=== PATIENT | male | born 1975 | race American Indian/Alaskan Native ===

== ENCOUNTER → 2020-08-29 14:52 | Outpatient (BNVA) | payer OTHER, SELFPAY | PROVIDERS: PCP Internal Medicine; Referring Provider Internal Medicine; Visit Provider Physician Assistant | DX: Z13.89 Encounter for screening for other disorder (principal) | CPT/HCPCS: Q3014 ==

== ENCOUNTER 2020-11-03 08:04 | Outpatient (REF) | payer OTHER, SELFPAY ==
--- NOTE | ~2020-11-03 | XR_ITS ---
EXAMINATION: XR knee LT 2V, XR knee standing BI CLINICAL INFORMATION: Reason for Exam M25.569 - Pain in unspecified knee COMPARISON: None available at the time of this dictation. TECHNIQUE: Bilateral frontal standing, left lateral and patella sunrise view. FINDINGS: BONES: No fracture or dislocation is present. JOINTS: Narrowing of joint spaces and developed osteophytes from the edges of articular surfaces suggest degenerative osteoarthritis. There is knee joint effusion. 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 Left Knee joint effusion.
--- NOTE | ~2020-11-03 | XR_ITS ---
EXAMINATION: XR knee LT 2V, XR knee standing BI CLINICAL INFORMATION: Reason for Exam M25.569 - Pain in unspecified knee COMPARISON: None available at the time of this dictation. TECHNIQUE: Bilateral frontal standing, left lateral and patella sunrise view. FINDINGS: BONES: No fracture or dislocation is present. JOINTS: Narrowing of joint spaces and developed osteophytes from the edges of articular surfaces suggest degenerative osteoarthritis. There is knee joint effusion. SOFT TISSUE: Normal XR/XR knee standing BI IMPRESSION: Mild degenerative osteoarthritis medial more than lateral compartments. Left Knee joint effusion.
== END 2020-11-03 08:05 | disposition home or self-care (01) ==
LOC: HO.HOSX 08:04
PROVIDERS: Visit Provider Orthopaedic Surgery
DX: M25.562 Pain in left knee (principal); M25.462 Effusion, left knee; M11.20 Other chondrocalcinosis, unspecified site
CPT/HCPCS: 20610; 73560; 73565; 99212

== ENCOUNTER → 2020-11-17 12:43 | Outpatient (BNVA) | payer OTHER, SELFPAY | PROVIDERS: Visit Provider Orthopaedic Surgery | DX: M11.20 Other chondrocalcinosis, unspecified site (principal) | CPT/HCPCS: 99212 ==

== ENCOUNTER → 2020-11-29 11:28 | Outpatient (BNVA) | payer OTHER, SELFPAY | PROVIDERS: PCP Internal Medicine; Visit Provider Physician Assistant ==

== ENCOUNTER 2023-09-11 14:11 | Emergency (ER) | payer OTHER, SELFPAY ==
--- NOTE | ~2023-09-11 | XR_ITS ---
EXAMINATION: XR HAND/WRIST, RIGHT CLINICAL INFORMATION: Pain after injury COMPARISON: None TECHNIQUE: PA, lateral, and oblique views of the right hand and wrist. FINDINGS: Arrow points to the ulnar aspect of the wrist. Soft tissues are mildly prominent with punctate hyperdensities radial aspect of the wrist. Chronic radial and ulnar styloid widening, question previous trauma. Radiocarpal and ulnar carpal joint space narrowings. Small bony densities adjacent to the ulna styloid. No acute fracture is recognized. XR/XR hand wrist RT IMPRESSION: Chronic appearing changes distal radius and ulna. No acute fracture recognized. Radial wrist soft tissue hyperdensities may be debris on/within the skin and/or in soft tissues.
[2023-09-11 14:12] VITALS: BP 133/95; PULSE 102; RESP 18; TEMP 36; O2SAT 97; BMI 35.7
--- NOTE | 2023-09-11 14:17 | ED_ITS ---
HPI - Extremity Problem General Chief complaint: Wound/Laceration Stated complaint: R Wrist Lac Time Seen by Provider: 09/11/23 14:34 Source: patient Mode of arrival: ambulatory Limitations: no limitations History of Present Illness HPI Narrative: Patient is a 48 year old assigned male at with a history of anemia presenting to the emergency department today with right wrist pain. Patient states that he was grinding something and the grinder set up operator thread kicked back and caught his right wrist. Patient states that he is up to date on his tetanus. Patient denies any dizziness, lightheadedness, abdominal pain, nausea, vomiting, fever, chills, blurry vision, double vision, loss of vision, chest pain, difficulty breathing, shortness of breath, back pain, night sweats, pain with urination, increased urinary frequency, increased urinary urgency, blood in his urine or stool, syncope or a near syncopal episode, bowel incontinence, bladder incontinence, bowel retention, bladder retention, or any other complaints at this time. MD Complaint: extremity pain Onset (ago): minute(s) Pain Consistency: constant Location: right and upper extremity Severity scale (1-10): 4 Quality: aching Radiation: none Relieving factors: nothing Exacerbating factors: nothing Associated symptoms: denies other symptoms Related Data Home Medications Medication Instructions Recorded Confirmed losartan 100 mg tablet 100 mg PO DAILY 08/29/20 08/29/20 naproxen 500 mg tablet 500 mg PO BID 11/03/20 Previous Rx's Medication Instructions Recorded cefuroxime axetil 250 mg tablet 250 mg PO BID 7 days #14 tabs 09/11/23 Allergies Allergy/AdvReac Type Severity Reaction Status Date / Time aspirin [ASPIRIN] AdvReac Unknown RASH Verified 09/11/23 14:12 Review of Systems 2 Constitutional: Constitutional: Reports no additional constitutional complaints, Denies chills, Denies fever(s) and Denies night sweats Eyes: Eyes: Reports no additional eye complaints, Denies blurry vision, Denies change in vision, Denies diplopia, Denies eye discharge, Denies loss of vision and Denies eye pain ENT: Denies dizziness Cardiovascular: Cardiovascular: Reports no additional cardiovascular complaints, Denies chest pain, Denies lightheadedness, Denies Loss of Consciousness and Denies dyspnea Respiratory: Respiratory: Reports no additional respiratory complaints and Denies dyspnea Gastrointestinal: Gastrointestinal: Reports no additional gastrointestinal complaints, Denies abdominal pain, Denies melena, Denies hematochezia, Denies change in bowel habits and Denies change in stool character Genitourinary: Genitourinary: Reports no additional male genitourinary complaints, Denies hematuria, Denies oliguria, Denies difficulty urinating, Denies dysuria, Denies urinary frequency, Denies urinary hesitancy, Denies urinary incontinence and Denies urinary urgency Musculoskeletal: Musculoskeletal: Reports no additional musculoskeletal complaints, Denies numbness and Denies tingling Comments: right wrist pain / laceration Neurologic: Denies dizziness, Denies loss of vision, Denies numbness and Denies tingling Psychiatric: Psychiatric: Reports no additional psychiatric complaints Endocrine: Endocrine: Reports no additional endocrine complaints Hematologic/Lymphatic: Hematologic/Lymphatic: Reports no additional hematologic/lymphatic complaints Allergic/Immunologic: Allergic/Immunologic: Reports no additional allergic/immunologic complaints PMFSH Past Medical History Attestation statement: The following information was validated with the patient. Source: old records reviewed and nursing notes reviewed Medical History Hypertension Knee arthropathy Anemia Social History Social History Household Members: Spouse and Children Alcohol intake: never Advance Directives: No Advance Directives Information Provided: No Current occupational status: unemployed Physical Exam 2 Vital Signs: Vital Signs: Last Vital Signs Temp 96.8 F 09/11/23 14:12 Pulse 102 H 09/11/23 14:12 Resp 18 09/11/23 14:12 BP 133/95 H 09/11/23 14:12 Pulse Ox 97 09/11/23 14:12 O2 Del Method Room Air 09/11/23 14:12 BMI result Body Mass Index 35.7 Const: General: cooperative, no acute distress, alert and awake Nutritional Appearance: well nourished Orientation/consciousness: patient oriented x3 Limitations: no limitations HEENT: Head: Yes normal to inspection and Yes atraumatic Ears: hearing grossly normal bilaterally and external ears normal General nose exam: Normal external nose present, no nasal discharge noted and no epistaxis Face and sinus: Yes normal facial exam, No abrasion and No laceration Mouth: Normal oral and palatal mucosa present, no drooling and no muffled voice Eyes: General: appearance normal, both eyes and all related structures P eriorbital: periorbital findings normal Eyelids: Yes eyelids normal C onjunctivae: conjunctivae normal Pupils: Equal, round and reactive pupils present EOM: EOMs intact bilaterally Neck: Neck: Yes normal visual inspection, Yes full ROM and Yes no lymphadenopathy Chest: Chest palpation & inspection: normal inspection of the chest Resp: Effort & Inspection: normal respiratory effort and able to speak in complete sentences GI: Inspection: Yes normal to inspection Neuro: General: patient oriented x3 and moves all extremities Cranial nerves: Yes Equal, round and reactive pupils present Cognition (Neuro): n ormal cognition Motor exam (neuro): 5/5 motor strength present throughout Sensory Exam: Normal double simultaneous stimulation for sensation C oordination: [id number] test normal Extrem: General: Yes full ROM and Yes capillary refill normal Elbow/forearm/wrist images: 1. 5cm laceration, no active bleeding Psych: Appearance: grossly normal Mental Status: mental status grossly normal Affect: normal affect Attitude: cooperative Thought process: N ormal thought process present Thought content: Normal thought content present Insight: Good insight present (Psych) Course Course Course Narrative: Laceration and injury of right wrist when it was closed in a door X-rays ordered This is rapid medical exam done in triage pending full evaluation and dispo by ER provider Medications Administered Discontinued Medications Generic Name Dose Route Start Last Admin Trade Name Freq PRN Reason Stop Dose Admin Lidocaine/Epinephrine 10 ml 09/11/23 14:57 09/11/23 16:39 Lidocaine Hcl 1%/Epi 1:100,000 10 Ml Vial SUBCUT 09/11/23 14:58 10 ml ONCE ONE Administration Medical Decision Making Medical Decision Making [facility] Narrative: Patient is a 48 year old assigned male at with a history of anemia presenting to the emergency department today with a right wrist laceration. Patient's physical exam was as noted in the physical exam portion of this note. Patient's right wrist x-ray showed no acute process. I explained my physical exam findings as well as all test results to the patient. I answered all questions asked by the patient. Patient's laceration was repaired without incident. Patient's PMS was intact prior to and after laceration repair. I stressed the importance of the patient taking his medication as prescribed. I stressed the importance of the patient having his sutures removed in 7-10 days. I stressed the importance of the patient performing wound checks and dressing changes. I stressed the importance of the patient following up with his primary care provider. I stressed the importance of the patient returning to the emergency department immediately if his symptoms were to worsen or if he were to develop any dizziness, shortness of breath, difficulty breathing, chest pain, blurry vision, loss of vision, nausea, vomiting, abdominal pain, fever, chills, back pain, or any other complaints. Patient verbalized agreement and understanding with this treatment plan and discharge. Differential Diagnosis Differential Diagnoses: The differential diagnosis associated with the presentation includes Forearm laceration Wrist laceration Wrist injury Admission/Observation Consideration of admission/observation: Escalation of care including admission/observation considered Patient would have been admitted to the hospital had his work up had any findings where hospital admission was appropriate and his clinical presentation warranted hospital admission. Independent Interpretation I performed an independent interpretation of an: Plain X-Ray Interpretation: My interpretation is in agreement with the radiologist's impression of this imaging study. - EXAMINATION: XR HAND/WRIST, RIGHT CLINICAL INFORMATION: Pain after injury COMPARISON: None TECHNIQUE: PA, lateral, and oblique views of the right hand and wrist. FINDINGS: Arrow points to the ulnar aspect of the wrist. Soft tissues are mildly prominent with punctate hyperdensities radial aspect of the wrist. Chronic radial and ulnar styloid widening, question previous trauma. Radiocarpal and ulnar carpal joint space narrowings. Small bony densities adjacent to the ulna styloid. No acute fracture is recognized. XR/XR hand wrist RT IMPRESSION: Chronic appearing changes distal radius and ulna. No acute fracture recognized. Radial wrist soft tissue hyperdensities may be debris on/within the skin and/or in soft tissues Dictated By: Susan Montoya MD Signed By: Electronically signed by Susan Montoya MD 09/11/23 1523 Radiology Impression Discussion of test interpretation with radiology: I have reviewed the radiologist's reading. Prescription Management I considered prescription management with: Antibiotic (given the mechanism of the patient's injury, antibiotic prescribed) Procedures Laceration Laceration 1: Site: upper extremity Side (If applicable): right Size (cm): 5 Description: irregular Depth: simple, single layer Local Anesthetic: lidocaine 1% and with epi Amount of anesthesia used (mL): 10 Pre-repair: wound explored, irrigated extensively and deep structures intact Skin layer closed with: other (prolene) Size (cm): 5-0 Number of sutures: 10 Technique: simple, interrupted Subcutaneous layer closed with: vicryl Size: 5-0 Number of sutures: 1 Technique: simple, interrupted Critical Care Time Critical Care Time Critical Care Time: Yes Total Critical Care Time: 40 Attestation: I spent 40 minutes of Critical Care Time with this patient. This does not include time spent on separately reported billable procedures. Discharge Plan Discharge Clinical Impression: Laceration Patient Disposition: Home, Self-Care Instructions: Care For Your Stitches (DC), Care For Your Absorbable Stitches (ED) Additional Instructions: Have your sutures removed in 7-10 days. Do NOT soak the affected area. Perform daily wound checks and dressing changes. Take your antibiotics. Follow up with your primary care provider. Return to the emergency department immediately if your symptoms worsen or if you develop any dizziness, shortness of breath, difficulty breathing, chest pain, blurry vision, loss of vision, nausea, vomiting, abdominal pain, fever, chills, back pain, or any other complaints. Rogelio que le retiren las suturas en 7 a 10 d?as. NO remoje el ?dominique afectada. Realice controles diarios de heridas y cambios de ap?sitos. [place] corby antibi?ticos. Rogelio un seguimiento con larry proveedor de atenci?n primaria. Regrese al departamento de emergencias inmediatamente si corby s?ntomas empeoran o si presenta mareos, dificultad para respirar, dificultad para respirar, dolor en el pecho, visi?n borrosa, p?rdida de la visi?n, n?useas, v?mitos, dolor abdominal, fiebre, escalofr?os, dolor de espalda o cualquier otras quejas. Prescriptions: New cefuroxime axetil 250 mg tablet 250 mg PO BID 7 Days Qty: 14 0RF No Action naproxen 500 mg tablet 500 mg PO BID losartan 100 mg tablet 100 mg PO DAILY Referrals: Juana Johnson MD [Primary Care Provider] - Interventions: ED Discharge Assessment Last Done: 09/11/23 17:17 Discharge Date/Time: 09/11/23 17:17 Print Language: Polish
[2023-09-11] MEDS: Lidocaine HCl 1%/Epi 1:100,000 10 ML VIAL SUBCUT (16:39)
== END 2023-09-11 17:17 | disposition home or self-care (01) ==
PROVIDERS: Emergency Provider Emergency Medicine Emergency Medical Services; PCP Internal Medicine
DX: S61.511A Laceration without foreign body of right wrist, initial encounter (principal); W29.8XXA Contact with other powered hand tools and household machinery, initial encounter; I10 Essential (primary) hypertension; D64.9 Anemia, unspecified; Y93.89 Activity, other specified; Y92.9 Unspecified place or not applicable; Y99.9 Unspecified external cause status
CPT/HCPCS: 12002; 73110; 73130; 99283; 99284

== ENCOUNTER 2023-09-20 12:06 | Emergency (ER) | payer OTHER, SELFPAY ==
[2023-09-20 12:29] VITALS: BP 132/78; PULSE 83; RESP 18; TEMP 36.8; O2SAT 97; BMI 34.4
--- NOTE | 2023-09-20 12:31 | ED.SKABFB ---
HPI - Skin/Abscess/Foreign Bdy General Chief complaint: Wound/Laceration Stated complaint: Suture Removal Time Seen by Provider: 09/20/23 12:43 Source: patient and court interpreter Mode of arrival: ambulatory Limitations: no limitations History of Present Illness HPI narrative: 48 year old Macedonian speaking male with pmhx significant for anemia presents to the ED today for suture removal. Endorses laceration to the dorsal aspect of right hand/wrist while using a bench grinder at home on 09/11/23. He was evaluated in our ED same day with 10 sutures placed. He was advised to return in 7-10 days for removal He presents today (9 days later) for removal. He endorses some numbness over the suture site which has been present since laceration occurred. Has full ROM to right fingers/wrist. Denies fever, chills, N/V, warmth over the wound or drainage. Related Data Home Medications Medication Instructions Recorded Confirmed losartan 100 mg tablet 100 mg PO DAILY 08/29/20 08/29/20 naproxen 500 mg tablet 500 mg PO BID 11/03/20 Previous Rx's Medication Instructions Recorded cefuroxime axetil 250 mg tablet 250 mg PO BID 7 days #14 tabs 09/11/23 neomycin-bacitracn Zn-polymyx 3.5 1 appl topical BID #28.3 grams 09/20/23 mg-400 unit-5,000 unit/gram top oint (Neosporin ([id number])) Allergies Allergy/AdvReac Type Severity Reaction Status Date / Time aspirin [ASPIRIN] AdvReac Unknown RASH Verified 09/20/23 12:29 Review of Systems Review of Systems: Constitutional: No fever, chills, fatigue, night sweats, weight changes ENT/Mouth: No ear pain, hearing loss, nasal congestion, sinus pain, rhinorrhea, sore throat Eyes: No eye pain, swelling, redness, vision changes, discharge Cardio: No chest pain, palpitations, BLACK, orthopnea, peripheral edema Pulm: No SOB, cough, sputum, wheezing, dyspnea, hemoptysis GI: No nausea, vomiting, hematemesis, abdominal pain, diarrhea, constipation, hematochezia, melena : No irregular bleeding, dysuria, frequency, urgency, hesitancy, hematuria, flank pain, urinary flow changes, urinary incontinence or retention MSK: No back pain, neck pain, joint pain, myalgias Skin: No lesions, rashes, +lac w/ sutures to right hand/wrist Neuro: No weakness, numbness, paresthesias, LOC, dizziness, headache Psych: No anxiety/panic, depression, SI/HI, AH/VH All other systems reviewed and are negative. [facility] Past Medical History Attestation statement: The following information was validated with the patient. Source: old records reviewed and nursing notes reviewed Medical History Hypertension Knee arthropathy Anemia Social History Social History Household Members: Spouse and Children Alcohol intake: never Advance Directives: No Advance Directives Information Provided: No Current occupational status: unemployed Physical Exam Vital Signs: Vital Signs: Last Vital Signs Temp 98.3 F 09/20/23 12:29 Pulse 83 09/20/23 12:29 Resp 18 09/20/23 12:29 BP 132/78 09/20/23 12:29 Pulse Ox 97 09/20/23 12:29 O2 Del Method Room Air 09/20/23 12:29 BMI result Body Mass Index 34.4 Vital signs stable. Const: General: cooperative, healthy appearing, comfortable and no acute distress Orientation/consciousness: patient oriented x3 Limitations: no limitations HEENT: Head: Yes normal to inspection, Yes No palpable skull fracture present, Yes normocephalic and Yes atraumatic Eyes: General: appearance normal, both eyes and all related structures Conjunctivae: conjunctivae normal Sclerae: sclerae normal Pupils: Equal, round and reactive pupils present Neck: Neck: Yes normal visual inspection and Yes no lymphadenopathy Resp: Effort & Inspection: normal respiratory effort Cardio: Other: 2+ radial and ulnar pulses Neuro: General: patient oriented x3 Cranial nerves: Yes Equal, round and reactive pupils present Extrem: Other: + 5 cm laceration noted to dorsal radial aspect of right wrist/ hand. [address] Clean, dry, and intact. No palpable warmth. No drainage. Healing well. Sensation over dorsal thumb mildly decreased. Full ROM intact to MCP/DIP of right thumb. Full ROM intact to right wrist. Screen Printing Press Operator strength intact. Finger to thumb opposition intact. Elbow/forearm/wrist images: 1. lac with sutures in place Course Course Course Narrative: 1245-- 10 sutures removed. patient tolerated well. no discharge or bleeding. healing well. bandage applied. Neosporin sent to pharmacy. Patient has remained stable throughout ED visit today. Discussed worrisome signs and symptoms and when to return to the ED. All questions answered at this time. Patient is agreeable with disposition and stable for discharge. Medical Decision Making Medical Decision Making [facility] Narrative: 48 year old Macedonian speaking male with pmhx significant for anemia presents to the ED today for suture removal. Vital signs stable. He is nontoxic appearing and in NAD. There is a 5 cm laceration noted to dorsal radial aspect of right wrist/ hand. [address] Clean, dry, and intact. No palpable warmth. No drainage. Healing well. Sensation over dorsal thumb mildly decreased. Full ROM intact to MCP/DIP of right thumb. Full ROM intact to right wrist. Screen Printing Press Operator strength intact. Finger to thumb opposition intact. ddx includes healing lac. no suspicion for infection, sepsis or bacteremia.Plan for suture removal and discharge. Differential Diagnosis Differential Diagnoses: The differential diagnosis associated with the presentation includes as above. Admission/Observation not indicated. Independent Historian Clinical information obtained from an independent historian. History obtained from or confirmed by: Spouse External Record Review External record reviewed: Inpatient record Prescription Management I considered prescription management with: Pain Medication and Antibiotic Social Determinants Patient?s care significantly limited by Social Determinants of Health including: Other Social Determinant of Health Discharge Plan Discharge Clinical Impression: Encounter for removal of sutures Patient Disposition: Home, Self-Care Instructions: Stitches Removal (ED) Additional Instructions: 10 sutures were removed from your right wrist/hand today. You may apply bacitracin or nesporin at home as needed. This has been sent to your pharmacy. Please return to the ED if the area opens, begins draining, you spike a fever, or have difficulty moving your hand as these may be signs of infection. Follow up with PCP as needed. In the case of emergency call 911. [place] le quitaron 10 suturas de larry mano derecha. Puede aplicar bacitracina o nesporina en casa seg?n sea necesario. [place] sido enviado a larry farmacia. Regrese al servicio de urgencias si el ?dominique se abre, comienza a drenar, tiene fiebre o tiene dificultad para furniture mover driver la mano, ya que estos pueden ser signos de infecci?n. Rogelio un seguimiento con el PCP seg?n sea necesario. En marco de emergencia llame al 911. Prescriptions: New Neosporin ([id number]) 3.5mg-400 unit- 5,000 unit/gram ointment 1 appl topical BID Qty: 28.3 0RF No Action cefuroxime axetil 250 mg tablet 250 mg PO BID 7 Days Qty: 14 0RF naproxen 500 mg tablet 500 mg PO BID losartan 100 mg tablet 100 mg PO DAILY Interventions: ED Discharge Assessment Last Done: 09/20/23 12:45 Discharge Date/Time: 09/20/23 12:45 Print Language: Macedonian
== END 2023-09-20 12:45 | disposition home or self-care (01) ==
PROVIDERS: Emergency Provider Emergency Medicine; PCP Internal Medicine
DX: Z48.02 Encounter for removal of sutures (principal)
CPT/HCPCS: 99282

== ENCOUNTER 2023-10-08 11:18 | Emergency (ER) | payer OTHER, SELFPAY ==
[2023-10-08 11:32] VITALS: BP 149/72; PULSE 76; RESP 16; TEMP 36.6; O2SAT 98; BMI 34.7
--- NOTE | 2023-10-08 11:39 | ED_ITS ---
HPI - General Adult General Chief complaint: Eye Problems Stated complaint: Eye irritation Time Seen by Provider: 10/08/23 13:23 Source: patient Mode of arrival: ambulatory Limitations: no limitations History of Present Illness HPI narrative: This is a 48-year-old male presenting to the emergency department complaints of sore throat, fatigue, malaise, cough, right eye redness ( and pain behind R eye), with associated discharge ongoing for the past week not improving. He denies any recent eye trauma. Denies sick contacts. Patient denies fevers, chills, chest pain, shortness breath, nausea, vomiting, abdominal pain, headache, visual disturbances, foreign body sensation in eye, weakness, pain with eye movements or eye pain. Related Data Home Medications Medication Instructions Recorded Confirmed losartan 100 mg tablet 100 mg PO DAILY 08/29/20 08/29/20 naproxen 500 mg tablet 500 mg PO BID 11/03/20 Previous Rx's Medication Instructions Recorded cefuroxime axetil 250 mg tablet 250 mg PO BID 7 days #14 tabs 09/11/23 neomycin-bacitracn Zn-polymyx 3.5 1 appl topical BID #28.3 grams 09/20/23 mg-400 unit-5,000 unit/gram top oint (Neosporin ([id number])) amoxicillin 875 mg-potassium 1 tab PO BID 10 days #20 tabs 10/08/23 clavulanate 125 mg tablet erythromycin 5 mg/gram (0.5 %) eye 1 appl ophthalmic (eye) TID 5 days 10/08/23 ointment #3.5 grams Allergies Allergy/AdvReac Type Severity Reaction Status Date / Time aspirin [ASPIRIN] AdvReac Unknown RASH Verified 10/08/23 11:36 Review of Systems Review of Systems: Yes all other systems are reviewed and are negative PMFSH Past Medical History Attestation statement: The following information was validated with the patient. Source: old records reviewed and nursing notes reviewed Medical History Hypertension Knee arthropathy Anemia Social History Social History Household Members: Spouse and Children Alcohol intake: never Advance Directives: Yes Advance Directives Information Provided: Yes Advance Directives on File: No Current occupational status: unemployed Physical Exam ED Vital Signs: Vital Signs - 24 hr 10/08/23 11:32 Temperature 97.8 F Pulse Rate 76 Respiratory Rate 16 Blood Pressure 149/72 H Pulse Oximetry 98 Oxygen Delivery Method Room Air BMI result Body Mass Index 34.7 vss Appearance: Alert.? Oriented X3.? No acute distress.? Head: Normocephalic, atraumatic, no step-offs or deformities Eyes: Pupils equal, round and reactive to light.? Extraocular movements intact and pain-free. Neck: Normal inspection.? Neck supple.? CVS: Normal heart rate and rhythm.? Pulses normal.? Respiratory: No respiratory distress.? Breath sounds normal.? Abdomen: Soft and nontender.? Skin: Skin warm and dry.? Normal skin color.? Normal skin turgor.? Extremities: No lower extremity edema.? No calf ttp. 5/5 strength to bilateral upper and lower extremities Back: No midline tenderness, no C-spine tenderness, full range of motion, no CVA tenderness bilaterally Neuro: Oriented X 3.? No motor deficit.? No sensory deficit. CN 2-12 intact Course Course Course Narrative: RME: 48-year-old male presents to ED for sore throat, or cough, itchy throat, and red eye redness with clear discharge. Patient denies any recent eye trauma. SARs strep to be ordered. [place] [facility] [place]evaluation(s) Reevaluation #1: Eye pressure l; 18, r:22 based off patient history and physical exam will treat with Augmentin for possible sinusitis versus early periorbital cellulitis. No signs of orbital cellulitis no indication for imaging I did discuss this case with my attending who agrees with diagnosis and treatment plan Educated patient on diagnosis and treatment plan, answered all question, patient verbalizes understanding. At this time patient will be discharged home, advised to return with new or worsening symptoms. Educated on worrisome signs and symptoms and when to return. At this time I feel comfortable discharge home. Time: 13:46 Medical Decision Making Medical Decision Making [facility] Narrative: 1325 48-year-old male presents with URI symptoms and right eye redness for the past week. Physical exam significant Concerned for sinusitis vs URI vs bronchitis vs viral pharyngitis with concomitant conjunctivitis. Unlikely PE, pneumonia, acute respiratory distress, acute closed angle glaucoma, wet macular degeneration, corneal abrasion, corneal ulcer. Plan at this time viral test, strep test. Differential Diagnosis Differential Diagnoses: The differential diagnosis associated with the presentation includes Concerned for sinusitis vs URI vs bronchitis vs viral pharyngitis with concomitant conjunctivitis. Unlikely PE, pneumonia, acute respiratory distress, acute closed angle glaucoma, wet macular degeneration, corneal abrasion, corneal ulcer. Admission/Observation Consideration of admission/observation: Escalation of care including admission/observation considered unlikely Consult Healthcare Provider Management of the patient was discussed with: Business Systems Advisor (My attending) Lab Data MDM Lab Attestation statement: I reviewed the patient's lab results. Labs: Lab Results 10/08/23 Range/Units 12:30 Influenza Type A (PCR) NEGATIVE (Negative) Influenza Type B (PCR) NEGATIVE (Negative) RSV RNA Qual (PCR) NEGATIVE (Negative) SARS-CoV-2 RNA (RT-PCR) NEGATIVE (Negative) S. pyogenes GrpA TOM Negative (Negative) Tests considered The following testing was considered but not selected: Breath sounds clear -no indication for cxr Extraocular movements intact and pain-free. No indication for orbital CT. Prescription Management I considered prescription management with: Antibiotic (z pack and conjunctivitis ) and Other Critical Care Time Critical Care Time Critical Care Time: No Discharge Plan Discharge Clinical Impression: Conjunctivitis, URI (upper respiratory infection), Sinusitis Patient Disposition: Home, Self-Care Instructions: Sinusitis (ED), Upper Respiratory Infection (ED), Conjunctivitis (ED) Additional Instructions: Take your medications as prescribed. If you were prescribed antibiotics today, it is important that you take your medication to their entirety, do not skip any doses, do not finish them early. Follow-up with your primary care provider this week. Return to the emergency department with new or worsening symptoms. Such as fevers, chills, chest pain, shortness of breath, nausea, vomiting, dizziness, headache, vision changes, lethargy In case of emergency call 911 Prescriptions: New erythromycin 5 mg/gram (0.5 %) ointment 1 appl ophthalmic (eye) TID 5 Days Qty: 3.5 0RF amoxicillin-pot clavulanate 875-125 mg tablet 1 tab PO BID 10 Days Qty: 20 0RF No Action cefuroxime axetil 250 mg tablet 250 mg PO BID 7 Days Qty: 14 0RF Neosporin (ygn-ubk-kxtvi) 3.5mg-400 unit- 5,000 unit/gram ointment 1 appl topical BID Qty: 28.3 0RF naproxen 500 mg tablet 500 mg PO BID losartan 100 mg tablet 100 mg PO DAILY Referrals: Juana Johnson MD [Primary Care Provider] - 2 days Stand Alone Forms: Work/School Release Interventions: ED Discharge Assessment Last Done: 10/08/23 14:09 Discharge Date/Time: 10/08/23 14:10
[2023-10-08 12:51] LABS: IDNOW Serial# 08D9AD1C; Strep A Nucleic Acid Negative (Negative)
[2023-10-08 13:26] LABS: Influenza A PCR NEGATIVE (Negative); Influenza B PCR NEGATIVE (Negative); Resp Syncy Virus RNA Qual PCR NEGATIVE (Negative); SARS COV2 PCR INHOUSE NEGATIVE (Negative)
== END 2023-10-08 14:10 | disposition home or self-care (01) ==
PROVIDERS: Emergency Provider Emergency Medicine Emergency Medical Services; PCP Internal Medicine
DX: H10.33 Unspecified acute conjunctivitis, bilateral (principal); J06.9 Acute upper respiratory infection, unspecified; J32.9 Chronic sinusitis, unspecified; Z20.822 Contact with and (suspected) exposure to COVID-19; Z11.52 Encounter for screening for COVID-19
CPT/HCPCS: 0241U; 87651; 99283; 99284

== ENCOUNTER 2024-08-20 09:49 | Outpatient (REF) | payer OTHER, SELFPAY ==
[2024-08-20 11:44] LABS: Alanine Aminotransferase 33 U/L (0-40); Albumin Level 3.8 g/dL (3.5-5.0); Alkaline Phosphatase 74 U/L (39-117); Anion Gap 10 (12-20); Aspartate Amino Transferase 34 U/L (5-37); Bilirubin Total 0.4 mg/dL (0.0-1.0); Blood Urea Nitrogen 21 mg/dL (9-16); Calcium 9.6 mg/dL (8.4-10.2); Carbon Dioxide 29 mmol/L (22-29); Chloride 108 mmol/L (96-108); Cholesterol 152 mg/dL (<200); Estimated Glomerular Filt Rate > 60; Glucose Random 122 mg/dL (60-115); HDL Cholesterol 41 mg/dL (>40); LDL Cholesterol Calculated 61 mg/dL (<100); Potassium 3.8 mmol/L (3.3-5.1); Sodium 143 mmol/L (135-145); Total Protein 7.2 g/dL (6.5-8.0); Triglycerides 251 mg/dL (<150)
[2024-08-20 12:16] LABS: Creatinine Urine 364.36 mg/dL
[2024-08-20 12:27] LABS: Microalbum/Creatinine Ratio Ur 346.3 ug/mg cr (<30)
== END 2024-08-20 09:50 | disposition home or self-care (01) ==
LOC: HO.HHCL 09:49
PROVIDERS: Visit Provider Internal Medicine
DX: E11.9 Type 2 diabetes mellitus without complications (principal)
CPT/HCPCS: 36415; 80053; 80061; 82043; 82570

== ENCOUNTER 2024-10-23 13:05 | Outpatient (REF) | payer OTHER, SELFPAY ==
[2024-10-23 16:21] LABS: MANUAL DIFF FLAG NO
[2024-10-23 16:31] LABS: Basophils Absolute Auto 0.1 X10*3/uL (0.0-0.2); Basophils Percent Auto 0.5 % (0-2); Eosinophils Absolute Auto 0.4 X10*3/uL (0.0-0.4); Eosinophils Percent Auto 4.7 % (0-4); Hematocrit 43.8 % (42.0-52.0); Hemoglobin 14.1 g/dl (14.0-18.0); Imm Gran Abs Auto 0.04 X10*3/uL (0.00-0.03); Imm Gran Pct Auto 0.4 % (0.0-0.4); Lymphocytes Absolute Auto 1.6 X10*3/uL (1.2-4.9); Lymphocytes Percent Auto 16.9 % (20-40); Mean Corpuscular HGB Conc 32.2 g/dl (31.0-36.0); Mean Corpuscular Hemoglobin 27.1 pg (27.0-33.0); Mean Corpuscular Volume 84.1 fL (80.0-98.0); Mean Platelet Volume 11.4 fL (9.4-12.4); Monocytes Absolute Auto 0.8 X10*3/uL (0.1-1.2); Monocytes Percent Auto 8.9 % (2-11); Neutrophils Absolute Auto 6.5 x10*3/uL (2.0-8.3); Neutrophils Percent Auto 68.6 % (45-73); Platelet Count 197 X10*3/uL (160-400); Red Blood Count 5.21 X10*6/uL (4.60-5.80); Red Cell Distribution Width 15.8 % (11.0-16.0); White Blood Count 9.5 X10*3/uL (4.8-10.8)
[2024-10-23 17:23] LABS: Anion Gap 13 (12-20); Blood Urea Nitrogen 17 mg/dL (9-16); Calcium 9.5 mg/dL (8.4-10.2); Carbon Dioxide 26 mmol/L (22-29); Chloride 106 mmol/L (96-108); Estimated Glomerular Filt Rate > 60; Glucose Random 108 mg/dL (60-115); Potassium 3.8 mmol/L (3.3-5.1); Sodium 141 mmol/L (135-145)
[2024-10-23 17:42] LABS: TSH reflex Free T4 1.11 uIU/mL (0.32-4.0)
[2024-10-29 13:38] LABS: Testosterone, Total 237 ng/dL (250-1100)
== END 2024-10-23 13:06 | disposition home or self-care (01) ==
LOC: HO.HHCL 13:05
PROVIDERS: Visit Provider Internal Medicine
DX: R53.83 Other fatigue (principal); I10 Essential (primary) hypertension
CPT/HCPCS: 36415; 80048; 84403; 84443; 85025

== ENCOUNTER 2025-01-07 14:45 | Outpatient (REF) | payer OTHER, SELFPAY ==
[2025-01-07 16:53] LABS: Urine Cytology See Pathology rpt
== END 2025-01-07 14:46 | disposition home or self-care (01) ==
LOC: HO.LNP 14:45
PROVIDERS: PCP Internal Medicine; Visit Provider Nurse Practitioner Family
DX: R31.29 Other microscopic hematuria (principal); E29.1 Testicular hypofunction; E11.69 Type 2 diabetes mellitus with other specified complication; R80.9 Proteinuria, unspecified; N52.1 Erectile dysfunction due to diseases classified elsewhere; R68.82 Decreased libido
CPT/HCPCS: 81003; 88112; 99202

== ENCOUNTER 2025-01-07 14:45 | Outpatient (AMB) | payer OTHER, SELFPAY ==
--- NOTE | 2025-01-07 14:59 | A.OFFVIS_ITS ---
Intake Visit Reasons: low testosterone Intake Note: New Patient presents for initial visit for low testosterone Urology Medications: none Blood Thinner: none Plumbing Warehouse Helper Required: Yes Plumbing Warehouse Helper Services: Plumbing Warehouse Helper Present Plumbing Warehouse Helper Name: Tylor [email or web address] Accompanied by: Self / Same As Patient Allergies aspirin [ASPIRIN] Adverse Reaction (Unknown, Verified 01/08/25 08:50) RASH Medication List - Last Reconciled 01/08/25 by AUBREY Blair-ERIN amlodipine 5 mg PO DAILY atorvastatin 20 mg PO DAILY colchicine mg PO hydrochlorothiazide 50 mg PO DAILY losartan 100 mg PO DAILY metformin ER 500 mg PO DAILY HPI Comments Details: Elton is pleasant 49-year-old Arabic-speaking male patient of Dr. Adkins. He has a past medical history of anemia and hypertension. He presents to the office today as a new patient for hypogonadism. In discussion with the patient today he reports having followed up with his PCP and discussing issues with low libido and maintaining his erections at which time his testosterone was drawn for further assessment evaluation and recommendations were made for urology referral. These results were reviewed and communicated with the patient today. Testosterone: 10/20 237 He reports symptoms of low libido and ED have been present for the last couple of years however feels they are worsening. We did discussed potential causes of hypogonadism as well as further workup to include labs. We did discussed lifestyle modifications to assist with hypogonadism. We also discussed further treatment options and risks and benefits of these treatment options. He denies any bothersome urinary issues. He denies urinary urgency, urinary frequency, incontinence, nocturia, hematuria, dysuria, foul smelling urine, changes to urinary stream, flank pain, fever, and or chills. He is happy with his current voiding parameters. In office urinalysis results reviewed with the patient today 3+ microscopic hematuria and 3+ proteinuria. He denies any known workplace chemical exposure or history of smoking. We did discussed potential causes of microscopic hematuria as well as further workup in risks and benefits of these interventions. I discussed reasons for blood in the urine may include but are not limited to kidney stones, cancer in the urinary tract, BPH, kidney stone disease or inflammatory conditions of the urinary tract. I have discussed workup to include cystoscopy evaluation. All questions were answered. He otherwise offers no other issues or concerns at this time. [facility] Medical History Hypertension Knee arthropathy Anemia Social History Household Members: Spouse and Children Alcohol intake: never Current occupational status: unemployed Review of Systems Const All systems reviewed & are unremarkable except as noted in HPI and below Physical Exam Const General: cooperative, healthy appearing, comfortable, no acute distress, well developed, alert and awake Nutritional Appearance: overweight Orientation/consciousness: patient oriented x3 Limitations: language barrier HEENT Head: Yes normal to inspection, Yes normocephalic and Yes atraumatic Ears: hearing grossly normal bilaterally Eyes General: appearance normal, both eyes and all related structures Neck Neck: Yes normal visual inspection and Yes trachea midline Chest Chest palpation & inspection: normal inspection of the chest Resp Effort & Inspection: normal respiratory effort and able to speak in complete sentences Cardio Rate: regular rate GI Inspection: Yes normal to inspection General: Yes no CVA tenderness Back/Spine/Pelvis Back: no CVA tenderness Skin General skin exam: no rashes or lesions noted Neuro General: patient oriented x3 Extrem General: Yes normal to inspection Psych Appearance: grossly normal and well kempt Mental Status: mental status grossly normal Speech and movement: Normal speech and movement present and Clear speech present Affect: normal affect Attitude: cooperative Thought process: Normal thought process present Thought content: Normal thought content present Insight: Fair insight present (Psych) Judgement: Fair judgement present (Psych) Results AMB Urinalysis, Automated UA Leukoctes 0 Elisabet/uL Last Edit by ALBERTINA Leon on 01/07/25 15:25 UA Nitrite Last Edit by ALBERTINA Leon on 01/07/25 15:25 UA Urobilinogen 0.2 mg/dL Last Edit by ALBERTINA Leon on 01/07/25 15:2 5 UA Protein 300 mg/dL Last Edit by ALBERTINA Leon on 01/07/25 15:25 UA pH 6.0 Last Edit by Britt Bernabe, CCMA on 01/07/25 15:25 UA Blood 200 Samuel/uL Last Edit by Britt Bernabe, [facility] on 01/07/25 15:25 UA Specific Bovey 1.020 Last Edit by Britt Bernabe, [facility] on 01/07/25 15: 25 UA Ketone Last Edit by Britt Bernabe, [facility] on 01/07/25 15:25 UA Bilirubin 0 mg/dL Last Edit by Britt Bernabe, [facility] on 01/07/25 15:25 UA Glucose 0 mg/dL Last Edit by Britt Bernabe, [facility] on 01/07/25 15:25 Results Reviewed Results Reviewed: Laboratory Last Values Urine pH (Auto) 6.0 01/07/25 15:12 Specific Bovey (Auto) 1.020 01/07/25 15:12 Urine Protein (Auto) 300 mg/dL 01/07/25 15:12 Glucose (UA)(Auto) 0 mg/dL 01/07/25 15:12 Urine Blood (Auto) 200 Samuel/uL 01/07/25 15:12 Urine Bilirubin (Auto) 0 mg/dL 01/07/25 15:12 Urine Urobilinogen (Auto) 0.2 mg/dL 01/07/25 15:12 Leukocyte Esterase (Auto) 0 Elisabet/uL 01/07/25 15:12 Assessment & Plan Assessment & Plan (1) Hypogonadism in male: Code(s): E29.1 - Testicular hypofunction Category: Medical (2) Microscopic hematuria: Code(s): R31.29 - Other microscopic hematuria Category: Medical (3) Proteinuria: Code(s): R80.9 - Proteinuria, unspecified Category: Medical (4) Erectile dysfunction associated with type 2 diabetes mellitus: Code(s): E11.69 - Type 2 diabetes mellitus with other specified complication; N52.1 - Erectile dysfunction due to diseases classified elsewhere Category: Medical (5) Low libido: Code(s): R68.82 - Decreased libido Category: Medical Plan In office urinalysis results with the patient today; as noted above; will send for urine cytology. We discussed potential causes of hypogonadism as well as further treatment options and risks and benefits of these treatment options. We discussed lifestyle modifications. Will obtain testosterone free testosterone, PSA, prolactin, LH, SHBG, and estradiol for further assessment evaluation. We discussed potential causes of microscopic hematuria as well as further workup in risks and benefits of these interventions. Will refer to Nephrology for proteinuria. We discussed at length the importance of management and diabetes for improvement in overall health and well-being in addition to weight management. He currently denies any bothersome urinary issues. He reports be happy with current voiding parameters. Follow-up in 1-3 months with labs to be completed prior; or sooner with any issues, concerns, and or questions. Orders: Orders AMB Urinalysis Automated 01/07/25 Z13.9 - Encounter for screening, unspecified Urine Cytology 01/07/25 R31.29 - Other microscopic hematuria Testosterone, Free/Total 01/07/25 E29.1 - Testicular hypofunction Prostate Specific Antigen 01/07/25 E29.1 - Testicular hypofunction Prolactin 01/07/25 E29.1 - Testicular hypofunction Lutenizing Hormone 01/07/25 E29.1 - Testicular hypofunction Sex Hormone Binding Globulin 01/07/25 E29.1 - Testicular hypofunction Estradiol Ultra Sensitive 01/07/25 E29.1 - Testicular hypofunction Urine Cytology Today R31.29 - Other microscopic hematuria Referrals Nephrology Referral R80.9 - Proteinuria, unspecified Patient Instructions: The patient had an opportunity to ask questions regarding the treatment plan. All questions were answered. Physical exam, labs, and imaging were discussed and reviewed in detail. As well as risks, benefits, and discussion of treatment choices. No major barriers to understanding were identified. The patient expressed understanding and agreement with the above treatment plan. The patient was made aware they should contact our office by phone for worsening of their current condition, the appearance of new symptoms, or with any questions or concerns. Compliance is encouraged with any medications and follow up testing that is ordered. It is a privilege to be allowed the opportunity to participate in? your urological care.? Again, if you have any questions or co ncerns If you have any questions or concerns please do not hesitate to contact me. The office is [phone]. This note is constructed using voice recognition software. While every effort has been made to ensure accuracy lithographic proofer apprentice errors may have been included. Yours sincerely, ORESTES Blair Coding Level of Care Code New Pt Level 4 (81789) Diagnoses Hypogonadism in male E29.1 Microscopic hematuria R31.29 Proteinuria R80.9 Erectile dysfunction associated with type 2 diabetes mellitus E11.69; N52.1 Low libido R68.82 Time Spent (min) 35
--- OUTSIDE RECORDS SUMMARY | 2025-01-07 17:21 | XMS_ITS | Clinical Summary ---
Author Organization [employer] Address [address] [facility] [address] [place] [address] Care Team Providers Care Parent Aide Name Role Phone Juana Johnson MD Primary Care Provide r Allergies Active Allergy Reactions Criticality Noted Date Comments Aspirin Rash Low 09/11/2023 Medications acetaminophen (Tylenol 8 Hour) 650 MG ER tablet Take 2 tablets by mouth every 8 (eight) hours. 1 Active ciprofloxacin (Cipro) 250 MG tablet Take 1 tablet by mouth every 12 (twelve) hours. 9 Active cyclobenzaprine (Flexeril) 5 MG tablet Take 1 tablet by mouth every 8 (eight) hours. 0 Active dextran 70-hypromellose (dextran-70 & hydroxypropyl methylcellulose) 0.1-0.3 % ophthalmic solution 2 drops every 8hrs 1 Active ergocalciferol (Vitamin D-2) 1.25 MG (49332 UT) capsule take 1 capsule by oral route every week 2 Active ferrous sulfate 325 (65 Fe) MG tablet take 1 by Oral route every day in the AM 2 Active glucose blood (FREESTYLE LITE) test strip use twice to three times a day as directed 2 Active lidocaine (Lidoderm) 5 % patch Place 1 patch on the skin at bed time. 0 Active lidocaine (Xylocaine) 5 % ointment Apply topically at bed time. 0 Active olopatadine (Patanol) 0.1 % ophthalmic solution Administer 1 drop into affected eye(s) every 12 (twelve) hours. 1 Active predniSONE (Deltasone) 20 MG tablet Take 2 tablets by mouth at bed time. 0 Active cetirizine (ZyrTEC) 10 MG tablet Take 1 tablet (10 mg) by mouth in the morning. 30 tablet 11 4 Active hydroCHLOROthiazi de (HYDRODiuril) 50 MG tabletIndications :Essential hypertension TAKE 1 TABLET BY MOUTH EVERY DAY 90 tablet 3 4 Active atorvastatin (Lipitor) 20 MG tabletIndications :Essential hypertension Take 1 tablet (20 mg) by mouth Once per day. 90 tablet 3 4 Active amLODIPine (Norvasc) 5 MG tabletIndications :Essential hypertension Take 1 tablet (5 mg) by mouth Once per day. 90 tablet 3 4 Active Alcohol Swabs (Alcohol Prep) 70 % padsIndications:T ype 2 diabetes mellitus without complication, without long-term current use of insulin (CMS/HCC) 1 each 2 times daily. 100 each 3 4 Active colchicine 0.6 MG tabletIndications :Articular gout Take 1 tablet (0.6 mg) by mouth Once per day. 60 tablet 6 4 Active metFORMIN, OSM, (Fortamet) 500 MG 24 hr tabletIndications :Type 2 diabetes mellitus without complication, without long-term current use of insulin (CMS/HCC) Take 1 tablet (500 mg) by mouth with evening meal. Do not crush, chew, or split. 30 tablet 11 4 Active Lancets miscIndications:T ype 2 diabetes mellitus without complication, without long-term current use of insulin (CMS/HCC) Use to test blood sugar 2 times daily 100 each 4 Active naproxen (Naprosyn) 500 MG tablet TAKE 1 TABLET BY MOUTH TWICE DAILY IN THE MORNING AND IN THE EVENING WITH MEALS 60 tablet 1 4 Active Blood Pressure Monitoring (Blood Pressure Cuff) miscIndications:E ssential hypertension 1 each Once daily. 1 each 5 Active FREESTYLE LITE test stripIndications: Type 2 diabetes mellitus without complication, without long-term current use of insulin (CMS/HCC) Use to test blood sugar 1 times daily 100 each 1 5 026 Active Lancets miscIndications:T ype 2 diabetes mellitus without complication, without long-term current use of insulin ([facility]) Use to test blood sugar 1 times daily 100 each 1 5 Active Alcohol Swabs 70 % padsIndications:T ype 2 diabetes mellitus without complication, without long-term current use of insulin ([facility]) Use to test blood sugar 1 times daily 100 each 1 5 Active Blood Glucose Monitoring Suppl (FreeStyle [place] Lite) w/Device kitIndications:Ty pe 2 diabetes mellitus without complication, without long-term current use of insulin ([facility]) Use to test blood sugar 1 times daily 1 kit 5 Active losartan (Cozaar) 100 MG tablet Take 1 tablet (100 mg) by mouth in the morning. 90 tablet 3 5 026 Active melatonin 5 MG tabletIndications :Primary insomnia TAKE 1 TABLET BY MOUTH EVERY DAY AT BEDTIME 30 tablet 2 5 Active FREESTYLE LITE test stripIndications: Type 2 diabetes mellitus without complication, without long-term current use of insulin ([facility]) Use to test blood sugar 2 times daily 100 each 12 4 025 Active Problems Problem Noted Date Diagnosed Date Low testosterone in male 10/30/2024 Other fatigue 10/23/2024 Assessment & Plan (10/23/2024 2:44 PM EDT): I will order labs today, I will contact him with results Flu-like symptoms 10/23/2024 Assessment & Plan (10/23/2024 2:44 PM EDT): I advise to rest and increase fluid intake Primary insomnia 08/04/2024 Assessment & Plan (08/04/2024 4:23 PM EST): Extensive discussion regarding sleep hygiene done during this visit ( no screens before bed, no caffeine, no heavy meal before going to bed, diminish amount of fluids at night, appropriate room environment, go to bed only when ready to go to sleep) Melatonin 5mg at bed time Chronic tension-type headache, not intractable 0 08/04/2024 Assessment & Plan (08/04/2024 4:22 PM EST): Probably tension type vs uncontrolled HTN I advised maintain hydration Acetaminophen 1000mg Q 8hrs PRN Melatonin for insomnia Better BP control Viral upper respiratory tract infection 12/24/19 Assessment & Plan (12/24/2023 10:00 AM EDT): Drink plenty of fluids and rest Left foot pain 09/25/2023 Bilateral bunions 09/25/2023 Anemia 12/10/2022 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 Initial goal of 30 min walk 3-5x/week. Increase as tolerated. - low-sodium diet (goal: <2g/day) and heart healthy diet such as DASH to reduce BP and prevent ASCVD. - Home BP monitoring 1-2 x day with goal of <140/90. - Seek immediate medical attention for chest pain, palpitations, SOB, syncope, or sudden changes in mental status. - Do not change or discontinue current prescriptions without first consulting health care provider Assessment & Plan (08/04/2024 4:24 PM EST): I advised to log BP at home, take medications every day and low Na diet RTC 2 weeks with nurse if BP is persistently not at goal <140/90mmhg increase losartan dose to 50mg daily Assessment & Plan (12/24/2023 9:58 AM EDT): -I advise not to miss any dose of his medications - Aerobic exercise to reduce BP. Initial goal of 30 min walk 3-5x/week. Increase as tolerated. - low-sodium diet (goal: <2g/day) and heart healthy diet such as DASH to reduce BP and prevent ASCVD. - Home BP monitoring 1-2 x day with goal of <140/90. - Seek immediate medical attention for chest pain, palpitations, SOB, syncope, or sudden changes in mental status. - Do not change or discontinue current prescriptions without first consulting health care provider Assessment & Plan (09/25/2023 1:40 PM EST): Maintenance: BMP: up to date Lipid Panel: up to date ASCVD Risk: on atorvastatin 20mg daily EKG: Obtain baseline at f/u - Aerobic exercise to reduce BP. Initial goal of 30 min walk 3-5x/week. Increase as tolerated. - low-sodium diet (goal: <2g/day) and heart healthy diet such as DASH to reduce BP and prevent ASCVD. - Home BP monitoring 1-2 x day with goal of <140/90. - Seek immediate medical attention for chest pain, palpitations, SOB, syncope, or sudden changes in mental status. - Do not change or discontinue current prescriptions without first consulting health care provider Assessment & Plan (12/10/2022 10:40 AM EDT): Maintenance: BMP: ordered today Lipid Panel: ordered today ASCVD Risk: Calculate pending updated labs - Aerobic exercise to reduce BP. Initial goal of 30 min walk 3-5x/week. Increase as tolerated. - low-sodium diet (goal: <2g/day) and heart healthy diet such as DASH to reduce BP and prevent ASCVD. - Home BP monitoring 1-2 x day with goal of <140/90. - Seek immediate medical attention for chest pain, palpitations, SOB, syncope, or sudden changes in mental status. - Do not change or discontinue current prescriptions without first consulting health care provider Obesity 12/10/2022 Prediabetes 12/10/2022 Type 2 diabetes mellitus 12/10/2022 Assessment & Plan (10/23/2024 2:35 PM EDT): Diabetes is: controlled - Lab Results Component Value Date HGBA1C 6.7 (A) 10/23/2024 HGBA1C 6.5 (A) 08/04/2024 HGBA1C 6.8 (A) 09/25/2023 - Lab Results Component Value Date MICROALBUR 1,262.0 08/20/2024 CREATININE 1.22 08/20/2024 -Changes: none - Diabetic eye exam:up to date - Diabetic foot exam:referral done - Continue lifestyle modifications - Continue current medications - Follow up: 3 months Assessment & Plan (08/04/2024 4:25 PM EST): Diabetes is: controlled - Lab Results Component Value Date HGBA1C 6.5 (A) 08/04/2024 HGBA1C 6.8 (A) 09/25/2023 HGBA1C 6.7 (A) 12/10/2022 - Lab Results Component Value Date CREATININE 1.22 01/03/2023 -Changes: none - Diabetic eye exam:up to date - Diabetic foot exam:pending - Continue lifestyle modifications - Continue current medications - Follow up: 3 months Assessment & Plan (12/24/2023 9:59 AM EDT): Diabetes is: almost at goal - Lab Results Component Value Date HGBA1C 6.8 (A) 09/25/2023 HGBA1C 6.7 (A) 12/10/2022 HGBA1C 6.4 (H) 09/20/2020 - Lab Results Component Value Date CREATININE 1.22 01/03/2023 -Changes: none - Diabetic eye exam:up to date - Diabetic foot exam:up to date - Continue lifestyle modifications - Continue current medications - Follow up: 3 months Assessment & Plan (09/25/2023 1:43 PM EST): Diabetes is: almost at goal - Lab Results Component Value Date HGBA1C 6.8 (A) 09/25/2023 HGBA1C 6.7 (A) 12/10/2022 HGBA1C 6.4 (H) 09/20/2020 - Lab Results Component Value Date CREATININE 1.22 01/03/2023 -Changes: none today - Diabetic eye exam: up to date - Diabetic foot exam:Patient refer today - Continue lifestyle modifications - Continue current medications - Follow up: 3 months Assessment & Plan (12/10/2022 10:40 AM EDT): - Lab Results Component Value Date HGBA1C 6.4 (H) 09/20/2020 -No results found for: GLUF, MICROALBUR, LDLCALC, CREATININE - - Diabetic eye exam: up to date - Diabetic foot exam: up to date - Continue lifestyle modifications - Continue current medications Skin tag 12/10/2022 Acute idiopathic gout of right knee 12/10/2022 Colon cancer screening 12/10/2022 Other male erectile dysfunction 12/10/2022 Encounters Date Type Department Care Team Description 11/18/[address] [address] Juana Johnson MD Primary insomnia 10/30/[address] [address] Juana Johnson MD Results 10/30/2024 Orders Only [address] [address] Juana Johnson MD Low testosterone in male (Primary Dx) 10/23/2024 11:00 AM EDT Office Visit [address] [address] Juana Johnson MD Essential hypertension (Primary Dx); Type 2 diabetes mellitus without complication, without long-term current use of insulin ([facility]); Other fatigue; Flu-like symptoms 10/23/2024 Orders Only [address] [address] Juana Johnson MD 10/23/2024 Travel 10/13/2024 Patient Outreach [address] [address] Juana Johnson MD Pre-visit Planning ((Unable to reach for PVP screening or LVM)) from Last 3 Months Immunizations Immunization Administration Dates Next Due Influenza injectable quadrivalent preservative f ree 06/25/2022 Influenza, seasonal, injectable, preservative fr ee 08/04/2024 Pfizer Covid-19 Vaccine 12+ 09/25/2023 Pneumococcal Conjugate PCV 20 12/24/2023 Tdap 06/25/2022 Family History Medical History Relation Name Comments Heart attack Father No Known Problems Maternal Grandfather Alzheimer's disease Mother Hypertension Sister Relation Name Status Comments Father Maternal Grandfather Mother Sister Social History Tobacco Use Types Packs/Day Years Used Date Smoking Tobacco: Never Passive Smoke Exposure: Never Smokeless Tobacco: Never Tobacco Cessation:Counseling Given: Not Answered Alcohol Use Standard Drinks/Week Comments Never 0 (1 standard drink = 0.6 oz pur e alcohol) Alcohol Answer Date Recorded Frequency of Alcohol Consumption Not on file 12/24/2023 Average Number of Drinks Not on file 024 Frequency of Binge Drinking Not on file 11/27 Score 0 12/24/2023 Depression Answer Date Recorded Patient Health Questionnaire-9 Score 0 08/04/2024 Patient Health Questionnaire-9 Score 0 08/04/2024 Last PHQ-9: Questionnaire Data Not on file 0 08/04/2024 Housing Stability Answer Date Recorded What is your housing situation today? I have louise polo 12/24/[address] you li ve. Do you have problems with any of the following? None of the above 12/24/2023 Food Insecurity Answer Date Recorded Within the past 12 months, y ou worried that your food would run out before you got money to buy more: Never True 12/24/2023 Within the past 12 months,th e food you bought just didn't last and you didn't have enough money to get more: Never True Transportation Answer Date Recorded In the past 12 months, has l ack of transportation kept you from medical appts, meetings, work or from getting things needed for daily living? No 12/24/2023 Utilities Answer Date Recorded In the past 12 months, has t he electric, gas, oil or water company threatened to shut off services in your home? No 12/24/2023 Depression Answer Date Recorded Patient Health Questionnaire-2 Score 0 08/04/2024 Sex and Gender Information Value Date Recorded Sex Assigned at Male 05/28/2022 10:34 AM EDT Legal Sex Male 10:34 AM EDT Gender Identity Male 05/28/2022 10:34 AM EDT Sexual Orientation Straight 05/28/2022 10 :34 AM EDT Last Filed Vital Signs Vital Sign Reading Time Taken Comments Blood Pressure 142/70 10/23/2024 11:20 AM EDT Pulse 88 10/23/2024 11:20 AM EDT Temperature 36.9 ??C (98.4 ??F) 10/23/2024 11:20 AM E DT Respiratory Rate 21 10/23/2024 11:20 AM EDT Oxygen Saturation 99% 10/23/2024 11:20 AM EDT Inhaled Oxygen Concentration - - Weight 112 kg (246 lb) 10/23/2024 11:20 AM EDT Height 177.8 cm (5' 10 ) 10/23/2024 11:20 AM EDT Body Mass Index 35.3 10/23/2024 11:20 AM EDT Plan of Treatment Upcoming Encounters Date Type Department Care Team (Late st Contact Info) Description 04/26/2025 10:00 AM EDT Office Visit [facility] [address], [place] [phone] Mauricio, Prema, OD [address] [place] [address] Health Maintenance Due Date Last Done Comments CT Colonography 1973 Colonoscopy 1973 FIT 1973 FOBT 1973 Sigmoidoscopy 1973 Alcohol/Substance Use Screening 1985 Family Planning (PISQ) 1988 Hepatitis B Vaccines (1 of 3 - 19+ 3-dose series) 1992 Zoster Vaccines (1 of 2) 2023 Diabetes: Foot Exam 12/11/2023 12/10/2022, COVID-19 Vaccine ( season) 2024 09/25/2023, 07/13/2021, 11/28/2020, Additional history exists SDOH Screening 12/23/2024 12/24/2023 Diabetes: Hemoglobin A1C 04/25/20252 025, 08/04/2024, 09/25/2023, Additional history exists Depression Screening 08/04/2025 08/04/2024, 08/04/19 Diabetes: Urine Protein Screening 08/20/2025 08/20/2024, 01/03/2023 Lipid Panel 08/20/2025 08/20/2024, 06/0 02/2023, 09/20/2020 Disability Screening 10/23/2025 10/23/2024 Tobacco Screening 10/23/2025 10/23/2024 Eye Exam 11/17/2025 11/18/2023, 10/28, 11/18/2023, Additional history exists Colorectal Cancer Screening 11/05/2026 FIT DNA/Cologuard 11/05/2026 11/06/2023 DTaP/Tdap/Td Vaccines (2 - Td or Tdap) 06/25/2032 06/25/2022 RSV Patients and Patients Aged 60 years or older (1 - 1-dose 75+ series) 2048 HIV Screening Completed 07/21/2019 Hepatitis C Screening Completed 07/21/2019 Pneumococcal Vaccine: 50+ Years Completed 12/24/2023 Influenza Vaccine Completed 08/04/2024, 06/25/2022 HIB Vaccines Aged Out No longer eligi ble based on patient's age to complete this topic HPV Vaccines Aged Out No longer eligi ble based on patient's age to complete this topic Hepatitis A Vaccines Aged Out No long er eligible based on patient's age to complete this topic IPV Vaccines Aged Out No longer eligi ble based on patient's age to complete this topic Meningococcal B Vaccine Aged Out No l onger eligible based on patient's age to complete this topic Meningococcal Vaccine Aged Out No ahsan araseli eligible based on patient's age to complete this topic RSV under 20 months Aged Out No longe r eligible based on patient's age to complete this topic Rotavirus Vaccines Aged Out No longer eligible based on patient's age to complete this topic Procedures Procedure Name Priority Date/Time Associated Diagnosis Comments BASIC METABOLIC PANEL Routine 10/23/2024 1:08 PM EDT TESTOSTERONE, TOTAL, MALES (ADULT), IA Routine 10/23/2024 1:08 PM EDT Other fatigue CBC WITH AUTO DIFFERENTIAL Routine 10/23/2024 1:08 PM EDT Other fatigue TSH W/REFLEX TO FT4 Routine 10/23/2024 1 :08 PM EDT Other fatigue POCT INFLUENZA B (ID NOW RAPID MOLECULAR) Routine 10/23/2024 11:47 AM EDT Other fatigue POCT INFLUENZA A (ID NOW RAPID MOLECULAR) Routine 10/23/2024 11:47 AM EDT Other fatigue POCT RAPID COVID ANTIGEN Routine 10/23/2024 11:43 AM EDT Other fatigue POCT GLYCATED HEMOGLOBIN, TOTAL Routine 10/23/2024 11:25 AM EDT Type 2 diabetes mellitus without complication, without long-term current use of insulin (CMS/HCC) POCT GLUCOSE Routine 10/23/2024 11:24 AM EDT Type 2 diabetes mellitus without complication, without long-term current use of insulin (CMS/HCC) ALBUMIN, RANDOM URINE W/CREATININE Routine 08/20/2024 9:52 AM EST Type 2 diabetes mellitus without complication, without long-term current use of insulin (CMS/HCC) LIPID PANEL, STANDARD Routine 08/20/2024 9:52 AM EST Type 2 diabetes mellitus without complication, without long-term current use of insulin (CMS/HCC) LAB COLOGUARD?? COLON CANCER SCREEN Routine 11/06/2023 10:00 AM EDT Colon cancer screening ZZZ HISTORICAL HEPATITIS C ANTIBODY RFLX Routine 07/21/2019 9:00 AM EST ZZZ HISTORICAL HIV AB/AG Routine 07/21/2019 9:00 AM EST from Last 3 Months or Most Recently Relevant to Health Maintenance Results * TSH W/Reflex to FT4 (10/23/2024 1:08 PM EDT) TSH reflex Free T4 1.11 0.32 - 4.0 uIU/mL [facility] Blood Venous blood specimen / Unknown 10/23/2024 1:08 PM EDT 10/23/2024 4:18 PM EDT us Juana Adkins MD LAB BLOOD ORDERABLES Final Result [facility] [address], [place] [phone] * (ABNORMAL) CBC auto differential (10/23/2024 1:08 PM EDT) White Blood Count 9.5 4.8 - 10.8 X10*3/uL [facility] Red Blood Count 5.21 4.60 - 5.80 X10*6/uL [facility] Hemoglobin 14.1 14.0 - 18.0 g/dl [facility] Hematocrit 43.8 42.0 - 52.0 % [facility] Mean Corpuscular Volume 84.1 80.0 - 98.0 fL [facility] Mean Corpuscular Hemoglobin 27.1 27.0 - 33.0 pg [facility] Mean Corpuscular HGB Conc 32.2 31.0 - 36.0 g/dl [facility] Red Cell Distribution Width 15.8 11.0 - 16.0 % [facility] Platelet Count 197 160 - 400 X10*3/uL [facility] Mean Platelet Volume 11.4 9.4 - 12.4 fL [facility] Neutrophils Percent Auto 68.6 45 - 73 % [facility] Imm Gran Pct Auto 0.4 0.0 - 0.4 % [facility] Lymphocytes Percent Auto 16.9(L) 20 - 40 % [facility] Monocytes Percent Auto 8.9 2 - 11 % [facility] Eosinophils Percent Auto 4.7(H) 0 - 4 % [facility] Basophils Percent Auto 0.5 0 - 2 % [facility] NRBC Pct Auto 0.0 0.0 - 0.2 /100WBC [facility] Neutrophils Absolute Auto 6.5 2.0 - 8.3 x10*3/uL [facility] Imm Gran Abs Auto 0.04(H) 0.00 - 0.03 X10*3/uL [facility] Lymphocytes Absolute Auto 1.6 1.2 - 4.9 X10*3/uL [facility] Monocytes Absolute Auto 0.8 0.1 - 1.2 X10*3/uL [facility] Eosinophils Absolute Auto 0.4 0.0 - 0.4 X10*3/uL [facility] Basophils Absolute Auto 0.1 0.0 - 0.2 X10*3/uL [facility] NRBC Abs Auto 0.000 0.0 - 0.012 X10*3/uL [facility] Blood Venous blood specimen / Unknown 10/23/2024 1:08 PM EDT 10/23/2024 4:18 PM EDT Juana Adkins MD LAB BLOOD ORDERABLES Final Result [facility] [address] [place] [address] [phone] * (ABNORMAL) Testosterone, Total, males (Adult), IA (10/23/2024 1:08 PM EDT) Testosterone, Total 237(A) 250 - 1100 ng/dL [facility] Comment:For additional infor donna, please refer [email or web address](This link is being provided for informational/educational purposes only.)This test was developed and its analytical performancecharacteristics have been determined by [employer] [place], [place]. It hasnot been cleared or approved by the U.S. Food and DrugAdministration. This assay has been validated pursuantto the CLIA regulations and is used for clinicalpurposes.THIS TEST WAS PERFORMED AT:[id number] [place] [address]LVFERWQARISTIDES MARADIAGA MD,PHD Blood Venous blood specimen / Unknown 10/23/2024 1:08 PM EDT 10/23/2024 4:18 PM EDT us Juana Adkins MD LAB BLOOD ORDERABLES Final Result Performing Organization Address [facility] Co de Phone Number [facility] [address] [place] [address] [phone] * (ABNORMAL) Basic Metabolic Panel (10/23/2024 1:08 PM EDT) Pathologist [facility] Sodium 141 135 - 145 mmol/L [facility] Potassium 3.8 3.3 - 5.1 mmol/L [facility] Chloride 106 96 - 108 mmol/L [facility] Carbon Dioxide 26 22 - 29 mmol/L [facility] Anion Gap 13 12 - 20 [facility] Urea Nitrogen (BUN) 17(H) 9 - 16 mg/dL [facility] Creatinine, Serum 1.19 0.5 - 1.4 mg/dL [facility] Estimated Glomerular Filt Rate >60 [facility] Comment:Chronic Kidney Disea se: Estimated GFR < 60 mL/min/1.17y5Bictan Kidney Disease: Estimated GFR < 15 mL/min/1.73m2 Glucose 108 60 - 115 mg/dL [facility] Calcium 9.5 8.4 - 10.2 mg/dL [facility] 10/23/2024 1:08 PM EDT 10/23/2024 4:18 PM EDT us Juana Adkins MD LAB BLOOD ORDERABLES Final Result Performing Organization Address [facility] Co de Phone Number [facility] [address] [place] [address] [phone] * POCT Rapid Influenza B SALDANA ID NOW (10/23/2024 11:47 AM EDT) Pathologist [facility] Influenza B Negative Negative, Indeterminate [facility] QC Media Lot # [id number] [facility] Lot# Expiration Date [id number] [facility] Swab 10/23/2024 11:4 7 AM EDT Juana Adkins MD POINT OF CARE TEST EN TER/EDIT ORDERABLES Final Result Performing Organization Address City/[facility]/ZIP Co de Phone Number [facility] [address] [place] [phone] * POCT Rapid Influenza A SALDANA ID NOW (10/23/2024 11:47 AM EDT) Influenza A Negative Negative, Indeterminate [facility] QC Media Lot # [id number] [facility] Lot# Expiration Date [facility] Swab 10/23/2024 11:4 7 AM EDT Juana Adkins MD POINT OF CARE TEST EN TER/EDIT ORDERABLES Final Result Performing Organization Address City/[facility] Co de Phone Number [facility] [address] [place] [phone] * POCT Rapid Covid-19 BinaxNOW (10/23/2024 11:43 AM EDT) Pathologist [facility] Rapid COVID Ag Negative QC Media Lot # [id number] Lot# Expiration Date 026 Swab 10/23/2024 11:4 3 AM EDT Juana Adkins MD POINT OF CARE TEST EN TER/EDIT ORDERABLES Final Result * (ABNORMAL) POCT HGB A1C (10/23/2024 11:25 AM EDT) Hemoglobin A1C 6.7(A) 4.0 - 6.0 % QC Media Lot # [id number] Lot# Expiration Date ,026 Blood 10/23/2024 11:2 5 AM EDT Juana Adkins MD POINT OF CARE TEST EN TER/EDIT ORDERABLES Final Result * POCT Glucose (10/23/2024 11:24 AM EDT) Glucose Blood, POC 119 60 - 200 mg/dL QC Media Lot # [id number] Lot# Expiration Date Blood Capillary blood specimen / Unknown 10/23/2024 11:24 AM EDT Juana Adkins MD POINT OF CARE TEST EN TER/EDIT ORDERABLES Final Result * (ABNORMAL) Albumin, Random Urine W/Creatinine (08/20/2024 9:52 AM EST) Creatinine, Urine 364.36 mg/dL [facility] Microalbumin Urine 1,262.0 mg/L [facility] Microalbum Creatinine Ratio Ur 346.3(H) <30 ug/mg cr [facility] Comment:Albumin/Creatinine R at Reference Ranges: Normal: < 30 ug/mg creatinine Microalbuminuria: 30 - 300 ug/mg creatinineClinical Albuminuria: > 300 ug/mg creatinine Urine (Urine, Random) 08/20/2024 9:52 AM EST 08/20/2024 11:27 AM EST us Juana Adkins MD LAB URINE ORDERABLES Final Result [facility] [address] [place] [address] [phone] * (ABNORMAL) Lipid Panel, Standard (08/20/2024 9:52 AM EST) Triglycerides 251(H) <150 mg/dL [facility] Comment:Desirable Triglyceri de: less than 150 mg/dLBorderline High Triglyceride 150-199 mg/dLHigh Triglyceride: 200-499 mg/dLVery High Triglyceride: greater than or equal to 5OO mg/dL Cholesterol 152 <200 mg/dL [facility] Comment:Desirable Cholestero l: less than 200 mg/dLBorderline High Cholesterol: 200-239 mg/dLHigh Cholesterol: greater than 239 mg/dL LDL Cholesterol Calculated 61 <100 mg/dL [facility] Comment:Desirable LDL: less than 100 mg/dLNear Optimal/Above Optimal LDL: 110- 129 mg/dLBorderline High LDL: 130-159 mg/dLHigh LDL: 160-189 mg/dLVery High LDL: greater than or equal to 190 mg/dL HDL Cholesterol 41 >40 mg/dL [facility] Comment:Desirable HDL: great er than 40 mg/dL Note: This HDL assay may give artificially low results in patients with liver disease. Blood Venous blood specimen / Unknown 08/20/2024 9:52 AM EST 08/20/2024 11:20 AM EST Juana Adkins MD LAB BLOOD ORDERABLES Final Result [facility] [address] [place] [phone] * Cologuard?? colon cancer screening (11/06/2023 10:00 AM EDT) Cologuard Result Negative Negative 11/13/19 8:34 AM EDT [employer] [facility] (CLIA #:[id number]) Comment: NEGATIVE TEST RESULT. A negative Cologuard result indicates a low likelihood that a colorectal cancer (CRC) or advanced adenoma (adenomatous polyps with more advanced pre-malignant features) ??is present. The chance that a person with a negative Cologuard test has a colorectal cancer is less than 1 in 1500 (negative predictive value >99.9%) or has an ??advanced adenoma is less than ??5.3% (negative predictive value 94.7%). These data are based on a prospective cross-sectional study of 10,000 individuals at average risk for colorectal cancer who were screened with both Cologuard and colonoscopy. (Tania Phan al, N Engl J Med 2014;370(14):1286- 1297) The normal value (reference range) for this assay is negative. COLOGUARD RE-SCREENING RECOMMENDATION: Periodic colorectal cancer screening is an important part of preventive healthcare for asymptomatic individuals at average risk for colorectal cancer. ??Following a negative Cologuard result, the [place] [employer] and U.S. Multi-Society Task Force screening guidelines recommend a Cologuard re-screening interval of 3 years. References: [place] [employer] Guideline for Colorectal Cancer Screening: https://www.cancer.org/cancer/ggdgh-yzggsz-yifvam/pkpevpwyu-gdlbhteup-tmudewp/ac s-rec ommendations.html.; Del DK, Patience CAVAZOS, Matthew ChavesK, Colorectal Cancer Screening: Recommendations for Physicians and Patients from the U.S. Multi-Society Task Force on Colorectal Cancer Screening , Am J Gastroenterology 2017; 112:0389-4002. TEST DESCRIPTION: Composite algorithmic analysis of stool DNA-biomarkers with hemoglobin immunoassay. ?? Quantitative values of individual biomarkers are not reportable and are not associated with individual biomarker result reference ranges. Cologuard is intended for colorectal cancer screening of adults of either sex, 45 years or older, who are at average-risk for colorectal cancer (CRC). Cologuard has been approved for use by the U.S. FDA. The performance of Cologuard was established in a cross sectional study of average-risk adults aged 50-84. Cologuard performance in patients ages 45 to 49 years was estimated by sub-group analysis of near-age groups. Colonoscopies performed for a positive result may find as the most clinically significant lesion: colorectal cancer [4.0%], advanced adenoma (including sessile serrated polyps greater than or equal to 1cm diameter) [20%] or non- advanced adenoma [31%]; or no colorectal neoplasia [45%]. These estimates are derived from a prospective cross-sectional screening study of 10,000 individuals at average risk for colorectal cancer who were screened with both Cologuard and colonoscopy. (Tania Morales et al, N Engl J Med 2014;370(14):8854-2763.) Cologuard may produce a false negative or false positive result (no colorectal cancer or precancerous polyp present at colonoscopy follow up). A negative Cologuard test result does not guarantee the absence of CRC or advanced adenoma (pre-cancer). The current Cologuard screening interval is every 3 years. ([place] [employer] and U.S. Multi-Society Task Force). Cologuard performance data in a 10,000 patient pivotal study using colonoscopy as the reference method can be accessed at the following location: www.[employer].Lezu365/results. Additional description of the Cologuard test process, warnings and precautions can be found at www.cologuard.com. Stool specimen (specimen) 11/06/2023 10:00 AM EDT 11/07/2023 2:00 PM EDT us Juana Adkins MD LAB MOLECULAR DIAGNOS TICS ORDERABLES Final Result [facility] [facility] (CLIA #:[id number]) [address] [place] [address], * HEPATITIS C ANTIBODY RFLX (07/21/2019 9:00 AM EST) Pathologist [facility] HEPATITIS C ANTIBODY NONREACTIVE NONREACTIVE [facility] Comment: Antibodies to HCV not detected; does not exclude early acute HCV infection. 07/21/2019 9:00 AM EST us Juana Adkins MD HISTORICAL/NON ORDERA BLE LABS Final Result Performing Organization Address [facility] Co de Phone Number [facility] [address] * HIV AB/AG (07/21/2019 9:00 AM EST) Pathologist [facility] HIV AG/AB NONREACTIVE [facility] Comment: HIV-1 p24 Ag and/or HIV-1/HIV-2 Ab not detected. ?? A test result that is nonreactive does not exclude the possibility of exposure to or infection with HIV-1 and/or HIV-2. Nonreactive results in this assay for individuals with prior exposure to HIV-1 and/or HIV-2 may be due to antigen and antibody levels that are below the limit of detection of this assay. ?? The [facility] HIV Ag/Ab Combo assay result and supplemental assay results should be interpreted in conjunction with the patient's clinical presentation, history and other laboratory results. ??If the results are inconsistent with clinical evidence, additional testing is suggested to confirm the result. 07/21/2019 9:00 AM EST us Juana Adkins MD HISTORICAL/NON ORDERA BLE LABS Final Result [facility] [address] [place] [address], from Last 3 Months or Most Recently Relevant to Health Maintenance Insurance [facility] [address] [place] [id number] Care Teams Parent Aide Relationship Specialty Start Date End Date Juana Johnson MD [address] [place] [address] PCP - General Family Medicine 08/12/18
== END 2025-01-07 16:23 | disposition home or self-care (01) ==
LOC: HO.HUSH 14:46
PROVIDERS: PCP Internal Medicine; Visit Provider Nurse Practitioner Family
DX: Z13.9 Encounter for screening, unspecified (principal)

== ENCOUNTER 2025-03-03 14:01 | Emergency (ER) | payer OTHER, SELFPAY ==
--- NOTE | ~2025-03-03 | XR_ITS ---
EXAMINATION: XR FINGERS LEFT HISTORY: avulsion injury L middle finger COMPARISON: There are no prior studies available for comparison. FINDINGS: Three views of the left middle finger are submitted. Osseous mineralization is normal. There is a fracture of the distal tuft which demonstrates corticated margins and appears chronic. No definite acute fracture is seen. There is no dislocation. The patient is status post internal fixation of the distal radius. There is degenerative change of the proximal carpal compartment. There is flattening of the 3rd metacarpal.. The soft tissues are unremarkable. XR/XR finger LT min 2V IMPRESSION: Fracture of the distal tuft of the middle finger appears chronic. Electronically signed by: Soy Marroquin MD 03/03/2025 02:47 PM EDT
[2025-03-03 14:09] VITALS: BP 151/92; PULSE 98; RESP 18; TEMP 36.6; O2SAT 98; BMI 34.4
--- NOTE | 2025-03-03 14:11 | ED_ITS ---
HPI - General Adult General Chief complaint: General Medical Stated complaint: Grant missing L hand middle finger, bleeding Time Seen by Provider: 03/03/25 15:11 Source: patient Mode of arrival: ambulatory Limitations: no limitations History of Present Illness ED Provider: Bi Santiago PA-C HPI narrative: 49-year-old right-hand dominant male with medical history of diabetes presents to the ED today after crushing his left 3rd digit between car Oracio and concrete when trying to work on his car. Patient is UTD on tetanus. Related Data Home Medications ?Medication ?Instructions ?Recorded ?Confirmed losartan 100 mg tablet 100 mg PO DAILY 08/29/2008/18 amlodipine 5 mg tablet 5 mg PO DAILY 01/07/25 atorvastatin 20 mg tablet 20 mg PO DAILY 01/07/25 colchicine 0.6 mg tablet mg PO 01/07/25 hydrochlorothiazide 50 mg tablet 50 mg PO DAILY metformin 500 mg tablet,extended 500 mg PO DAILY 01/07 release 24 hr Previous Rx's ?Medication ?Instructions ?Recorded cephalexin 500 mg capsule 500 mg PO BID 7 days #14 cap s 03/03/25 Allergies Allergy/AdvReac Type Severity Reaction Status Date / Time No Known Allergies Allergy Verified 03/03/25 14:11 Review of Systems 2 Review of Systems: CONST: Negative for fever, body aches and chills. HENT: Negative for neck pain/stiffness, headache, congestion, sore throat, swelling. EYES: Negative for discharge/pain or vision changes. RESP: Negative for cough/hemoptysis and shortness of breath. CV: Negative chest pain, difficulty breathing, palpitations. ABD: Negative pain, nausea, vomiting. : Negative increase frequency, dysuria, blood in urine or stool. MUSC: Negative for muscle aches, edema. POS pain/bleeding of L 3rd digit SKIN: Negative rash, lesions/sores. NEURO: Negative headache, dizziness, weakness. Yes all other systems are reviewed and are negative PMFSH Past Medical History Attestation statement: The following information was validated with the patient. Source: old records reviewed and nursing notes reviewed Medical History Hypertension Knee arthropathy Anemia Social History Social History Household Members: Spouse and Children Alcohol intake: never Advance Directives: No Advance Directives Information Provided: Yes Do you have a plan to hurt others: No Plan Current occupational status: unemployed Physical Exam ED Vital Signs: Vital Signs - 24 hr 03/03/25 14:09 Temperature 98 F Pulse Rate 98 Respiratory Rate 18 Blood Pressure 151/92 H Pulse Oximetry 98 BMI result Body Mass Index 34.4 GENERAL APPEARANCE: ?AxOx4, generally well-appearing, no acute distress. HEENT: ?NC, AT. MMM. EOMI, clear conjunctiva, oropharynx clear. NECK: ?Supple without lymphadenopathy.? No stiffness or restricted ROM. HEART:? Normal rate and regular rhythm, normal S1/S1, no m/r/g LUNGS:? CTAB, moving air well. No crackles or wheezes are heard. ABDOMEN: ?Soft, nontender, nondistended with good bowel sounds heard. BACK: No CVAT, no obvious deformity. EXTREMITIES: ?Without cyanosis, clubbing or edema. SEE PHOTO OF L hand 3rd digit. Third digit with full ROM of MCP, PIP, DIP, with SILT, no TTP over tendons. NEUROLOGICAL: ?Grossly nonfocal. Alert and oriented, moving all 4 extremities. Observed to ambulate with normal gait. Skin: ?Warm and dry without any rash. Course Course Course Narrative: This is a Rapid Medical Examination (RME) performed by Jose Juan Baker PA-C in triage. Full HPI, ROS, assessment and treatment plan per primary provider in the Main ED. Hx: 49 yo australian speaking M, hx DM, right hand dominant, here for eval of L middle finger injury occurring [employer] when he was working on a car and a oracio failed, crushing the finger. tdap UTD. PE/vitals: avulsion injury to distal tip of L finger, no nail involvement. FROM intact to digit. Plan: xrs Medical Decision Making Medical Decision Making MDM Narrative: 49-year-old right-hand dominant male with medical history of diabetes presents to the ED today after crushing his left 3rd digit between car Oracio and concrete when trying to work on his car. Patient is UTD on tetanus. VSS, left hand 3rd digit with avulsion injury, tuft fracture of the distal phalanx, scant bleeding in triage. Third digit with full ROM of MCP, PIP, DIP, no TTP over or ventral or dorsal tendons, compartments soft. XR left 3rd digit reveals close tuft fracture of the distal 3rd phalanx. I reached out to orthopedic PA Nelsy Melo who recommended irrigation, Xeroform dressing, nonstick bandage and wrapping finger with follow up outpatient in office with Dr. Han. Patient will be prescribed 7 day course of Keflex for prophylactic coverage. I counseled patient on care of this wound including keeping the finger wrap for 24 hours, not submerging in water, refrain from exposure to fresh bodies of water, and daily bandage dressing changes until follow up with Dr. Han. Differential Diagnosis Differential Diagnoses: The differential diagnosis associated with the presentation includes Avulsion of fingertip Fracture of finger Compartment syndrome Foreign body Admission/Observation Consideration of admission/observation: Escalation of care including admission/observation considered Lab Data MDM Lab Attestation statement: I reviewed the patient's lab results. Independent Interpretation I performed an independent interpretation of an: Plain X-Ray Interpretation: I personally interpreted the x-ray of the left hand 3rd digit, which reveals a fracture of the distal phalanx. I agree with the radiologist's interpretation. Radiology Impression Discussion of test interpretation with radiology: I have reviewed the radiologist's reading. Radiologist Impression: FINDINGS: Three views of the left middle finger are submitted. Osseous mineralization is normal. There is a fracture of the distal tuft which demonstrates corticated margins and appears chronic. No definite acute fracture is seen. There is no dislocation. The patient is status post internal fixation of the distal radius. There is degenerative change of the proximal carpal compartment. There is flattening of the 3rd metacarpal.. The soft tissues are unremarkable. XR/XR finger LT min 2V IMPRESSION: Fracture of the distal tuft of the middle finger appears chronic. Electronically signed by: Soy Marroquin MD 03/03/2025 02:47 PM EDT RP Dictated By: Soy Marroquin MD Signed By: <Electronically signed by Soy Marroquin MD in OV> 03/03/25 [id number] External Record Review External record reviewed: Inpatient record, Office record and Outpatient record Chronic Conditions Patient?s care impacted by: Diabetes Discharge Plan Discharge Clinical Impression: Avulsion of finger tip, Closed fracture of tuft of distal phalanx of finger Patient Disposition: Home, Self-Care Instructions: Finger Fracture (ED), Wound Healing and Your Diet (ED), Skin Avulsion (ED), Acute Wounds (ED) Additional Instructions: You were evaluated in the ED today after crushing the left 3rd finger between car Oracio and concrete while working on your car. X-ray of the left 3rd finger revealed a tuft fracture of the finger tip. On physical exam there was not enough skin present to close the wound. Your wound was irrigated with sterile saline, a Vaseline dressing was placed on top and dressed with a nonstick dressing and bandage. You should keep this bandage in place for 24 hours and then change the dressing once a day. Do not submerge the finger under water, do not swim in any fresh [place] or pools while this is healing. For pain management you can take 500 milligrams of Tylenol, 400 milligrams ibuprofen every 6 hours. You can ice the finger for additional pain management. Your tetanus shot was up-to-date, you will be prescribed a 7 day course of an antibiotic called Keflex to prevent infection. I have placed a referral to the hand orthopedic Dr. for you to follow up with. You need to call their office, they will not call you. Please return to the emergency room if you experience worsening pain of the finger, increased bleeding of the finger, increased pus or drainage from the finger, fevers over 100.4 degrees, chest pain, shortness of breath or any other new/worsening/concerning symptom. Prescriptions: New cephalexin 500 mg capsule 500 mg PO BID 7 Days Qty: 14 0RF No Action losartan 100 mg tablet 100 mg PO DAILY metformin 500 mg tablet extended release 24 hr 500 mg PO DAILY colchicine 0.6 mg tablet PO hydrochlorothiazide 50 mg tablet 50 mg PO DAILY amlodipine 5 mg tablet 5 mg PO DAILY atorvastatin 20 mg tablet 20 mg PO DAILY Referrals: [facility] [Provider Group] Referral Note: avulsion injury to L 3rd digit, XR with tuft fracture Print Language: Portuguese
--- OUTSIDE RECORDS SUMMARY | 2025-03-03 15:59 | XMS_ITS | Clinical Summary ---
Author Organization [employer] Address [address] [facility] 7[address] [place] [address] Care Team Providers Care Global Account Manager Name Role Phone Juana Johnson MD Primary Care Provide r Allergies Active Allergy Reactions Criticality Noted Date Comments Aspirin Rash Low 09/11/2023 Medications acetaminophen (Tylenol 8 Hour) 650 MG ER tablet Take 2 tablets by mouth every 8 (eight) hours. 12/21/19 21 Active ciprofloxacin (Cipro) 250 MG tablet Take 1 tablet by mouth every 12 (twelve) hours. 07/21/20 19 Active cyclobenzaprine (Flexeril) 5 MG tablet Take 1 tablet by mouth every 8 (eight) hours. 06/17/20 20 Active dextran 70-hypromellose (dextran-70 & hydroxypropyl methylcellulose) 0.1-0.3 % ophthalmic solution 2 drops every 8hrs 02/03/20 21 Active ergocalciferol (Vitamin D-2) 1.25 MG (27395 UT) capsule take 1 capsule by oral route every week 01/03/20 22 Active ferrous sulfate 325 (65 Fe) MG tablet take 1 by Oral route every day in the AM 05/03/20 22 Active glucose blood (FREESTYLE LITE) test strip use twice to three times a day as directed 01/05/20 22 Active lidocaine (Lidoderm) 5 % patch Place 1 patch on the skin at bed time. 02/19/20 20 Active lidocaine (Xylocaine) 5 % ointment Apply topically at bed time. 02/19/20 20 Active olopatadine (Patanol) 0.1 % ophthalmic solution Administer 1 drop into affected eye(s) every 12 (twelve) hours. 02/03/20 21 Active predniSONE (Deltasone) 20 MG tablet Take 2 tablets by mouth at bed time. 06/01/20 20 Active cetirizine (ZyrTEC) 10 MG tablet Take 1 tablet (10 mg) by mouth in the morning. 30 tablet 07/30/19 24 Active atorvastatin (Lipitor) 20 MG tabletIndication s:Essential hypertension Take 1 tablet (20 mg) by mouth Once per day. 90 tablet 12/24/19 24 Active amLODIPine (Norvasc) 5 MG tabletIndication s:Essential hypertension Take 1 tablet (5 mg) by mouth Once per day. 90 tablet 12/24/19 24 Active Alcohol Swabs (Alcohol Prep) 70 % padsIndications: Type 2 diabetes mellitus without complication, without long-term current use of insulin (CMS/HCC) 1 each 2 times daily. 100 each 12/24/19 24 Active colchicine 0.6 MG tabletIndication s:Articular gout Take 1 tablet (0.6 mg) by mouth Once per day. 60 tablet 12/24/19 24 Active Lancets miscIndications: Type 2 diabetes mellitus without complication, without long-term current use of insulin (CMS/HCC) Use to test blood sugar 2 times daily 100 each 12/24/19 24 Active naproxen (Naprosyn) 500 MG tablet TAKE 1 TABLET BY MOUTH TWICE DAILY IN THE MORNING AND IN THE EVENING WITH MEALS 60 tablet 1 03/26/20 24 Active Blood Pressure Monitoring (Blood Pressure Cuff) miscIndications: Essential hypertension 1 each Once daily. 1 each 08/04/19 25 Active FREESTYLE LITE test stripIndications :Type 2 diabetes mellitus without complication, without long-term current use of insulin (CMS/HCC) Use to test blood sugar 1 times daily 100 each 08/04/19 25 2025 Active Lancets miscIndications: Type 2 diabetes mellitus without complication, without long-term current use of insulin (CMS/HCC) Use to test blood sugar 1 times daily 100 each 08/04/19 25 Active Alcohol Swabs 70 % padsIndications: Type 2 diabetes mellitus without complication, without long-term current use of insulin (CMS/HCC) Use to test blood sugar 1 times daily 100 each 08/04/19 25 Active Blood Glucose Monitoring Suppl (FreeStyle Norris Lite) w/Device kitIndications:T ype 2 diabetes mellitus without complication, without long-term current use of insulin (CMS/HCC) Use to test blood sugar 1 times daily 1 kit 08/04/19 Active losartan (Cozaar) 100 MG tablet Take 1 tablet (100 mg) by mouth in the morning. 90 tablet 3 08/20/19 25 2025 Active melatonin 5 MG tabletIndication s:Primary insomnia TAKE 1 TABLET BY MOUTH EVERY DAY AT BEDTIME 30 tablet 2 11/20/19 25 Active hydroCHLOROthiaz americo (HYDRODiuril) 50 MG tabletIndication s:Essential hypertension TAKE 1 TABLET BY MOUTH EVERY DAY 90 tablet 3 01/19/20 25 Active metFORMIN, OSM, (Fortamet) 500 MG 24 hr tabletIndication s:Type 2 diabetes mellitus without complication, without long-term current use of insulin (CMS/HCC) Take 1 tablet (500 mg) by mouth with evening meal. Do not crush, chew, or split. 30 tablet 11 02/27/20 25 2025 Active metFORMIN, OSM, (Fortamet) 500 MG 24 hr tabletIndication s:Type 2 diabetes mellitus without complication, without long-term current use of insulin (CMS/HCC) Take 1 tablet (500 mg) by mouth with evening meal. Do not crush, chew, or split. 30 tablet 11 12/24/19 24 2024 Discontinued(R eorder (will not trigger notification to Pharmacy)) Active Problems Problem Noted Date Diagnosed Date [...] Encounters Date Type Department Care Team Description 03/03/2025 Orders Only [facility] External Provider, [facility] 02/26/2025 Refill [facility] PED[facility] [address] [place] [address] Juana Johnson MD Type 2 diabetes mellitus without complication, without long-term current use of insulin ([facility]) 01/17/2025 Refill [facility] MEDICINE [address] [place] [address] Juana Johnson MD Essential hypertension 01/07/2025 Orders Only GENERIC EXTERNAL DATA DEPARTMENT Provider, Generic External Data from Last 3 Months Immunizations Immunization Administration [...] 88 10/23/2024 11:20 AM EDT Temperature 36.9 C (98.4 F) 10/23/2024 11:20 AM EDT Respiratory Rate 21 10/23/2024 11:20 AM EDT [...] Description 04/26/2025 10:00 AM EDT Office Visit [facility] OPTOMETRY [address] [place] [address] Prema Martínez, OD [address] [place] [address] Health Maintenance Due Date Last Done Comments CT Colonography 1975 Colonoscopy 1975 FIT 1975 FOBT 1975 Sigmoidoscopy 1975 Alcohol/Substance Use Screening 1985 Family Planning (PISQ) 1988 Hepatitis B Vaccines (1 of 3 - 19+ 3-dose series) 1992 Zoster Vaccines (1 of 2) 2023 Diabetes: Foot Exam 12/11/2023 12/10/2022, COVID-19 Vaccine ( season) 2024 09/25/2023, 07/13/2021, 11/28/2020, Additional history exists SDOH Screening 12/23/2024 12/24/2023 Influenza Vaccine (#1) 2025 08/04/2024, 2021 Diabetes: Hemoglobin A1C 04/25/2025 025, 08/04/2024, 09/25/2023, Additional history exists Depression [...] 07/21/2019 Pneumococcal Vaccine: 50+ Years Completed 12/24/2023 HIB Vaccines Aged Out No longer eligi [...] Procedure Name Priority Date/Time Associated Diagnosis Comments XR FINGERS 2+ VIEWS LEFT Routine 03/03/2025 2:30 PM EDT CYTOPATH-CELL ENHANCED Routine 01/07/2025 4:51 PM EDT POCT GLYCATED HEMOGLOBIN, TOTAL Routine 10/23/2024 11:25 [...] long-term current use of insulin (CMS/HCC) LAB COLOGUARD COLON CANCER SCREEN Routine 11/06/2023 10:00 AM EDT Colon cancer screening [facility] HISTORICAL HEPATITIS C ANTIBODY RFLX Routine 07/21/2019 9:00 AM EST [facility] HISTORICAL HIV AB/AG Routine 07/21/2019 9:00 AM EST from Last 3 Months or Most Recently Relevant to Health Maintenance Results * XR Fingers 2+ Views Left (03/03/2025 2:30 PM EDT) Anatomical Region Laterality Modality Upper Extremities, Fingers Left Radio graphic Imaging 03/03/2025 2:30 PM EDT Narrative 03/03/2025 2:50 PM EDT [address] [address] XRay Report Signed Patient: Elton Nation MR#: [id number] : 1975 Acct:[id number] Age/Sex: 49 / M ADM Date: 03/03/25 Loc: HO.ED Attending Dr: Ordering Physician: Emily Baker Date of Service: 03/03/25 Procedure(s): XR finger LT min 2V Accession Number(s): [id number] cc: Juana Johnson MD; Emily Baker EXAMINATION: XR FINGERS LEFT HISTORY: avulsion injury L middle finger COMPARISON: There are no prior studies available for comparison. FINDINGS: Three views of the left middle finger are submitted. Osseous mineralization is normal. There is a fracture of the distal tuft which demonstrates corticated margins and appears chronic. No definite acute fracture is seen. There is no dislocation. The patient is status post internal fixation of the distal radius. There is degenerative change of the proximal carpal compartment. There is flattening of the 3rd metacarpal.. The soft tissues are unremarkable. XR/XR finger LT min 2V IMPRESSION: Fracture of the distal tuft of the middle finger appears chronic. Electronically signed by: Soy Marroquin MD 03/03/2025 02:47 PM EDT Dictated By: Soy Marroquin MD Signed By: <Electronically signed by Soy Marroquin MD in OV> 03/03/25 1447 DD/ 1430 TD/TT: 03/03/25 1437 Spray Mixer: Procedure Note Donotuseinterpreter, Image - 03/03/[address] [address] XRay Report Signed Patient: Elton NationMR#: [id number] : 1975Acct:[id number] Age/Sex: 49 / MADM Date: 03/03/25 Loc: HO.ED Attending Dr: Ordering Physician: Emily Baker Date of Service: 03/03/25 Procedure(s): XR finger LT min 2V Accession Number(s): [id number] cc: Juana Johnson MD; Emily Baker EXAMINATION: XR FINGERS LEFT HISTORY: avulsion injury L middle finger COMPARISON: There are no prior studies available for comparison. FINDINGS: Three views of the left middle finger are submitted. Osseous mineralization is normal. There is a fracture of the distal tuft which demonstrates corticated margins and appears chronic. No definite acute fracture is seen. There is no dislocation. The patient is status post internal fixation of the distal radius. There is degenerative change of the proximal carpal compartment. There is flattening of the 3rd metacarpal.. The soft tissues are unremarkable. XR/XR finger LT min 2V IMPRESSION: Fracture of the distal tuft of the middle finger appears chronic. Electronically signed by: Soy Marroquin MD 03/03/2025 02:47 PM EDT Dictated By: Soy Marroquin MD Signed By: <Electronically signed by Soy Marroquin MD in OV> 03/03/25 1447 DD/ 1430 TD/TT: 03/03/25 1437 Spray Mixer: [facility] External Provider IMG XR PROCEDURES Final Result * Cytopath-cell enhanced (01/07/2025 4:51 PM EDT) 01/07/2025 4:51 PM EDT 01/08/2025 11:30 AM EDT [facility] - 01/11/2025 11:14 AM EDT ----- ------- Name: Elton Nation Age/Sex: 49/M : 1975 Unit#: [id number] Attend Dr: Bindu Jung [facility]- Re01/07/25 Status: DEP REF Location: [facility] Disch: ----- ------- SPEC : [id number] RECD: 01/08/25-1129 STATUS: ALISIA GHOSH NUM: [id number] JENIFER: 01/07/25 [facility] DR: Bindu Jung [facility]- ENTERED: 01/08/25-134 SP TYPE: Cytology OT DR: Juana Johnson MD ORDERED: Cyto-enhanced Diagnosis Urine, voided: Negative for high-grade urothelial malignancy. See comment: The cytologic prep is moderately cellular with squamous cells, benign urothelial cells and rare red blood cells. There is no evidence of high-grade urothelial malignancy. Clinical History Microscopic hematuria Material Received Urine Gross Description Received is 37 cc of bubble clear yellow fluid from which a ThinPrep slide is prepared. IHC S/NG Disclaimer NOTE: Unless otherwise stated, all tissue is formalin-fixed and paraffin-embedded. Some or all of the immunohistochemical tests reported herein may have been developed and their performance characteristics determined by [facility]. They have not been cleared or approved by the U.S. Food and Drug Administration (FDA). However, the FDA has determined that such clearance or approval is not necessary. This laboratory is certified under the Clinical Laboratory Improvement Amendments of 1988 (CLIA) as qualified to perform high complexity clinical laboratory testing. Copies To: Juana Johnson MD [address] [address] Bindu Jung [facility] [address] [place] [address] [address] [place], [place] [id number] [email or web address] CONTINUED ON NEXT PAGE ----- ------- Name: Elton Nation Age/Sex: 49/M : 1975 Unit#: [id number] Attend Dr: Bindu Jung [facility] Re01/07/25 Status: DEP REF Location: HO.LNP Disch: ----- ------- SPEC : [id number] RECD: 01/08/25-316 STATUS: ALISIA GHOSH NUM: [id number] JENIFER: 01/07/25-1650 [facility] DR: Bindu Jung [facility] ENTERED: 01/08/25-6319 SP TYPE: Cytology OTHR : Juana Johnson MD ORDERED: Cyto-enhanced ----- ------- Signed (signature on file) Иван Jimenez MD 01/11/25 1114 ----- ------- END OF REPORT Generic External Data Provider LAB CYTOLOGY ASHA PETERS Final Result [facility] [address] [place] [address] [phone] * (ABNORMAL) POCT HGB A1C (10/23/2024 11:25 AM EDT) Hemoglobin A1C 6.7(A) 4.0 - 6.0 % QC Media Lot # [id number] Lot# Expiration Date Blood 10/23/2024 11:2 5 AM EDT Juana Adkins MD POINT OF CARE TEST EN TER/EDIT ORDERABLES Final Result * (ABNORMAL) Albumin, Random Urine W/Creatinine (08/20/2024 9:52 AM EST) Creatinine, Urine 364.36 mg/dL [facility] Microalbumin Urine 1,262.0 mg/L H [facility] Microalbum Creatinine Ratio Ur 346.3(H) <30 ug/mg cr [facility] Comment:Albumin/Creatinine R stephanieio Reference Ranges: Normal: < 30 ug/mg creatinine Microalbuminuria: 30 - 300 ug/mg creatinineClinical Albuminuria: > 300 ug/mg creatinine Urine (Urine, Random) 08/20/2024 9:52 AM EST 08/20/2024 11:27 AM EST us Juana Adkins MD LAB URINE ORDERABLES Final Result Performing Organization Address City/[facility] Co de Phone Number [facility] [address] [place] [address] [phone] * (ABNORMAL) Lipid Panel, Standard (08/20/2024 9:52 AM EST) Triglycerides 251(H) <150 mg/dL [facility] Comment:Desirable Triglyceri de: less than 150 mg/dLBorderline High Triglyceride 150-199 mg/dLHigh Triglyceride: 200-499 mg/dLVery High Triglyceride: greater than or equal to 5OO mg/dL Cholesterol 152 <200 mg/dL [facility] Comment:Desirable Cholestero l: less than 200 mg/dLBorderline High Cholesterol: 200-239 mg/dLHigh Cholesterol: greater than 239 mg/dL LDL Cholesterol Calculated 61 <100 mg/dL [facility] Comment:Desirable LDL: less than 100 mg/dLNear Optimal/Above Optimal LDL: 110- 129 mg/dLBorderline High LDL: 130-159 mg/dLHigh LDL: 160-189 mg/dLVery High LDL: greater than or equal to 190 mg/dL HDL Cholesterol 41 >40 mg/dL [facility] Comment:Desirable HDL: great er than 40 mg/dL Note: This HDL assay may give artificially low results in patients with liver disease. Blood Venous blood specimen / Unknown 08/20/2024 9:52 AM EST 08/20/2024 11:20 AM EST us Juana Adkins MD LAB BLOOD ORDERABLES Final Result Performing Organization Address City/[facility]/ZIP Co de Phone Number [facility] [address] [place] [address] [phone] * Cologuard?? colon cancer screening (11/06/2023 10:00 AM EDT) Cologuard Result Negative Negative 11/13/19 24 8:34 AM EDT [employer] (CLIA #:[id number]) Comment: NEGATIVE TEST RESULT. A negative Cologuard result indicates a low likelihood that a colorectal cancer (CRC) or advanced adenoma (adenomatous polyps with more advanced pre-malignant features) is present. The chance that a person with a negative Cologuard test has a colorectal cancer is less than 1 in 1500 (negative predictive value >99.9%) or has an advanced adenoma is less than 5.3% (negative predictive value 94.7%). These data are based on a prospective cross-sectional study of 10,000 individuals at average risk for colorectal cancer who were screened with both Cologuard and colonoscopy. (Tania Morales et al, N Engl J Med 2014;370(14):4478-9162) The normal value (reference range) for this assay is negative. COLOGUARD RE-SCREENING RECOMMENDATION: Periodic colorectal cancer screening is an important part of preventive healthcare for asymptomatic individuals at average risk for colorectal cancer. Following a negative Cologuard result, the [place] Cancer Society and U.S. Multi-Society Task Force screening guidelines recommend a Cologuard re-screening interval of 3 years. References: [place] [employer] Guideline for Colorectal Cancer Screening: https://www.cancer.org/cancer/rvovq-rncgbn-lqjjdt/udqsddkct-ebzjljiom-qsjnqdt/ac s-rec ommendations.html.; Del DK, Patience CR, Matthew ChavesK, Colorectal Cancer Screening: Recommendations for Physicians and Patients from the U.S. Multi-Society Task Force on Colorectal Cancer Screening , Am J Gastroenterology 2017; 112:1074-3129. TEST DESCRIPTION: Composite algorithmic analysis of stool DNA-biomarkers with hemoglobin immunoassay. Quantitative values of individual biomarkers are not [...] (Tania Phan al, N Engl J Med 2014;370(14):6521-5460.) Cologuard may produce a false negative or false positive result (no colorectal cancer or precancerous polyp present at colonoscopy follow up). A negative Cologuard test result does not guarantee the absence of CRC or advanced adenoma (pre-cancer). The current Cologuard screening interval is every 3 years. ([place] [employer] Society and U.S. Multi-Society Task Force). Cologuard performance data in a 10,000 patient pivotal study using colonoscopy as the reference method can be accessed at the following location: www.[employer]/results. Additional description of the Cologuard test process, warnings and precautions can be found at www.cologKakaMobird.com. Stool specimen (specimen) 11/06/2023 10:00 AM EDT 11/07/2023 2:00 PM EDT us Juana Adkins MD LAB MOLECULAR DIAGNOS TICS ORDERABLES Final Result [employer] (CLIA #:[id number]) [place] [address], * HEPATITIS C ANTIBODY RFLX (07/21/2019 9:00 AM EST) Pathologist [facility] HEPATITIS C ANTIBODY NONREACTIVE NONREACTIVE [facility] Comment: Antibodies to HCV not detected; does not exclude early acute HCV infection. 07/21/2019 9:00 AM EST us Juana Adkins MD HISTORICAL/NON ORDERA BLE LABS Final Result Performing Organization Address [facility] Co de Phone Number [facility] [address] * HIV AB/AG (07/21/2019 9:00 AM EST) HIV AG/AB NONREACTIVE [facility] Comment: HIV-1 p24 Ag and/or HIV-1/HIV-2 Ab not detected. A test result that is nonreactive does not exclude the possibility of exposure to or infection with HIV-1 and/or HIV-2. Nonreactive results in this assay for individuals with prior exposure to HIV-1 and/or HIV-2 may be due to antigen and antibody levels that are below the limit of detection of this assay. The [employer] HIV Ag/Ab Combo assay result and supplemental assay results should be interpreted in conjunction with the patient's clinical presentation, history and other laboratory results. If the results are inconsistent with clinical evidence, additional testing is suggested to confirm the result. 07/21/2019 9:00 AM EST us Juana Adkisn MD HISTORICAL/NON ORDERA BLE LABS Final Result Performing Organization Address [facility] de Phone Number [facility] [address] from Last 3 Months or Most Recently Relevant to Health Maintenance Insurance [facility] < 65 Care Teams Global Account Manager Relationship Specialty Start Date End Date Juana Johnson MD [address] [place] [address] PCP - General Family Medicine 08/12/18
[2025-03-03 16:22] VITALS: BP 151/92; PULSE 98; RESP 18; TEMP 36.6; O2SAT 98
--- NOTE | 2025-03-03 16:37 | PC.NURSE ---
dressing placed by Meli BOND, inst reviewed with site interpreter
== END 2025-03-03 16:37 | disposition home or self-care (01) ==
PROVIDERS: Emergency Provider Emergency Medicine; PCP Internal Medicine
DX: S62.633A Displaced fracture of distal phalanx of left middle finger, initial encounter for closed fracture (principal); S61.303A Unspecified open wound of left middle finger with damage to nail, initial encounter; M79.645 Pain in left finger(s); Y29.XXXA Contact with blunt object, undetermined intent, initial encounter; Y93.9 Activity, unspecified; Y92.9 Unspecified place or not applicable; Y99.8 Other external cause status
CPT/HCPCS: 73140; 99282; 99283

== ENCOUNTER → 2025-03-03 14:11 | Outpatient (BNV) | payer OTHER, SELFPAY | PROVIDERS: PCP Internal Medicine; Visit Provider Radiology Diagnostic Radiology | DX: S62.633A Displaced fracture of distal phalanx of left middle finger, initial encounter for closed fracture (principal) | CPT/HCPCS: 73140 ==

== ENCOUNTER 2025-03-10 10:33 | Outpatient (REF) | payer OTHER, SELFPAY | END 2025-03-10 10:34 | disposition home or self-care (01) | LOC: HO.HOSX 10:33 | DX: Z13.89 Encounter for screening for other disorder (principal) ==

== ENCOUNTER 2025-03-11 14:25 | Outpatient (AMB) | payer OTHER, SELFPAY ==
[2025-03-11 14:30] VITALS: BP 120/84; PULSE 91; O2SAT 97; BMI 34.6
--- NOTE | 2025-03-11 14:30 | HO.NEPHOV ---
Vital Signs 03/11/25 14:30 Height 5 ft 10 in Weight 241 lb BMI 34.6 BP 120/84 Blood Pressure Location Lt brachial Position Sitting Pulse 91 Pulse Source Pulse Oximeter Pulse Oximetry (%) 97 Oxygen Delivery Method Room Air Intake Visit Reasons: INP: Proteinuria/ R/S 01/21/25-Conf Carpet Sewing Machine Operator Required: Yes Carpet Sewing Machine Operator Name: Marlee [id number] Accompanied by: Self / Same As Patient Allergies No Known Allergies Allergy (Verified 03/11/25 14:32) Medication List - Last Reconciled 03/11/25 by Gary Bains MD amlodipine 5 mg PO DAILY atorvastatin 20 mg PO DAILY cephalexin 500 mg PO BID 7 days colchicine 0.6 mg PO DAILY hydrochlorothiazide 50 mg PO DAILY losartan 100 mg PO DAILY metformin ER 500 mg PO DAILY HPI Comments Details: The patient is a 49-year-old male presenting with proteinuria for evaluation of kidney function. The patient has a history of diabetes mellitus diagnosed two years ago. He also has a long-standing history of essential hypertension, which he reports has been present for his entire life. The patient reports using a CPAP machine for sleep apnea, indicating a diagnosis of obstructive sleep apnea. He denies any issues with urination, attributing frequent urination to diuretic use, which he takes once daily in the morning. The patient has a history of a finger injury where the tip was removed, but no further details were provided regarding the cause or treatment. [facility] Medical History Hypertension Knee arthropathy Anemia Social History Household Members: Spouse and Children Alcohol intake: never Current occupational status: unemployed Current occupation: rt handed Review of Systems Const Denies anorexia, Denies fever(s) and Denies weakness Eyes Denies blurry vision Card Denies no additional complaints and Denies dyspnea Resp Reports no additional complaints, Reports cough and Denies dyspnea GI Denies melena and Denies diarrhea Denies hematuria Musc Denies tingling Skin/Breast Denies rash Neuro Denies focal weakness, Denies tingling, Denies tremor(s) and Denies weakness Physical Exam Vital Signs: Last Vital Signs Pulse 91 03/11/25 14:30 BP 120/84 03/11/25 14:30 Pulse Ox 97 03/11/25 14:30 Oxygen Delivery Method Room Air 03/11/25 14:30 BMI result Body Mass Index 34.6 Comfortable Neck supple no JVD. Lungs entry equal no rales. Heart S1-S2 heard no gallop or rub. Abdomen soft nontender. Neuro alert awake oriented. No asterixis. Extremities no edema. Const General: comfortable Nutritional Appearance: well nourished Orientation/consciousness: patient oriented x3 HEENT Head: No normal to inspection Mouth: moist mucous membranes Neck Neck: Yes supple and Yes no JVD Resp Auscultation: clear to auscultation bilaterally and no rales Cardio Jugular venous distension: no JVD Palpation: no palpable S3 and no palpable S4 Heart sounds: no rubs GI Palpation (GI): Soft to palpation and nontender Percussion: No Fluid wave present General: Yes no CVA tenderness Back/Spine/Pelvis Back: no CVA tenderness Skin General skin exam: no rashes or lesions noted Neuro General: patient oriented x3 Extrem General: Yes no pedal edema and No clubbing Results Reviewed Nephrology Results: Hgb, (14.0-18.0) 14.1 g/dl 10/23/24 WBC, (4.8-10.8) 9.5 X10*3/uL 10/23/24 Plt Count, (160-400) 197 X10*3/uL 10/23/24 Sodium, (135-145) 141 mmol/L 10/23/24 Potassium, (3.3-5.1) 3.8 mmol/L 10/23/24 Chloride, (96-108) 106 mmol/L 10/23/24 Carbon Dioxide, (22-29) 26 mmol/L 10/23/24 BUN, (9-16) 17 mg/dL H 10/23/24 Creatinine, (0.5-1.4) 1.19 mg/dL 10/23/24 Calcium, (8.4-10.2) 9.5 mg/dL 10/23/24 Urine Creatinine 364.36 mg/dL 08/20/24 Assessment & Plan Assessment & Plan (1) Microscopic hematuria: Code(s): R31.29 - Other microscopic hematuria Category: Medical (2) Proteinuria: Code(s): R80.9 - Proteinuria, unspecified Category: Medical Plan 49-year-old man with a history of longstanding hypertension and recently diagnosed diabetes mellitus with non nephrotic range proteinuria. Most likely has hypertensive kidney disease. He has mild CKD probably CKD 2. Workup initiated including renal ultrasonogram. Repeat urine protein creatinine ratio. Repeat urinalysis for sediments. Goal is to slow the progression of renal disease. Maintain blood pressure less than 130/80. Maintain A1c less than 7%. Continue to avoid nephrotoxic agents including NSAIDs. Returned to the office after the baseline workup is completed. Thank you Orders: Orders Basic Metabolic Panel 2 Weeks R31.29 - Other microscopic hematuria, R80.9 - Proteinuria, unspecified Creatinine Urine 2 Weeks R31.29 - Other microscopic hematuria, R80.9 - Proteinuria, unspecified US renal BI Today R31.29 - Other microscopic hematuria, R80.9 - Proteinuria, unspecified UA and rflx microscopic 2 Weeks R31.29 - Other microscopic hematuria, R80.9 - Proteinuria, unspecified Total Protein Urine Random 2 Weeks R31.29 - Other microscopic hematuria, R80.9 - Proteinuria, unspecified Coding Level of Care Code New Pt Level 4 (93434) Diagnoses Microscopic hematuria R31.29 Proteinuria R80.9
== END 2025-03-11 14:47 | disposition home or self-care (01) ==
LOC: HO.HKA 14:26
PROVIDERS: PCP Internal Medicine; Visit Provider Internal Medicine Hypertension Specialist
DX: R31.29 Other microscopic hematuria (principal); R80.9 Proteinuria, unspecified
CPT/HCPCS: 99204

== ENCOUNTER → 2025-03-11 14:25 | Outpatient (BNVA) | payer OTHER, SELFPAY | PROVIDERS: PCP Internal Medicine; Visit Provider Internal Medicine Hypertension Specialist | DX: R31.29 Other microscopic hematuria (principal); E11.22 Type 2 diabetes mellitus with diabetic chronic kidney disease; R80.9 Proteinuria, unspecified | CPT/HCPCS: 99202 ==

== ENCOUNTER 2025-03-12 07:33 | Outpatient (REF) | payer OTHER, SELFPAY ==
--- NOTE | ~2025-03-12 | XR_ITS ---
EXAMINATION: XR HAND 3 OR MORE VIEWS LEFT HISTORY: M79.642 - Pain in left hand COMPARISON: Comparison is made with the prior examination dated 03/03/2025. FINDINGS: Three views of the left middle finger are submitted. Osseous mineralization is normal. Again seen is a soft tissue injury of the distal tuft. There is a fracture of the distal tuft which appears well-corticated and chronic. The joint spaces are maintained. There is degenerative change of the wrist. The patient is extension of the distal radius. XR/XR hand LT min 3V IMPRESSION: Soft tissue injury of the distal tuft. Chronic appearing fracture of the distal tuft. Electronically signed by: Soy Marroquin MD 03/12/2025 09:12 AM EDT
--- OUTSIDE RECORDS SUMMARY | 2025-03-12 07:35 | XMS_ITS | Encounter Summary ---
Author Organization [employer] Address [address] [place] [address] Care Team Providers Care Water Mangle Tender Name Role Phone Juana Johnson MD Primary Care Provide r Reason for Visit * Reason Comments Med Refill Encounter Details Date Type Department Care Team ([facility] st Contact Info) Description 03/11/2025 Refill [facility] [address] [place] [address] Juana Johnson MD [address] [place], [place] [id number] Essential hypertension; Type 2 diabetes mellitus without complication, without long-term current use of insulin ([facility]) Social History Tobacco Use Types [...] Description 04/26/2025 10:00 AM EDT Office Visit [facility] [address] [place] [address] Prema Martínez, OD [address] [place] [address] documented as of this encounter Visit Diagnoses Diagnosis Essential hypertension Unspecified essential hypertension Type 2 diabetes mellitus without complication, without long-term current use of insulin ([facility]) documented in this encounter Additional Health Concerns Assessment Noted Time PHQ-9 Depression Total Score: 0 08/04/19 25 2:17 PM EST documented as of this encounter Care Teams Water Mangle Tender Relationship Specialty Start Date End Date Juana Johnson MD [address] [place] [address] PCP - General Family Medicine 08/12/18 documented as of this encounter
== END 2025-03-12 07:34 | disposition home or self-care (01) ==
LOC: HO.HOSX 07:33
DX: S62.633B Displaced fracture of distal phalanx of left middle finger, initial encounter for open fracture (principal); M79.642 Pain in left hand; W23.1XXA Caught, crushed, jammed, or pinched between stationary objects, initial encounter
CPT/HCPCS: 73130; 99212

== ENCOUNTER 2025-03-12 08:41 | Outpatient (AMB) | payer OTHER, SELFPAY ==
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
[2025-03-12 08:51] VITALS: BMI 34.6
== END 2025-03-12 09:46 | disposition home or self-care (01) ==
LOC: HO.HOS 08:42
PROVIDERS: PCP Internal Medicine
DX: S62.633B Displaced fracture of distal phalanx of left middle finger, initial encounter for open fracture (principal)
CPT/HCPCS: 99214

== ENCOUNTER → 2025-03-12 08:44 | Outpatient (BNV) | payer OTHER, SELFPAY | PROVIDERS: Visit Provider Radiology Diagnostic Radiology | DX: M79.642 Pain in left hand (principal) | CPT/HCPCS: 73130 ==

== ENCOUNTER 2025-03-15 08:40 | Day surgery (SDC) | payer OTHER, SELFPAY ==
--- OUTSIDE RECORDS SUMMARY | 2025-03-11 13:21 | XMS_ITS | Encounter Summary ---
Author Organization [employer] Address [address] [facility] [address] [place] [address] Care Team Providers Care Wick Tender Name Role Phone Juana Johnson MD Primary Care Provide r Reason for Visit * Reason Comments Med Refill Encounter Details Date Type Department Care Team ([facility] st Contact Info) Description 03/11/2025 Refill [facility] MEDICINE [address] [place] [address] Juana Johnson MD [address] [place], [place] [phone] Essential hypertension; Type 2 diabetes mellitus without complication, without long-term current use of insulin ([facility]) Social History Tobacco Use Types Packs/Day Years Used Date Smoking Tobacco: Never Passive Smoke Exposure: Never Smokeless Tobacco: Never Alcohol Use Standard Drinks/Week Comments Never 0 [...] Orientation Straight 05/28/2022 10 :34 AM EDT documented as of this encounter Plan of Treatment Upcoming Encounters Date Type Department Care Team (Late st Contact Info) Description 04/26/2025 10:00 AM EDT Office Visit [facility] OPTOMETRY [address] [place] [address] Prema Martínez, OD [address] [place] [address] documented as of this encounter Visit Diagnoses Diagnosis Essential hypertension Unspecified essential hypertension Type 2 diabetes mellitus without complication, without long-term current use of insulin ([facility]) documented in this encounter Additional Health Concerns Assessment Noted Time PHQ-9 Depression Total Score: 0 08/04/19 25 2:17 PM EST documented as of this encounter Care Teams Wick Tender Relationship Specialty Start Date End Date Juana Johnson MD [address] [place] [address] PCP - General Family Medicine 08/12/18 documented as of this encounter
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
[2025-03-15 08:54] VITALS: BMI 33.6
[2025-03-15 08:56] VITALS: BP 136/88; PULSE 93; RESP 18; TEMP 36.9; O2SAT 98
[2025-03-15 09:24] LABS: Glucose, Whole Blood 134 mg/dL (60-115)
--- NOTE | 2025-03-15 09:27 | MHC.SHP ---
Pre-Procedural Eval Section A - 24 Hr Update-Section A only Date of Service: 03/15/25 The patient is an INPATIENT: No Changes since office visit: No Cold of Flu in the past 2 weeks, No New Medical Problems, No Changes in Medication and No Patient answered all questions The patient has been examined within 24 hours of the surgical procedure. The History & Physical has been completed within 30 days and I have reviewed it.: Yes Section B - Complete if H&P > 30 days Chief Complaint: Displaced fracture of middle phalanx of left middl Allergies: Allergies Allergy/AdvReac Type Severity Reaction Status Date / Time No Known Allergies Allergy Verified 03/12/25 08:51 Plan I have reviewed the history and physical and performed a pertinent physical examination on my patient. No changes have occurred unless specified. Time Spent With Patient Time: Total time managing care of this patient today ____ minutes.
--- NOTE | 2025-03-15 09:28 | W.PM.OPN ---
Operative Note Operative Note Date of Service: 03/15/25 Narrative: Operative Note Narrative: Preop diagnosis: 1. Left middle finger near amputation with an area of skin loss over the volar aspect of the pad 2. Left middle finger open distal phalanx tuft fracture. Postop diagnosis: Same Procedure: 1. I and D of open left middle finger distal phalanx fracture Surgeon: Sonja Han MD None Anesthesia: General Anesthesia Findings: Healthy granulation tissue forming over the area of full-thickness skin loss over most of the pad of the middle finger. Implants: None Tourniquet time: 10 minutes EBL: 5.0 ml Specimen: None Drains: None Complications: None Disposition: Brought to the recovery room in stable condition Plan: Follow-up in 7-10 days for wound check Anticipate suture removal in 10-14 days Continue antibiotics until finished Indications: The patient is 49 years old with a near amputation of the left middle finger involving loss of most of the full-thickness skin from the pad of the middle finger, as well as resulting in an open middle finger distal phalanx tuft fracture . The risks and benefits of operative treatment, including but not limited to risk of damage to blood vessels, nerves, tendons, infection, recurrence, persistent pain or numbness, incomplete resolution of preoperative symptoms, or need for further surgery were discussed with the patient and they wished to proceed with surgery. Procedure: Once consent was obtained patient was brought back to the operating suite and placed in the operating table in a supine position. . Perioperative antibiotics and anesthesia was administered by the anesthesia team. A tourniquet was applied to the proximal aspect of the left upper extremity and the limb was prepped and draped in a standard surgical fashion. The limb was elevated exsanguinated with Esmarch bandage and the tourniquet inflated to 250 mm of mercury for a total tourniquet time of 10 minutes. There was an oval shaped area of full-thickness skin loss on the pad of the patient's middle finger that measured about 2 cm in length by 1-1.2 cm in width. This wound was clean and with healthy-appearing early granulation tissue. There was no erythema drainage or evidence of infection. I used a pair of tenotomy scissors to enter the wound at the distal aspect of the wound and immediately entered the open fracture. I then performed an I&D of the open fracture. I used a [place] elevator and then a small curette to debride the open fracture. The wound and fracture were then copiously irrigated with normal saline using a 10 mL syringe with an Angiocath. At this point the tourniquet was deflated and hemostasis obtained with a brief period of local pressure.. The wound was again copiously irrigated with normal saline. The skin edges were reapproximated with 4-0 Prolene suture in an effort to bring the skin edges slightly closer together.. a digital block was performed using some 0.5% plain ropivacaine for postop pain control, small amount of Neosporin and a sterile dressing was applied. The patient appears to have tolerated the procedure well and with no complications. All digits were well vascularized conclusion of the case.
[2025-03-15 11:45] VITALS: BP 128/74; PULSE 70; RESP 16; TEMP 36.6; O2SAT 97
[2025-03-15 11:50] VITALS: BP 114/68; PULSE 93; RESP 16; O2SAT 94
[2025-03-15 11:55] VITALS: BP 107/70; PULSE 96; RESP 18; O2SAT 95
[2025-03-15 12:00] VITALS: BP 112/73; PULSE 85; RESP 16; O2SAT 97
[2025-03-15 12:15] VITALS: BP 115/76; PULSE 77; RESP 14; TEMP 36.8; O2SAT 100
== END 2025-03-15 12:59 | disposition home or self-care (01) ==
PROVIDERS: PCP Internal Medicine; Visit Provider Orthopaedic Surgery
PROC: (CPT 26765; principal; 2025-03-15 10:30)
DX: S62.633B Displaced fracture of distal phalanx of left middle finger, initial encounter for open fracture (principal); M79.642 Pain in left hand; W24.0XXA Contact with lifting devices, not elsewhere classified, initial encounter; Y93.89 Activity, other specified; Y92.9 Unspecified place or not applicable; Y99.9 Unspecified external cause status; E11.9 Type 2 diabetes mellitus without complications; N52.1 Erectile dysfunction due to diseases classified elsewhere; I10 Essential (primary) hypertension; D64.9 Anemia, unspecified; M17.9 Osteoarthritis of knee, unspecified; Z79.84 Long term (current) use of oral hypoglycemic drugs; Z79.899 Other long term (current) drug therapy; Z56.0 Unemployment, unspecified
CPT/HCPCS: 26765; 82947; J0131; J0690; J1171; J2003; J2704; J2795; J3010

== ENCOUNTER → 2025-03-15 08:40 | Outpatient (BNV) | payer OTHER, SELFPAY | PROVIDERS: PCP Internal Medicine; Visit Provider Orthopaedic Surgery | DX: S62.633B Displaced fracture of distal phalanx of left middle finger, initial encounter for open fracture (principal) | CPT/HCPCS: 11012 ==

== ENCOUNTER 2025-03-23 08:38 | Outpatient (REF) | payer OTHER, SELFPAY ==
--- NOTE | ~2025-03-23 | XR_ITS ---
EXAMINATION: XR HAND 3 OR MORE VIEWS LEFT HISTORY: M79.642 - Pain in left hand COMPARISON: Comparison is made with the prior examination dated 03/12/2025. FINDINGS: Three views of the left hand are submitted. Osseous mineralization is normal. Again seen is a chronic appearing fracture deformity of the distal tuft of the middle finger. The patient is status post internal fixation of the distal radius. There is an old ununited ulnar side fracture. There is degenerative change of the carpus. Again seen is soft tissue injury to the distal tuft. XR/XR hand LT min 3V IMPRESSION: Chronic appearing fracture deformity of the distal tuft of the middle finger. Electronically signed by: Soy Marroquin MD 03/23/2025 01:02 PM EDT
--- OUTSIDE RECORDS SUMMARY | 2025-03-25 09:19 | XMS_ITS | Clinical Summary ---
Author Organization [employer] Address [address] [facility] [address] [place] [address] Care Team Providers Care Analog Design Engineer Name Role Phone Juana Johnson [...] 21 Active ergocalciferol (Vitamin D-2) 1.25 MG (99423 UT) capsule take 1 capsule by oral [...] complication, without long-term current use of insulin ([facility]) 1 each 2 times daily. 100 each 3 12/24/19 24 Active colchicine 0.6 MG tabletIndication s:Articular gout Take 1 tablet (0.6 mg) by mouth Once per day. 60 tablet 6 12/24/19 24 Active Lancets miscIndications: Type 2 diabetes mellitus without complication, without long-term current use of insulin ([facility]) Use to test blood sugar 2 times [...] complication, without long-term current use of insulin ([facility]) Use to test blood sugar 1 times daily 100 each 1 08/04/19 25 2025 Active Alcohol Swabs 70 % padsIndications: Type 2 diabetes mellitus without complication, without long-term current use of insulin ([facility]) Use to test blood sugar 1 times daily 100 each 08/04/19 25 Active Blood Glucose Monitoring Suppl (FreeStyle [place] Lite) w/Device kitIndications:T ype 2 diabetes mellitus without complication, without long-term current use of insulin ([facility]) Use to test blood sugar 1 times [...] DEPARTMENT Provider, Generic External Data 03/11/2025 Refill [facility] [address] [place] [address] Juana Johnson MD Essential hypertension; Type 2 diabetes mellitus without complication, without long-term current use of insulin ([facility]) 03/03/2025 Orders Only [facility] External Provider, [facility] 02/26/2025 Refill [facility] [address] [place] [address] Juana Johnson MD Type 2 diabetes mellitus without complication, without long-term current use of insulin ([facility]) 01/17/2025 Refill [facility] [address] [place] [address] Juana Johnson MD Essential hypertension 01/07/2025 Orders [...] Description 04/26/2025 10:00 AM EDT Office Visit [facility] OPTOMETRY [address] [place] [address] Mauricio, Prema, OD [address] [place] [address] Health Maintenance Due Date Last Done Comments [...] Whole Blood 134(H) 60 - 115 mg/dL [facility] Comment:METER #: [id number] 03/15/2025 9:09 AM EDT 03/15/2025 9:23 AM EDT us Generic External Data Provider LAB BLOOD ORDERAB LES Final Result [facility] [address] [place] [phone] * XR Fingers 2+ Views Left (03/03/2025 2:30 PM EDT) Anatomical Region Laterality Modality Upper Extremities, Fingers Left Radio graphic Imaging 03/03/2025 2:30 PM EDT Narrative 03/03/2025 2:50 PM EDT [address] [address] XRay Report Signed Patient: Elton Nation MR#: [id number] : 1975 Acct:[id number] Age/Sex: 49 / M ADM Date: 03/03/25 Loc: HO.ED Attending Dr: Ordering Physician: Emily Baker Date of Service: 03/03/25 Procedure(s): XR finger LT min 2V Accession Number(s): [id number] cc: Juana Johnson MD; Emily Baker EXAMINATION: [...] 03/03/25 1447 DD/ 1430 TD/TT: 03/03/25 1437 Deputy Chief Sheriff: Procedure Note Donotuseinterpreter, Image - 03/03/[address] [address] XRay Report Signed Patient: Elton NationMR#: [id number] : 1975Acct:[id number] Age/Sex: 49 / MADM Date: 03/03/25 Loc: HO.ED Attending Dr: Ordering Physician: Emily Baker Date of Service: 03/03/25 Procedure(s): XR finger LT min 2V Accession Number(s): [id number] cc: Juana Johnson MD; Emily Baker EXAMINATION: [...] 03/03/25 1447 DD/ 1430 TD/TT: 03/03/25 1437 Deputy Chief Sheriff: [facility] External Provider IMG XR PROCEDURES Final Result * Cytopath-cell enhanced (01/07/2025 4:51 PM EDT) 01/07/2025 4:51 PM EDT 01/08/2025 11:30 AM EDT [facility] - 01/11/2025 11:14 AM EDT ----- ------- Name: Elton Nation Age/Sex: 49/M : 1975 Unit#: [id number] Attend Dr: Bindu Jung [facility] Re01/07/25 Status: [facility] REF Location: [facility] Disch: ----- ------- SPEC : [id number] RECD: 01/08/25-1129 STATUS: ALISIA GHOSH NUM: [id number] JENIFER: 01/07/25-[address]: Bindu Jung [facility] ENTERED: 01/08/25-134 SP TYPE: Cytology OTHR DR: [...] developed and their performance characteristics determined by [facility]. They have not been cleared or approved by the U.S. Food and Drug Administration (FDA). However, the FDA has determined that such clearance or approval is not necessary. This laboratory is certified under the Clinical Laboratory Improvement Amendments of 1988 (CLIA) as qualified to perform high complexity clinical laboratory testing. Copies To: Juana Johnson MD [address] [phone] Bindu Jung [facility] [address] [place] [address] Dr. Rainey [address] [place], [place] [phone] [email or web address] CONTINUED ON NEXT PAGE ----- ------- Name: Elton Nation Age/Sex: 49/M : 1975 Unit#: [id number] Attend Dr: Bindu Jung [facility] Re01/07/25 Status: DEP REF Location: [facility] Disch: ----- ------- SPEC : [id number] RECD: 01/08/25-1129 STATUS: ALISIA GHOSH NUM: [id number] JENIFER: 01/07/[address] [facility] [address]: Bindu Jung [facility] ENTERED: 01/08/25-7286 SP TYPE: Cytology OTHR DR: Juana Johnson MD ORDERED: Cyto-enhanced ----- ------- Signed (signature on file) Иван Jimenez MD 01/11/25 1114 ----- ------- END OF REPORT Generic External Data Provider LAB CYTOLOGY ORDE RABLES Final Result Performing Organization Address [facility]/ZIP Co de Phone Number [facility] [address] [place] [phone] * (ABNORMAL) POCT HGB A1C (10/23/2024 11:25 AM EDT) Hemoglobin A1C 6.7(A) 4.0 - 6.0 % QC Media Lot # [id number] Lot# Expiration Date Blood 10/23/2024 11:2 5 AM EDT Juana Adkins MD POINT OF CARE TEST EN TER/EDIT ORDERABLES Final Result * (ABNORMAL) Albumin, Random Urine W/Creatinine (08/20/2024 9:52 AM EST) Creatinine, Urine 364.36 mg/dL [facility] Microalbumin Urine 1,262.0 mg/L [facility] Microalbum Creatinine Ratio Ur 346.3(H) <30 ug/mg cr [facility] Comment:Albumin/Creatinine R atio Reference Ranges: Normal: < 30 ug/mg creatinine Microalbuminuria: 30 - 300 ug/mg creatinineClinical Albuminuria: > 300 ug/mg creatinine Urine (Urine, Random) 08/20/2024 9:52 AM EST 08/20/2024 11:27 AM EST Juana Adkins MD LAB URINE ORDERABLES Final Result Performing Organization Address [facility]/ZIP Co de Phone Number [facility] [address] [place] [phone] * (ABNORMAL) Lipid Panel, Standard (08/20/2024 9:52 AM EST) Triglycerides 251(H) <150 mg/dL [facility] Comment:Desirable Triglyceri de: less than 150 mg/dLBorderline High Triglyceride 150-199 mg/dLHigh Triglyceride: 200-499 mg/dLVery High Triglyceride: greater than or equal to 5OO mg/dL Cholesterol 152 <200 mg/dL [facility] Comment:Desirable Cholestero l: less than 200 mg/dLBorderline High Cholesterol: 200-239 mg/dLHigh Cholesterol: greater than 239 mg/dL LDL Cholesterol Calculated 61 <100 mg/dL [facility] Comment:Desirable LDL: less than 100 mg/dLNear Optimal/Above Optimal LDL: 110- 129 mg/dLBorderline High LDL: 130-159 mg/dLHigh LDL: 160-189 mg/dLVery High LDL: greater than or equal to 190 mg/dL HDL Cholesterol 41 >40 mg/dL [facility] Comment:Desirable HDL: great er than 40 mg/dL Note: This HDL assay may give artificially low results in patients with liver disease. Blood Venous blood specimen / Unknown 08/20/2024 9:52 AM EST 08/20/2024 11:20 AM EST Juana Adkins MD LAB BLOOD ORDERABLES Final Result [facility] [address] [place] [phone] * Cologuard?? colon cancer screening (11/06/2023 10:00 AM EDT) Cologuard Result Negative Negative 11/13/19 8:34 AM EDT [email or web address] (CLIA #:[id number]) Comment: NEGATIVE TEST RESULT. A negative Cologuard [...] (Tania Phan al, N Engl J Med 2014;370(14):1733-8383) The normal value (reference range) for this assay is negative. COLOGUARD RE-SCREENING RECOMMENDATION: Periodic colorectal cancer screening is an important part of preventive healthcare for asymptomatic individuals at average risk for colorectal cancer. Following a negative Cologuard result, the [place] Cancer Society and U.S. Multi-Society Task Force screening guidelines recommend a Cologuard re-screening interval of 3 years. References: [place] [employer] Guideline for Colorectal Cancer Screening: https://www.cancer.org/cancer/zmdai-sabukl-lafgwk/fqebafani-idqncrlsg-cksigel/ac s-rec ommendations.html.; Del DK, Patience CAVAZOS, Matthew ChavesK, Colorectal Cancer Screening: Recommendations for Physicians and Patients from the U.S. Multi-Society Task Force on Colorectal Cancer Screening , Am J Gastroenterology 2017; 112:9370-2747. TEST DESCRIPTION: Composite algorithmic analysis of stool [...] (Tania Phan al, N Engl J Med 2014;370(14):5674-0855.) Cologuard may produce a false negative or false positive result (no colorectal cancer or precancerous polyp present at colonoscopy follow up). A negative Cologuard test result does not guarantee the absence of CRC or advanced adenoma (pre-cancer). The current Cologuard screening interval is every 3 years. ([place] Cancer Society and U.S. Multi-Society Task Force). Cologuard performance data in a 10,000 patient pivotal study using colonoscopy as the reference method can be accessed at the following location: www.[employer]/results. Additional description of the Cologuard test process, warnings and precautions can be found at www.cologuard.com. Stool specimen (specimen) 11/06/2023 10:00 AM EDT 11/07/2023 2:00 PM EDT Juana Adkins MD LAB MOLECULAR DIAGNOS TICS ORDERABLES Final Result Performing Organization Address City/[facility]/ZIP Co de Phone Number [email or web address] (CLIA #:[id number]) Vicente [place] [address], * HEPATITIS C ANTIBODY RFLX (07/21/2019 9:00 AM EST) HEPATITIS C ANTIBODY NONREACTIVE NONREACTIVE [facility] Comment: Antibodies to HCV not detected; does not exclude early acute HCV infection. 07/21/2019 9:00 AM EST us Juana Adkins MD HISTORICAL/NON ORDERA BLE LABS Final Result Performing Organization Address [facility] Co de Phone Number [facility] [address] * HIV AB/AG (07/21/2019 9:00 AM [...] of detection of this assay. The [employer] Carpet Installer Helper HIV Ag/Ab Combo assay result and supplemental assay results should be interpreted in conjunction with the patient's clinical presentation, history and other laboratory results. If the results are inconsistent with clinical evidence, additional testing is suggested to confirm the result. 07/21/2019 9:00 AM EST us Juana Adkins MD HISTORICAL/NON ORDERA BLE LABS Final Result [facility] [address] from Last 3 Months or Most Recently Relevant to Health Maintenance Insurance [facility] ONE CARE < [address] [place] [id number] Care Teams Analog Design Engineer Relationship Specialty Start Date End Date Juana Johnson MD [address] [place] [phone] PCP - General Family Medicine 08/12/18
== END 2025-03-23 08:39 | disposition home or self-care (01) ==
LOC: HO.HOSX 08:38
PROVIDERS: Visit Provider Orthopaedic Surgery
DX: Z47.89 Encounter for other orthopedic aftercare (principal); S62.633D Displaced fracture of distal phalanx of left middle finger, subsequent encounter for fracture with routine healing; E11.9 Type 2 diabetes mellitus without complications; Z89.022 Acquired absence of left finger(s); W23.0XXD Caught, crushed, jammed, or pinched between moving objects, subsequent encounter; Y92.094 Garage of other non-institutional residence as the place of occurrence of the external cause
CPT/HCPCS: 73130; 99212

== ENCOUNTER 2025-03-23 12:48 | Outpatient (AMB) | payer OTHER, SELFPAY ==
--- NOTE | 2025-03-23 13:04 | MHC.OFFVIS ---
Intake Visit Reasons: PO LT MF I&D/revsn amp/removal nail bed 03/15/25 AR Intake Note: Elotn 49 yr old right hand dominant male presents today for his PO visit for his left middle finger I&D /revsn amp/removal nail bed 03/15/[address] Han. Dressing removed in office. States he has no pain and is doing well. Has concerns of deformity in tip of finger. Allergies No Known Allergies Allergy (Verified 03/23/25 13:16) HPI HPI PO LT MF I&D/revsn amp/removal nail bed 03/15/25 AR: Details: Elton is a 49 year old right hand dominant man who presents S/P let middle finger I&D of open left middle finger distal phalanx fracture, DOS: 03/15/25. He is S/P left middle finger near amputation with an area of skin loss over the volar aspect of the pad & open distal phalanx tuft fracture, DOI: 03/03/25, crushing his finger with a car david in his garage. He says he is doing well and minimal pain. He has been taking his Abx as instructed. [facility] Medical History Hypertension Knee arthropathy Anemia Social History Household Members: Spouse and Children Are you a primary post acute care nurse to a significant other at home: No Do you presently have visiting nurse or other home services: No Alcohol intake: never Patient Tobacco Use Status: Never used Tobacco Second Hand Smoke Exposure: No Current occupational status: unemployed Current occupation: rt handed Review of Systems Const All systems reviewed & are unremarkable except as noted in HPI and below Physical Exam Const General: no acute distress and alert Orientation/consciousness: patient oriented x3 Neuro General: patient oriented x3 Extrem Other: The patient was alert oriented and in no acute distress The incision is healing well with no erythema drainage or evidence of infection. The wound is narrowing, and he is forming some nice granulation tissue. There is a prominence of the soft tissue at the tip of the finger, but I think some of this will round out after we removed the sutures. Good flexion at the MCP and reasonable flexion at the PIP joint Sensation is intact Cap refill is brisk Radiographs: 3 views of the left hand were taken and viewed by me today in clinic. They show a middle finger open distal phalanx fracture with satisfactory fracture alignment. Psych Appearance: grossly normal Affect: normal affect Attitude: cooperative Assessment & Plan Assessment & Plan (1) Open fracture of distal phalanx of left middle finger: Code(s): S62.633B - Displaced fracture of distal phalanx of left middle finger, initial encounter for open fracture Category: Medical (2) Diabetes mellitus: Code(s): E11.9 - Type 2 diabetes mellitus without complications Category: Medical Plan Assessment & Plan: 1. Left middle finger near amputation with an area of skin loss over the volar aspect of the pad 2. Left middle finger open distal phalanx tuft fracture S/P I&D, DOS: 03/15/25 From a crush injury, DOI: 03/03/25 The patient appears to be doing well post-operatively I educated him about the post-operative course I explained the signs and symptoms of infection, if the patient develops any new or worsening erythema, drainage, pain, or warmth they should contact the clinic or attend the ED. He will continue to take his Abx as instructed and perform daily wound care I discussed activity modifications, he is to lift nothing heavier than a cellphone for the next 4 weeks He will perform gentle ROM exercises at home He should avoid any underwater activities He will follow up next week for a wound check & suture removal Scribed for Sonja Han MD by Con Vitale, biomedical field service engineer, on 03/23/25 at 1:30 PM, EST. Orders: Orders XR hand LT min 3V Today M79.642 - Pain in left hand Coding Level of Care Code Global (19569) Diagnoses Open fracture of distal phalanx of left middle finger S62.633B Diabetes mellitus E11.9
--- OUTSIDE RECORDS SUMMARY | 2025-03-23 13:30 | XMS_ITS | Clinical Summary ---
Author Organization [employer] Address [address] [place] [address] Care Team Providers Care Test Design Engineer Name Role Phone Juana Johnson MD Primary [...] 21 Active ergocalciferol (Vitamin D-2) 1.25 MG (89016 UT) capsule take 1 capsule by oral [...] tablets by mouth at bed time. 06/01/20 Active cetirizine (ZyrTEC) 10 MG tablet Take 1 tablet (10 mg) by mouth in the morning. 30 tablet 11 07/30/19 24 Active Alcohol Swabs (Alcohol Prep) 70 % padsIndications: Type 2 diabetes mellitus without complication, without long-term current use of insulin ([facility]) 1 each 2 times daily. 100 each 3 12/24/19 24 Active colchicine 0.6 MG tabletIndication s:Articular gout Take 1 tablet (0.6 mg) by mouth Once per day. 60 tablet 6 12/24/19 24 Active Lancets miscIndications: Type 2 diabetes mellitus without complication, without long-term current use of insulin ([facility]) Use to test blood sugar 2 times [...] complication, without long-term current use of insulin ([facility]) Use to test blood sugar 1 times daily 100 each 1 08/04/19 25 2025 Active Alcohol Swabs 70 % padsIndications: Type 2 diabetes mellitus without complication, without long-term current use of insulin ([facility]) Use to test blood sugar 1 times daily 100 each 08/04/19 25 Active Blood Glucose Monitoring Suppl (FreeStyle [place] Lite) w/Device kitIndications:T ype 2 diabetes mellitus without complication, without long-term current use of insulin ([facility]) Use to test blood sugar 1 times daily 1 kit 08/04/19 25 Active losartan (Cozaar) 100 MG tablet Take [...] not crush, chew, or split. 30 tablet 02/27/20 25 2025 Active amLODIPine (Norvasc) 5 MG tabletIndication s:Essential hypertension TAKE 1 TABLET BY MOUTH EVERY DAY 90 tablet 3 03/11/20 25 Active atorvastatin (Lipitor) 20 MG tabletIndication s:Essential hypertension TAKE 1 TABLET IN THE EVENING EVERY DAY 90 tablet 03/11/20 25 Active TRUEplus Lancets 33G miscIndications: Type 2 diabetes mellitus without complication, without long-term current use of insulin (CMS/HCC) USE DIRECTED TO TEST BLOOD SUGAR EVERY DAY 100 each 4 03/11/20 25 Active atorvastatin (Lipitor) 20 MG tabletIndication s:Essential hypertension Take 1 tablet (20 mg) by mouth Once per day. 90 tablet 12/24/19 24 2024 Discontinued amLODIPine (Norvasc) 5 MG tabletIndication s:Essential hypertension Take 1 tablet (5 mg) by mouth Once per day. 90 tablet 12/24/19 24 2024 Discontinued metFORMIN, OSM, (Fortamet) 500 MG 24 hr tabletIndication s:Type 2 diabetes mellitus without complication, without long-term current use of insulin (CMS/HCC) Take 1 tablet (500 mg) by mouth with evening meal. Do not crush, chew, or split. 30 tablet 12/24/19 24 2024 Discontinued(R eorder (will not trigger notification to Pharmacy)) Lancets miscIndications: Type 2 diabetes mellitus without complication, without long-term current use of insulin (CMS/HCC) Use to test blood sugar 1 times daily 100 each 1 08/04/19 25 2024 Discontinued Active Problems Problem Noted Date Diagnosed Date [...] control Viral upper respiratory tract infection 12/24/19 24 Assessment & Plan (12/24/2023 10:00 AM EDT): [...] Encounters Date Type Department Care Team Description 03/15/2025 Orders Only GENERIC EXTERNAL DATA DEPARTMENT Provider, Generic External Data 03/11/2025 Refill [facility] [address] [place] [address] Juana Johnson MD Essential hypertension; Type 2 diabetes mellitus without complication, without long-term current use of insulin ([facility]) 03/03/2025 Orders Only [facility] External Provider, [facility] 02/26/2025 Refill [facility] [address] [place] [address] Juana Johnson MD Type 2 diabetes mellitus without complication, without long-term current use of insulin ([facility]) 01/17/2025 Refill [facility] [address] [place] [address] Juana Johnson MD Essential hypertension 01/07/2025 Orders [...] Description 04/26/2025 10:00 AM EDT Office Visit [facility] [address] [place] [address] Mauricio, Prema, OD [address] [place] [address] Health Maintenance Due Date Last Done Comments [...] (#1) 2025 08/04/2024, 2021 Diabetes: Hemoglobin A1C 04/25/20252 025, 08/04/2024, 09/25/2023, [...] Procedure Name Priority Date/Time Associated Diagnosis Comments GLUCOSE, WHOLE BLOOD Routine 03/15/2025 9:09 AM EDT XR FINGERS 2+ VIEWS LEFT Routine 03/03/2025 [...] Recently Relevant to Health Maintenance Results * (ABNORMAL) Glucose, Whole Blood (03/15/2025 9:09 AM EDT) Glucose, Whole Blood 134(H) 60 - 115 mg/dL [facility] Comment:METER #: [id number] 03/15/2025 9:09 AM EDT 03/15/2025 9:23 AM EDT us Generic External Data Provider LAB BLOOD ORDERAB LES Final Result [facility] [address] [place] [phone] * XR Fingers 2+ Views Left (03/03/2025 2:30 PM EDT) Anatomical Region Laterality Modality Upper Extremities, Fingers Left Radio graphic Imaging 03/03/2025 2:30 PM EDT Narrative 03/03/2025 2:50 PM EDT [address] [address] XRay Report Signed Patient: Elton Nation MR#: [id number] : 1975 Acct:[id number] Age/Sex: 49 / M ADM Date: 03/03/25 Loc: HO.ED Attending Dr: Ordering Physician: Emily Baker Date of Service: 03/03/25 Procedure(s): XR finger LT min 2V Accession Number(s): [id number] cc: Juana Johnson MD; Emily Baker EXAMINATION: [...] Soy Marroquin MD 03/03/2025 02:47 PM EDT RP Dictated By: Soy Marroquin MD Signed By: <Electronically signed by Soy Marroquin MD in OV> 03/03/25 1447 DD/ 1430 TD/TT: 03/03/25 1437 Manager Of Loss Prevention Operations: Procedure Note Donotuseinterpreter, Image - 03/03/[address] [address] XRay Report Signed Patient: Elton NationMR#: [id number] : 1975Acct:[id number] Age/Sex: 49 / MADM Date: 03/03/25 Loc: HO.ED Attending Dr: Ordering Physician: Emily Baker Date of Service: 03/03/25 Procedure(s): XR finger LT min 2V Accession Number(s): [id number] cc: Juana Johnson MD; Emily Baker EXAMINATION: [...] 03/03/25 1447 DD/ 1430 TD/TT: 03/03/25 1437 Manager Of Loss Prevention Operations: [facility] External Provider IMG XR PROCEDURES Final Result * Cytopath-cell enhanced (01/07/2025 4:51 PM EDT) 01/07/2025 4:51 PM EDT 01/08/2025 11:30 AM EDT [facility] - 01/11/2025 11:14 AM EDT ----- ------- Name: Elton Nation Age/Sex: 49/M : 1975 Unit#: [id number] Attend Dr: Bindu Jung [facility] Re01/07/25 Status: [facility] REF Location: [facility] Disch: ----- ------- SPEC : [id number] RECD: 01/08/25-1129 STATUS: ALISIA GHOSH NUM: [id number] JENIFER: 01/07/25-[address]: Bindu Jung [facility] ENTERED: 01/08/25-134 SP TYPE: Cytology OTHR DR: Juana Johnson MD ORDERED: Cyto-enhanced Diagnosis [...] developed and their performance characteristics determined by [facility]. They have not been cleared or approved by the U.S. Food and Drug Administration (FDA). However, the FDA has determined that such clearance or approval is not necessary. This laboratory is certified under the Clinical Laboratory Improvement Amendments of 1988 (CLIA) as qualified to perform high complexity clinical laboratory testing. Copies To: Juana Johnson MD [address] [phone] Bindu Jung [facility] [address] [place] [address] Dr. Rainey [address] [place], [place] [phone] [email or web address] CONTINUED ON NEXT PAGE ----- ------- Name: Elton Nation Age/Sex: 49/M : 1975 Unit#: [id number] Attend Dr: Bindu Jung [facility] Re01/07/25 Status: DEP REF Location: [facility] Disch: ----- ------- SPEC : [id number] RECD: 01/08/25-1129 STATUS: AILSIA GHOSH NUM: [id number] JENIFER: 01/07/[address] [facility] [address]: Bindu Jung [facility] ENTERED: 01/08/25-6654 SP TYPE: Cytology OTHR DR: Juana Johnson MD ORDERED: Cyto-enhanced ----- ------- Signed (signature on file) Иван Jimenez MD 01/11/25 1114 ----- ------- END OF REPORT Generic External Data Provider LAB CYTOLOGY ORDE RABLES Final Result Performing Organization Address [facility]/ZIP Co de Phone Number [facility] [address] [place] [phone] * (ABNORMAL) POCT HGB A1C (10/23/2024 11:25 AM EDT) Hemoglobin A1C 6.7(A) 4.0 - 6.0 % QC Media Lot # [id number] Lot# Expiration Date Blood 10/23/2024 11:2 5 AM EDT Juana Adkins MD POINT OF CARE TEST EN TER/EDIT ORDERABLES Final Result * (ABNORMAL) Albumin, Random Urine W/Creatinine (08/20/2024 9:52 AM EST) Creatinine, Urine 364.36 mg/dL [facility] Microalbumin Urine 1,262.0 mg/L [facility] Microalbum Creatinine Ratio Ur 346.3(H) <30 ug/mg cr [facility] Comment:Albumin/Creatinine R atio Reference Ranges: Normal: < 30 ug/mg creatinine Microalbuminuria: 30 - 300 ug/mg creatinineClinical Albuminuria: > 300 ug/mg creatinine Urine (Urine, Random) 08/20/2024 9:52 AM EST 08/20/2024 11:27 AM EST Juana Adkins MD LAB URINE ORDERABLES Final Result Performing Organization Address [facility]/ZIP Co de Phone Number [facility] [address] [place] [phone] * (ABNORMAL) Lipid Panel, Standard (08/20/2024 9:52 AM EST) Triglycerides 251(H) <150 mg/dL [facility] Comment:Desirable Triglyceri de: less than 150 mg/dLBorderline High Triglyceride 150-199 mg/dLHigh Triglyceride: 200-499 mg/dLVery High Triglyceride: greater than or equal to 5OO mg/dL Cholesterol 152 <200 mg/dL [facility] Comment:Desirable Cholestero l: less than 200 mg/dLBorderline High Cholesterol: 200-239 mg/dLHigh Cholesterol: greater than 239 mg/dL LDL Cholesterol Calculated 61 <100 mg/dL [facility] Comment:Desirable LDL: less than 100 mg/dLNear Optimal/Above Optimal LDL: 110- 129 mg/dLBorderline High LDL: 130-159 mg/dLHigh LDL: 160-189 mg/dLVery High LDL: greater than or equal to 190 mg/dL HDL Cholesterol 41 >40 mg/dL [facility] Comment:Desirable HDL: great er than 40 mg/dL Note: This HDL assay may give artificially low results in patients with liver disease. Blood Venous blood specimen / Unknown 08/20/2024 9:52 AM EST 08/20/2024 11:20 AM EST Juana Adkins MD LAB BLOOD ORDERABLES Final Result [facility] [address] [place] [phone] * Cologuard?? colon cancer screening (11/06/2023 10:00 AM EDT) Cologuard Result Negative Negative 11/13/19 8:34 AM EDT [employer] (CLIA #:[id number]) Comment: NEGATIVE TEST RESULT. A negative Cologuard [...] (Tania Phan al, N Engl J Med 2014;370(14):5137-5274) The normal value (reference range) for this assay is negative. COLOGUARD RE-SCREENING RECOMMENDATION: Periodic colorectal cancer screening is an important part of preventive healthcare for asymptomatic individuals at average risk for colorectal cancer. Following a negative Cologuard result, the [place] [employer] and U.S. Multi-Society Task Force screening guidelines recommend a Cologuard re-screening interval of 3 years. References: [place] [employer] Guideline for Colorectal Cancer Screening: https://www.cancer.org/cancer/ezqmf-yuvcal-xqrjte/emxtavcjf-yojlxxxgh-ylvtncw/ac s-rec ommendations.html.; Del DK, Patience CAVAZOS, Matthew ChavesK, Colorectal Cancer Screening: Recommendations for Physicians and Patients from the U.S. Multi-Society Task Force on Colorectal Cancer Screening , Am J Gastroenterology 2017; 112:7101-7012. TEST DESCRIPTION: Composite algorithmic analysis of stool [...] (Tania Phan al, N Engl J Med 2014;370(14):4333-0648.) Cologuard may produce a false negative or false positive result (no colorectal cancer or precancerous polyp present at colonoscopy follow up). A negative Cologuard test result does not guarantee the absence of CRC or advanced adenoma (pre-cancer). The current Cologuard screening interval is every 3 years. ([place] [employer] and U.S. Multi-Society Task Force). Cologuard performance data in a 10,000 patient pivotal study using colonoscopy as the reference method can be accessed at the following location: www.[employer]/results. Additional description of the Cologuard test process, warnings and precautions can be found at www.cologuard.com. Stool specimen (specimen) 11/06/2023 10:00 AM EDT 11/07/2023 2:00 PM EDT Juana Adkins MD LAB MOLECULAR DIAGNOS TICS ORDERABLES Final Result Performing Organization Address City/[facility]/ZIP Co de Phone Number [facility] (CLIA #:[id number]) [place] [address], * HEPATITIS C ANTIBODY RFLX (07/21/2019 9:00 AM EST) HEPATITIS C ANTIBODY NONREACTIVE NONREACTIVE [facility] Comment: Antibodies to HCV not detected; does not exclude early acute HCV infection. 07/21/2019 9:00 AM EST us Juana Adkins MD HISTORICAL/NON ORDERA BLE LABS Final Result Performing Organization Address [facility] Co de Phone Number [facility] [address] * HIV AB/AG (07/21/2019 9:00 AM [...] of detection of this assay. The [place] [facility] HIV Ag/Ab Combo assay result and supplemental assay results should be interpreted in conjunction with the patient's clinical presentation, history and other laboratory results. If the results are inconsistent with clinical evidence, additional testing is suggested to confirm the result. 07/21/2019 9:00 AM EST us Juana Adkins MD HISTORICAL/NON ORDERA BLE LABS Final Result [facility] [address] from Last 3 Months or Most Recently Relevant to Health Maintenance Insurance [facility] < [address] [place] [phone] Care Teams Test Design Engineer Relationship Specialty Start Date End Date Juana Johnson MD [address] [place] [phone] PCP - General Family Medicine 08/12/18
== END 2025-03-23 13:32 | disposition home or self-care (01) ==
LOC: HO.HOS 12:48
PROVIDERS: PCP Internal Medicine; Visit Provider Orthopaedic Surgery
DX: S62.633B Displaced fracture of distal phalanx of left middle finger, initial encounter for open fracture (principal); E11.9 Type 2 diabetes mellitus without complications
CPT/HCPCS: 99213

== ENCOUNTER → 2025-03-23 12:50 | Outpatient (BNV) | payer OTHER, SELFPAY | PROVIDERS: Visit Provider Radiology Diagnostic Radiology | DX: M79.642 Pain in left hand (principal) | CPT/HCPCS: 73130 ==

== ENCOUNTER 2025-03-30 14:13 | Outpatient (REF) | payer OTHER, SELFPAY ==
--- NOTE | ~2025-03-30 | US_ITS ---
EXAMINATION: US RETROPERITONEAL LIMITED (RENAL ONLY) CLINICAL INFORMATION: Microscopic hematuria.. COMPARISON: None available. TECHNIQUE: Real-time imaging of the kidneys. FINDINGS: RIGHT KIDNEY: 10.5 x 4.9 x 5.8 cm (SAG x AP x TRV). The kidney is normal in size, contour, and echogenicity. Renal cortical thickness is normal. No calculi or suspicious focal parenchymal lesions. No hydronephrosis. There are multiple small simple cysts, largest measuring 1.4 x 1.0 x 1.3 cm. LEFT KIDNEY: 11.3 x 5.3 x 6.0 cm (SAG x AP x TRV). The kidney is normal in size, contour, and echogenicity. Renal cortical thickness is normal. No calculi or suspicious focal parenchymal lesions. No hydronephrosis. There are multiple small simple cysts, the largest measuring 3.1 x 3.0 x 3.8 cm. US/US renal BI IMPRESSION: 1. Bilateral renal cysts. 2. Otherwise normal examination.. Electronically signed by: Micah Turcios MD 03/30/2025 03:00 PM EDT
--- OUTSIDE RECORDS SUMMARY | 2025-03-30 15:28 | XMS_ITS | Encounter Summary ---
Author Organization [employer] Address [address] [facility] [address] [place] [address] Care Team Providers Care Perfume And Toilet Water Maker Name Role Phone Juana Johnson MD Primary Care Provide r Encounter Details Date Type Department Care Team ([facility] Contact Info) Description 03/30/2025 Orders Only [facility] External Provider, [facility] Social History Tobacco Use Types Packs/Day Years [...] 10:00 AM EDT Office Visit [facility] OPTOMETRY [address] [place] [address] Mauricio, Prema, OD [address] [place] [address] documented as of this encounter Procedures Procedure Name Priority Date/Time Associated Diagnosis Comments US RENAL COMPLETE Routine 03/30/2025 2:3 2 PM EDT documented in this encounter Results * US Renal Complete (03/30/2025 2:32 PM EDT) Anatomical Region Laterality Modality Kidney Ultrasound 03/30/2025 2:32 PM EDT Narrative 03/30/2025 3:02 PM EDT [address] [address] Ultrasound Report Signed Patient: Elton Nation MR#: [id number] : 1975 Acct:[id number] Age/Sex: 49 / M ADM Date: 03/30/25 Loc: HO.US Attending Dr: Gary Bains MD Ordering Physician: Gary Bains MD Date of Service: 03/30/25 Procedure(s): US renal BI Accession Number(s): [id number] cc: Gary Bains MD; Juana Johnson MD Reason for Exam: R31.29 - Other microscopic hematuria EXAMINATION: US RETROPERITONEAL LIMITED (RENAL ONLY) CLINICAL INFORMATION: Microscopic hematuria.. COMPARISON: None available. TECHNIQUE: Real-time imaging of the kidneys. FINDINGS: RIGHT KIDNEY: 10.5 x 4.9 x 5.8 cm (SAG x AP x TRV). The kidney is normal in size, contour, and echogenicity. Renal cortical thickness is normal. No calculi or suspicious focal parenchymal lesions. No hydronephrosis. There are multiple small simple cysts, largest measuring 1.4 x 1.0 x 1.3 cm. LEFT KIDNEY: 11.3 x 5.3 x 6.0 cm (SAG x AP x TRV). The kidney is normal in size, contour, and echogenicity. Renal cortical thickness is normal. No calculi or suspicious focal parenchymal lesions. No hydronephrosis. There are multiple small simple cysts, the largest measuring 3.1 x 3.0 x 3.8 cm. US/US renal BI IMPRESSION: 1. Bilateral renal cysts. 2. Otherwise normal examination.. Electronically signed by: Micah Turcios MD 03/30/2025 03:00 PM EDT RP Dictated By: Micah Turcios MD Signed By: <Electronically signed by Micah Turcios MD in OV> 03/30/25 1500 DD/ 1432 TD/TT: 03/30/25 1440 Motorcycle Subassembler: Procedure Note Donotuseinterpreter, Image - 03/30/2025 [place] [address] Ultrasound Report Signed Patient: Elton NationMR#: [id number] : 1975Acct:[id number] Age/Sex: 49 / MADM Date: 03/30/25 Loc: HO.US Attending Dr: Gary Bains MD Ordering Physician: Gary Bains MD Date of Service: 03/30/25 Procedure(s): US renal BI Accession Number(s): [id number] cc: Gary Bains MD; Juana Johnson MD Reason for Exam: R31.29 - Other microscopic hematuria EXAMINATION: US RETROPERITONEAL LIMITED (RENAL ONLY) CLINICAL INFORMATION: Microscopic hematuria.. COMPARISON: None available. TECHNIQUE: Real-time imaging of the kidneys. FINDINGS: RIGHT KIDNEY: 10.5 x 4.9 x 5.8 cm (SAG x AP x TRV). The kidney is normal in size, contour, and echogenicity. Renal cortical thickness is normal. No calculi or suspicious focal parenchymal lesions. No hydronephrosis. There are multiple small simple cysts, largest measuring 1.4 x 1.0 x 1.3 cm. LEFT KIDNEY: 11.3 x 5.3 x 6.0 cm (SAG x AP x TRV). The kidney is normal in size, contour, and echogenicity. Renal cortical thickness is normal. No calculi or suspicious focal parenchymal lesions. No hydronephrosis. There are multiple small simple cysts, the largest measuring 3.1 x 3.0 x 3.8 cm. US/US renal BI IMPRESSION: 1. Bilateral renal cysts. 2. Otherwise normal examination.. Electronically signed by: Micah Turcios MD 03/30/2025 03:00 PM EDT Dictated By: Micah Turcios MD Signed By: <Electronically signed by Micah Turcios MD in OV> 03/30/25 1500 DD/ 1432 TD/TT: 03/30/25 1440 Motorcycle Subassembler: [facility] External Provider IMG US PROCEDURES Final Result documented in this encounter Visit Diagnoses Not on filedocumented in this encounter Additional Health Concerns Assessment Noted Time PHQ-9 Depression Total Score: 0 08/04/19 25 2:17 PM EST documented as of this encounter Care Teams Perfume And Toilet Water Maker Relationship Specialty Start Date End Date Juana Johnson MD [address] [place] [phone] PCP - General Family Medicine 08/12/18 documented as of this encounter
--- OUTSIDE RECORDS SUMMARY | 2025-03-30 15:28 | XMS_ITS | Clinical Summary ---
Author Organization [employer] Address [address] [facility] 7[address] [place] [address] Care Team Providers Care Universal Grinder Operator Name Role Phone Juana Johnson MD Primary [...] 21 Active ergocalciferol (Vitamin D-2) 1.25 MG (50326 UT) capsule take 1 capsule by oral [...] complication, without long-term current use of insulin ([facility]) 1 each 2 times daily. 100 each 3 12/24/19 24 Active colchicine 0.6 MG tabletIndication s:Articular gout Take 1 tablet (0.6 mg) by mouth Once per day. 60 tablet 6 12/24/19 24 Active Lancets miscIndications: Type 2 diabetes mellitus without complication, without long-term current use of insulin ([facility]) Use to test blood sugar 2 [...] complication, without long-term current use of insulin ([facility]) Use to test blood sugar 1 times daily 100 each 1 08/04/19 25 026 Active Alcohol Swabs 70 % padsIndications: Type 2 diabetes mellitus without complication, without long-term current use of insulin ([facility]) Use to test blood sugar 1 times daily 100 each 1 08/04/19 25 Active Blood Glucose Monitoring Suppl (FreeStyle Eola Lite) w/Device kitIndications:T ype 2 diabetes mellitus without complication, without long-term current use of insulin ([facility]) Use to test blood sugar 1 times daily 1 kit 08/04/19 25 Active losartan (Cozaar) 100 MG tablet Take 1 tablet (100 mg) by mouth in the morning. 90 tablet 3 08/20/19 25 026 Active melatonin 5 MG tabletIndication s:Primary insomnia [...] or split. 30 tablet 11 02/27/20 25 026 Active amLODIPine (Norvasc) 5 MG tabletIndication s:Essential hypertension TAKE 1 TABLET BY MOUTH EVERY DAY 90 tablet 3 03/11/20 25 Active atorvastatin (Lipitor) 20 MG tabletIndication s:Essential hypertension TAKE 1 TABLET IN THE EVENING EVERY DAY 90 tablet 3 03/11/20 25 Active TRUEplus Lancets 33G miscIndications: Type 2 diabetes mellitus without complication, without long-term current use of insulin (CMS/HCC) USE DIRECTED TO TEST BLOOD SUGAR EVERY DAY 100 each 4 03/11/20 25 Active atorvastatin (Lipitor) 20 MG tabletIndication s:Essential hypertension Take 1 tablet (20 mg) by mouth Once per day. 90 tablet 3 12/24/19 24 025 Discontinued amLODIPine (Norvasc) 5 MG tabletIndication s:Essential hypertension Take 1 tablet (5 mg) by mouth Once per day. 90 tablet 3 12/24/19 24 025 Discontinued Lancets miscIndications: Type 2 diabetes mellitus without complication, without long-term current use of insulin ([facility]) Use to test blood sugar 1 times daily 100 each 1 08/04/19 25 025 Discontinued Active Problems Problem Noted Date Diagnosed [...] Encounters Date Type Department Care Team Description 03/30/2025 Orders Only [facility] External Provider, [facility] 03/15/2025 Orders Only GENERIC EXTERNAL DATA DEPARTMENT Provider, Generic External Data 03/11/[address] [facility] [address] [place] [address] Juana Johnson MD Essential hypertension; Type 2 diabetes mellitus without complication, without long-term current use of insulin ([facility]) 03/03/2025 Orders Only [facility] External Provider, [facility] 02/26/[address] [facility] [address] [place] [address] Juana Johnson MD Type 2 diabetes mellitus without complication, without long-term current use of insulin ([facility]) 01/17/[address] [facility] [address] [place] [address] Juana Johnson MD Essential hypertension 01/07/2025 Orders [...] Description 04/26/2025 10:00 AM EDT Office Visit [facility] [address] [place], [place] [phone] Mauricio, Prema, OD [address] [place] [address] Health Maintenance Due Date Last Done Comments [...] Screening 10/23/2025 10/23/2024 Eye Exam 11/17/2025 11/18/2023, 042 08/2023, 11/18/2023, Additional history exists Colorectal Cancer Screening [...] COMPLETE Routine 03/30/2025 2:3 2 PM EDT GLUCOSE, WHOLE BLOOD Routine 03/15/2025 9:09 AM [...] Recently Relevant to Health Maintenance Results * US Renal Complete (03/30/2025 2:32 PM EDT) Anatomical Region Laterality Modality Kidney Ultrasound 03/30/2025 2:32 PM EDT Narrative 03/30/2025 3:02 PM EDT [place] [address] Ultrasound Report Signed Patient: Elton Nation MR#: [id number] : 1975 Acct:[id number] Age/Sex: 49 / M ADM Date: 03/30/25 Loc: HO.US Attending Dr: Gary Bains MD Ordering Physician: Gary Bains MD Date of Service: 03/30/25 Procedure(s): US renal BI Accession Number(s): [id number] cc: Gary Bains MD; Juana Johnson MD [...] 03/30/25 1500 DD/ 1432 TD/TT: 03/30/25 1440 Motor Mechanic: Procedure Note Donotuseinterpreter, Image - 03/30/2025 [place] [address] Ultrasound Report Signed Patient: Joelle Nation#: [id number] : 1975Acct:[id number] Age/Sex: 49 / MADM Date: 03/30/25 Loc: HO.US Attending Dr: Gary Bains MD Ordering Physician: Gary Bains MD Date of Service: 03/30/25 Procedure(s): US renal BI Accession Number(s): [id number] cc: Gary Bains MD; Juana Johnson MD [...] 03/30/25 1500 DD/ 1432 TD/TT: 03/30/25 1440 Motor Mechanic: us [facility] External Provider IMG US PROCEDURES Final Result * (ABNORMAL) Glucose, Whole Blood (03/15/2025 9:09 AM EDT) Glucose, Whole Blood 134(H) 60 - 115 mg/dL [facility] Comment:METER #: [id number] 03/15/2025 9:09 AM EDT 03/15/2025 9:23 AM EDT Generic External Data Provider LAB BLOOD ORDERAB LES Final Result [facility] [address] [place] [phone] * XR Fingers 2+ Views Left (03/03/2025 2:30 PM EDT) Anatomical Region Laterality Modality Upper Extremities, Fingers Left Radio graphic Imaging 03/03/2025 2:30 PM EDT Narrative 03/03/2025 2:50 PM EDT [address] [address] XRay Report Signed Patient: Elton Nation MR#: [id number] : 1975 Acct:[id number] Age/Sex: 49 / M ADM Date: 03/03/25 Loc: HO.ED Attending Dr: Ordering Physician: Emily Baker Date of Service: 03/03/25 Procedure(s): XR finger LT min 2V Accession Number(s): [id number] cc: Juana Johnson MD; Emily Baker EXAMINATION: [...] 03/03/25 1447 DD/ 1430 TD/TT: 03/03/25 1437 Motor Mechanic: Procedure Note Donotuseinterpreter, Image - 03/03/[address] [address] XRay Report Signed Patient: Elton NationMR#: [id number] : 1975Acct:[id number] Age/Sex: 49 / MADM Date: 03/03/25 Loc: HO.ED Attending Dr: Ordering Physician: Emily Baker Date of Service: 03/03/25 Procedure(s): XR finger LT min 2V Accession Number(s): [id number] cc: Juana Johnson MD; Emily Baker EXAMINATION: [...] 03/03/25 1447 DD/ 1430 TD/TT: 03/03/25 1437 Motor Mechanic: [facility] External Provider IMG XR PROCEDURES Final Result * Cytopath-cell enhanced (01/07/2025 4:51 PM EDT) 01/07/2025 4:51 PM EDT 01/08/2025 11:30 AM EDT [facility] - 01/11/2025 11:14 AM EDT ----- ------- Name: Elton Nation Age/Sex: 49/M : 1975 [id number]#: [id number] Attend Dr: Bindu Jung [facility]- Re01/07/25 Status: [facility] REF Location: [facility] Disch: ----- ------- SPEC : [id number] RECD: 01/08/25-1129 STATUS: ALISIA GHOSH NUM: [id number] JENIFER: 01/07/25-[address] [facility] [address]: Bindu Jung [facility]- ENTERED: 01/08/25-134 SP TYPE: Cytology OTHR DR: [...] developed and their performance characteristics determined by [facility]. They have not been cleared or approved by the U.S. Food and Drug Administration (FDA). However, the FDA has determined that such clearance or approval is not necessary. This laboratory is certified under the Clinical Laboratory Improvement Amendments of 1988 (CLIA) as qualified to perform high complexity clinical laboratory testing. Copies To: Juana Johnson MD [address] [address] Bindu Jung [facility] [address] [place] [address] Dr. Rainey [address] [place] [address] [email or web address] CONTINUED ON NEXT PAGE ----- ------- Name: Elton Nation Age/Sex: 49/M : 1975 Unit#: [id number] Attend Dr: Bindu Jung [facility] Re01/07/25 Status: DEP REF Location: HO.LNP Disch: ----- ------- SPEC : [id number] RECD: 01/08/25-113 STATUS: ALISIA GHOSH NUM: [id number] JENIFER: 01/07/25-[address] [facility] [address]: Bindu Jung [facility] ENTERED: 01/08/25-7585 SP TYPE: Cytology OTHR DR: Juana Johnson MD ORDERED: Cyto-enhanced ----- ------- Signed (signature on file) Иван Jimenez MD 01/11/25 1114 ----- ------- END OF REPORT Generic External Data Provider LAB CYTOLOGY ORDE RABLES Final Result Performing Organization Address [facility] de Phone Number [facility] [address] [place] [phone] * (ABNORMAL) POCT HGB A1C (10/23/2024 11:25 AM EDT) Hemoglobin A1C 6.7(A) 4.0 - 6.0 % QC Media Lot # [id number] Lot# Expiration Date 890 Blood 10/23/2024 11:2 5 AM EDT Juana Adkins MD POINT OF CARE TEST EN TER/EDIT ORDERABLES Final Result * (ABNORMAL) Albumin, Random Urine W/Creatinine (08/20/2024 9:52 AM EST) Creatinine, Urine 364.36 mg/dL [facility] Microalbumin Urine 1,262.0 mg/L H [facility] Microalbum Creatinine Ratio Ur 346.3(H) <30 ug/mg cr [facility] Comment:Albumin/Creatinine R atio Reference Ranges: Normal: < 30 ug/mg creatinine Microalbuminuria: 30 - 300 ug/mg creatinineClinical Albuminuria: > 300 ug/mg creatinine Urine (Urine, Random) 08/20/2024 9:52 AM EST 08/20/2024 11:27 AM EST Juana Adkins MD LAB URINE ORDERABLES Final Result Performing Organization Address [facility] Co de Phone Number [facility] [address] [place] [phone] * (ABNORMAL) Lipid Panel, Standard (08/20/2024 9:52 AM EST) Triglycerides 251(H) <150 mg/dL [facility] Comment:Desirable Triglyceri de: less than 150 mg/dLBorderline High Triglyceride 150-199 mg/dLHigh Triglyceride: 200-499 mg/dLVery High Triglyceride: greater than or equal to 5OO mg/dL Cholesterol 152 <200 mg/dL [facility] Comment:Desirable Cholestero l: less than 200 mg/dLBorderline High Cholesterol: 200-239 mg/dLHigh Cholesterol: greater than 239 mg/dL LDL Cholesterol Calculated 61 <100 mg/dL [facility] Comment:Desirable LDL: less than 100 mg/dLNear Optimal/Above Optimal LDL: 110- 129 mg/dLBorderline High LDL: 130-159 mg/dLHigh LDL: 160-189 mg/dLVery High LDL: greater than or equal to 190 mg/dL HDL Cholesterol 41 >40 mg/dL [facility] Comment:Desirable HDL: great er than 40 mg/dL Note: This HDL assay may give artificially low results in patients with liver disease. Blood Venous blood specimen / Unknown 08/20/2024 9:52 AM EST 08/20/2024 11:20 AM EST Juana Adkins MD LAB BLOOD ORDERABLES Final Result [facility] [address] [place] [phone] * Cologuard?? colon cancer screening (11/06/2023 10:00 AM EDT) Cologuard Result Negative Negative 11/13/19 8:34 AM EDT [facility] (CLIA #:[id number]) Comment: NEGATIVE TEST RESULT. A negative Cologuard [...] Morales et al, N Engl J Med 2014;370(14):6696-2221) The normal value (reference range) for this assay is negative. COLOGUARD RE-SCREENING RECOMMENDATION: Periodic colorectal cancer screening is an important part of preventive healthcare for asymptomatic individuals at average risk for colorectal cancer. Following a negative Cologuard result, the [place] [employer] and U.S. Multi-Society Task Force screening guidelines recommend a Cologuard re-screening interval of 3 years. References: [place] [employer] Guideline for Colorectal Cancer Screening: https://www.cancer.org/cancer/cuidk-qixvep-chpoyg/gsilhuxat-sxutmrxsh-tpcjpgs/ac s-rec ommendations.html.; Del DK, Patience CAVAZOS, Matthew ChavesK, Colorectal Cancer Screening: Recommendations for Physicians and Patients from the U.S. Multi-Society Task Force on Colorectal Cancer Screening , Am J Gastroenterology 2017; 112:6818-0133. TEST DESCRIPTION: Composite algorithmic analysis of stool [...] (Tania Phan al, N Engl J Med 2014;370(14):9538-1174.) Cologuard may produce a false negative or false positive result (no colorectal cancer or precancerous polyp present at colonoscopy follow up). A negative Cologuard test result does not guarantee the absence of CRC or advanced adenoma (pre-cancer). The current Cologuard screening interval is every 3 years. ([place] [employer] and U.S. Multi-Society Task Force). Cologuard performance data in a 10,000 patient pivotal study using colonoscopy as the reference method can be accessed at the following location: www.iTiffin.Voyat/results. Additional description of the Cologuard test process, warnings and precautions can be found at www.cologuard.com. Stool specimen (specimen) 11/06/2023 10:00 AM EDT 11/07/2023 2:00 PM EDT Juana Adkins MD LAB MOLECULAR DIAGNOS TICS ORDERABLES Final Result Performing Organization Address City/[facility]/ZIP Co de Phone Number [facility] (CLIA #:[id number]) [address] [place] [phone], * HEPATITIS C ANTIBODY RFLX (07/21/2019 9:00 AM EST) [facility] HEPATITIS C ANTIBODY NONREACTIVE NONREACTIVE [facility] Comment: Antibodies to HCV not detected; does not exclude early acute HCV infection. 07/21/2019 9:00 AM EST us Juana Adkins MD HISTORICAL/NON ORDERA BLE LABS Final Result Performing Organization Address [facility] Co de Phone Number [facility] [address] * HIV AB/AG (07/21/2019 9:00 AM EST) Pathologist [facility] HIV AG/AB NONREACTIVE NR [facility] ON LAB [...] of detection of this assay. The [employer] Specialist HIV Ag/Ab Combo assay result and supplemental assay results should be interpreted in conjunction with the patient's clinical presentation, history and other laboratory results. If the results are inconsistent with clinical evidence, additional testing is suggested to confirm the result. 07/21/2019 9:00 AM EST Juana Adkins MD HISTORICAL/NON ORDERA BLE LABS Final Result Performing Organization Address City/State/[facility] Co de Phone Number [facility] Formerly [facility], [facility] from Last 3 Months or Most Recently Relevant to Health Maintenance Insurance [facility] CARE < [address] [place] [phone] Care Teams Universal Grinder Operator Relationship Specialty Start Date End Date Juana Johnson MD [address] [place] [phone] PCP - General Family Medicine 08/12/18
== END 2025-03-30 14:14 | disposition home or self-care (01) ==
LOC: HO.US 14:13
PROVIDERS: PCP Internal Medicine; Visit Provider Internal Medicine Hypertension Specialist
DX: R31.29 Other microscopic hematuria (principal); R80.9 Proteinuria, unspecified
CPT/HCPCS: 76775

== ENCOUNTER → 2025-03-30 14:14 | Outpatient (BNV) | payer OTHER, SELFPAY | PROVIDERS: PCP Internal Medicine; Visit Provider Radiology Diagnostic Radiology | DX: N28.1 Cyst of kidney, acquired (principal) | CPT/HCPCS: 76775 ==

== ENCOUNTER 2025-03-31 10:23 | Outpatient (AMB) | payer OTHER, SELFPAY ==
--- NOTE | 2025-03-31 10:34 | MHC.OFFVIS ---
Vital Signs 03/31/25 10:35 Height 5 ft 10 in Weight 245 lb BMI 35.2 Intake Visit Reasons: P/O left Middle finger I&D 03/15/25 AR Intake Note: Elton 49 yr old male presents today for his P/O visit for his left middle finger I&D Dr Han on 03/15/25. Dressing removed in office. Patient is here for a wound check. States he has no pain, he has continue to do daily dressing changes and is ready to have his sutures removed. Last A1C was done 2 months ago : A1C -6.5 per patient. Sharepoint Trainer Name: Manjula ENG Allergies No Known Allergies Allergy (Verified 03/31/25 10:36) HPI HPI P/O left Middle finger I&D 03/15/25 AR: Details: Elton is a 49 year old right hand dominant man who presents S/P let middle finger I&D of open left middle finger distal phalanx fracture, DOS: 03/15/25. He is S/P left middle finger near amputation with an area of skin loss over the volar aspect of the pad & open distal phalanx tuft fracture, DOI: 03/03/25, crushing his finger with a car david in his garage. He says he is doing well and minimal pain. He has completed his course of Abx & continues with daily dressing changes at home. [facility] Medical History Hypertension Knee arthropathy Anemia Social History Household Members: Spouse and Children Are you a primary pediatric acute care unit nurse to a significant other at home: No Do you presently have visiting nurse or other home services: No Alcohol intake: never Patient Tobacco Use Status: Never used Tobacco Second Hand Smoke Exposure: No Current occupational status: unemployed Current occupation: rt handed Physical Exam Vital Signs: BMI result Body Mass Index 35.2 Const General: no acute distress and alert Orientation/consciousness: patient oriented x3 Neuro General: patient oriented x3 Extrem Other: The patient was alert oriented and in no acute distress The incision is healing well with no erythema drainage or evidence of infection. Sutures removed today The wound is narrowing, and he is forming some nice granulation tissue. He is also beginning some re-epithelialization. Good flexion at the MCP and reasonable flexion at the PIP joint Sensation is intact Cap refill is brisk Radiographs: 3 views of the left hand from 03/23/25 were reviewed by me today in clinic. They show a middle finger open distal phalanx fracture with satisfactory fracture alignment. Psych Appearance: grossly normal Affect: normal affect Attitude: cooperative Assessment & Plan Assessment & Plan (1) Open fracture of distal phalanx of left middle finger: Code(s): S62.633B - Displaced fracture of distal phalanx of left middle finger, initial encounter for open fracture Category: Medical (2) Diabetes mellitus: Code(s): E11.9 - Type 2 diabetes mellitus without complications Category: Medical Plan Assessment & Plan: 1. Left middle finger near amputation with an area of skin loss over the volar aspect of the pad 2. Left middle finger open distal phalanx tuft fracture S/P I&D, DOS: 03/15/25 From a crush injury, DOI: 03/03/25 The patient appears to be doing well post-operatively I educated him about the post-operative course He will continue to perform daily wound care I discussed activity modifications He will perform gentle ROM exercises at home He may start washing the wound with soap and water in the shower or sink, but should avoid any underwater activities. He will follow up in 3 weeks with X-rays, 3V L Scribed for Sonja Han MD by Con Vitale, medical billing associate, on 03/31/25 at 11:00 AM, EST. Coding Level of Care Code Global (27292) Diagnoses Open fracture of distal phalanx of left middle finger S62.633B Diabetes mellitus E11.9
[2025-03-31 10:35] VITALS: BMI 35.2
--- OUTSIDE RECORDS SUMMARY | 2025-03-31 12:11 | XMS_ITS | Clinical Summary ---
Author Organization [employer] Address [address] [place] [address] Care Team Providers Care Assistant [employer] Of Content [employer] Delivery Name Role Phone Juana Johnson MD Primary [...] 21 Active ergocalciferol (Vitamin D-2) 1.25 MG (42474 UT) capsule take 1 capsule by oral [...] complication, without long-term current use of insulin ([facility]) 1 each 2 times daily. 100 each 3 12/24/19 24 Active colchicine 0.6 MG tabletIndication s:Articular gout Take 1 tablet (0.6 mg) by mouth Once per day. 60 tablet 6 12/24/19 24 Active Lancets miscIndications: Type 2 diabetes mellitus without complication, without long-term current use of insulin ([facility]) Use to test blood sugar [...] complication, without long-term current use of insulin ([facility]) Use to test blood sugar 1 times daily 100 each 1 08/04/19 25 026 Active Alcohol Swabs 70 % padsIndications: Type 2 diabetes mellitus without complication, without long-term current use of insulin ([facility]) Use to test blood sugar 1 times daily 100 each 1 08/04/19 25 Active Blood Glucose Monitoring Suppl (FreeStyle Woodstock Lite) w/Device kitIndications:T ype 2 diabetes mellitus without complication, without long-term current use of insulin ([facility]) Use to test blood sugar [...] complication, without long-term current use of insulin ([facility]) Use to test blood sugar [...] Department Care Team Description 03/30/2025 Orders Only [facility] External Provider, [facility] 03/15/2025 Orders Only GENERIC EXTERNAL DATA DEPARTMENT Provider, Generic External Data 03/11/2025 Refill [facility] [address] [place] [address] Juana Johnson MD Essential hypertension; Type 2 diabetes mellitus without complication, without long-term current use of insulin ([facility]) 03/03/2025 Orders Only [facility] External Provider, [facility] 02/26/2025 Refill [facility] [address] [place] [address] Juana Johnson MD Type 2 diabetes mellitus without complication, without long-term current use of insulin ([facility]) 01/17/2025 Refill [facility] [address] [place] [address] Juana Johnson MD Essential hypertension 01/07/2025 Orders [...] Description 04/26/2025 10:00 AM EDT Office Visit [facility] OPTOMETRY [address] [place], [place] [phone] Mauricio, Prema, OD [address] [place] [address] Health Maintenance Due Date Last Done Comments CT Colonography 1975 Colonoscopy 1975 FIT 1975 FOBT 1975 Sigmoidoscopy 1975 Alcohol/Substance Use Screening 1985 Family Planning (PISQ) 1988 Hepatitis B Vaccines (1 of 3 - 19+ 3-dose series) 1992 Zoster Vaccines (1 of 2) 2023 Diabetes: Foot Exam 12/11/2023 12/10/2022, SDOH Screening 12/23/2024 12/24/2023 COVID-19 Vaccine ( season) 2025 09/25/2023, 07/13/2021, 11/28/2020, Additional history exists Influenza Vaccine (#1) 2025 08/04/2024, 2021 Diabetes: [...] PM EDT Narrative 03/30/2025 3:02 PM EDT [place] [address] Ultrasound Report Signed Patient: Elton Nation MR#: [id number] : 1975 Acct:[id number] Age/Sex: 49 / M ADM Date: 03/30/25 Loc: HO.US Attending Dr: Gary Bains MD Ordering Physician: Gary Bains MD Date of Service: 03/30/25 Procedure(s): US renal BI Accession Number(s): [id number] cc: Gary Bains MD; Juana Johnson MD [...] 03/30/25 1500 DD/ 1432 TD/TT: 03/30/[address]: Procedure Note Donotuseinterpreter, Image - 03/30/2025 [place] [address] Ultrasound Report Signed Patient: Joelle Nation#: [id number] : 1975Acct:[id number] Age/Sex: 49 / MADM Date: 03/30/25 Loc: HO.US Attending Dr: Gary Bains MD Ordering Physician: Gary Bains MD Date of Service: 03/30/25 Procedure(s): US renal BI Accession Number(s): [id number] cc: Gary Bains MD; Juana Johnson MD [...] 03/30/25 1500 DD/ 1432 TD/TT: 03/30/[address]: us [facility] External Provider IMG US PROCEDURES Final Result * (ABNORMAL) Glucose, Whole Blood (03/15/2025 9:09 AM EDT) Glucose, Whole Blood 134(H) 60 - 115 mg/dL [facility] Comment:METER #: [id number] 03/15/2025 9:09 AM EDT 03/15/2025 9:23 AM EDT Generic External Data Provider LAB BLOOD ORDERAB LES Final Result [facility] [address] [place] [phone] * XR Fingers 2+ Views Left (03/03/2025 2:30 PM EDT) Anatomical Region Laterality Modality Upper Extremities, Fingers Left Radio graphic Imaging 03/03/2025 2:30 PM EDT Narrative 03/03/2025 2:50 PM EDT [address] [address] XRay Report Signed Patient: Elton Nation MR#: [id number] : 1975 Acct:[id number] Age/Sex: 49 / M ADM Date: 03/03/25 Loc: HO.ED Attending Dr: Ordering Physician: Emily Baker Date of Service: 03/03/25 Procedure(s): XR finger LT min 2V Accession Number(s): [id number] cc: Juana Johnson MD; Emily Baker EXAMINATION: [...] 03/03/25 1447 DD/ 1430 TD/TT: 03/03/[address]: Procedure Note Donotuseinterpreter, Image - 03/03/[address] [address] XRay Report Signed Patient: Elton NationMR#: [id number] : 1975Acct:[id number] Age/Sex: 49 / MADM Date: 03/03/25 Loc: HO.ED Attending Dr: Ordering Physician: Emily Baker Date of Service: 03/03/25 Procedure(s): XR finger LT min 2V Accession Number(s): [id number] cc: Juana Johnson MD; Emily Baker EXAMINATION: [...] Marroquin MD Signed By: <Electronically signed by oSy Marroquin MD in OV> 03/03/25 1447 DD/ 1430 TD/TT: 03/03/[address]: [facility] External Provider IMG XR PROCEDURES Final Result * Cytopath-cell enhanced (01/07/2025 4:51 PM EDT) 01/07/2025 4:51 PM EDT 01/08/2025 11:30 AM EDT [facility] - 01/11/2025 11:14 AM EDT ----- ------- Name: Elton Nation Age/Sex: 49/M : 1975 [id number] Unit#: [id number] Attend Dr: Bindu Jung [facility]- Re01/07/25 Status: [facility] REF Location: [facility] Disch: ----- ------- SPEC : [id number] RECD: 01/08/25-1129 STATUS: ALISIA GHOSH NUM: [id number] JENIFER: 01/07/25-1650 [facility] DR: Bindu Jung [facility]- ENTERED: 01/08/25-134 SP TYPE: Cytology OTHR [...] developed and their performance characteristics determined by [facility]. They have not been cleared or approved by the U.S. Food and Drug Administration (FDA). However, the FDA has determined that such clearance or approval is not necessary. This laboratory is certified under the Clinical Laboratory Improvement Amendments of 1988 (CLIA) as qualified to perform high complexity clinical laboratory testing. Copies To: Juana Johnson MD [address] [address] Bindu Jung [facility] [address] [place] [address] Dr. Rainey [address] [place] [address] [email or web address] CONTINUED ON NEXT PAGE ----- ------- Name: Elton Nation Age/Sex: 49/M : 1975 Unit#: [id number] Attend Dr: Bindu Jung [facility] Re01/07/25 Status: DEP REF Location: HO.LNP Disch: ----- ------- SPEC : [id number] RECD: 01/08/25-113 STATUS: ALISIA GHOSH NUM: [id number] JENIFER: 01/07/25-16[address] [facility] DR: Bindu Jung [facility] ENTERED: 01/08/25-4315 SP TYPE: Cytology OTHR DR: Juana Johnson MD ORDERED: Cyto-enhanced ----- ------- Signed (signature on file) Иван Jimenez MD 01/11/25 1114 ----- ------- END OF REPORT Generic External Data Provider LAB CYTOLOGY ORDE RABLES Final Result Performing Organization Address [facility] de Phone Number [facility] [address] [place] [phone] * (ABNORMAL) POCT HGB A1C (10/23/2024 11:25 AM EDT) Hemoglobin A1C 6.7(A) 4.0 - 6.0 % QC Media Lot # [id number] Lot# Expiration Date 456 Blood 10/23/2024 11:2 5 AM EDT Juana Adkins MD POINT OF CARE TEST EN TER/EDIT ORDERABLES Final Result * (ABNORMAL) Albumin, Random Urine W/Creatinine (08/20/2024 9:52 AM EST) Creatinine, Urine 364.36 mg/dL [facility] Microalbumin Urine 1,262.0 mg/L H [facility] Microalbum Creatinine Ratio Ur 346.3(H) <30 ug/mg cr [facility] Comment:Albumin/Creatinine R atio Reference Ranges: Normal: < 30 ug/mg creatinine Microalbuminuria: 30 - 300 ug/mg creatinineClinical Albuminuria: > 300 ug/mg creatinine Urine (Urine, Random) 08/20/2024 9:52 AM EST 08/20/2024 11:27 AM EST Juana Adkins MD LAB URINE ORDERABLES Final Result Performing Organization Address [facility] Co de Phone Number [facility] [address] [place] [phone] * (ABNORMAL) Lipid Panel, Standard (08/20/2024 9:52 AM EST) Triglycerides 251(H) <150 mg/dL [facility] Comment:Desirable Triglyceri de: less than 150 mg/dLBorderline High Triglyceride 150-199 mg/dLHigh Triglyceride: 200-499 mg/dLVery High Triglyceride: greater than or equal to 5OO mg/dL Cholesterol 152 <200 mg/dL [facility] Comment:Desirable Cholestero l: less than 200 mg/dLBorderline High Cholesterol: 200-239 mg/dLHigh Cholesterol: greater than 239 mg/dL LDL Cholesterol Calculated 61 <100 mg/dL [facility] Comment:Desirable LDL: less than 100 mg/dLNear Optimal/Above Optimal LDL: 110- 129 mg/dLBorderline High LDL: 130-159 mg/dLHigh LDL: 160-189 mg/dLVery High LDL: greater than or equal to 190 mg/dL HDL Cholesterol 41 >40 mg/dL [facility] Comment:Desirable HDL: great er than 40 mg/dL Note: This HDL assay may give artificially low results in patients with liver disease. Blood Venous blood specimen / Unknown 08/20/2024 9:52 AM EST 08/20/2024 11:20 AM EST Juana Adkins MD LAB BLOOD ORDERABLES Final Result [facility] [address] [place] [phone] [phone] * Cologuard?? colon cancer screening (11/06/2023 10:00 AM EDT) Cologuard Result Negative Negative 11/13/19 8:34 AM EDT [facility] (CLIA #:[id number]) Comment: NEGATIVE TEST RESULT. A negative Cologuard [...] Morales et al, N Engl J Med 2014;370(14):4622-4149) The normal value (reference range) for this assay is negative. COLOGUARD RE-SCREENING RECOMMENDATION: Periodic colorectal cancer screening is an important part of preventive healthcare for asymptomatic individuals at average risk for colorectal cancer. Following a negative Cologuard result, the [place] Cancer Society and U.S. Multi-Society Task Force screening guidelines recommend a Cologuard re-screening interval of 3 years. References: [place] [employer] Society Guideline for Colorectal Cancer Screening: https://www.cancer.org/cancer/wlahf-penqrt-wdstgr/lfaqmxuef-fckbavorp-pokvidf/ac s-rec ommendations.html.; Del DK, Patience CAVAZOS, Matthew ChavesK, Colorectal Cancer Screening: Recommendations for Physicians and Patients from the U.S. Multi-Society Task Force on Colorectal Cancer Screening , Am J Gastroenterology 2017; 112:1684-8297. TEST DESCRIPTION: Composite algorithmic analysis of stool [...] (Tania Phan al, N Engl J Med 2014;370(14):0072-1770.) Cologuard may produce a false negative or false positive result (no colorectal cancer or precancerous polyp present at colonoscopy follow up). A negative Cologuard test result does not guarantee the absence of CRC or advanced adenoma (pre-cancer). The current Cologuard screening interval is every 3 years. ([place] Cancer Society and U.S. Multi-Society Task Force). Cologuard performance data in a 10,000 patient pivotal study using colonoscopy as the reference method can be accessed at the following location: www.[employer].Angie's List/results. Additional description of the Cologuard test process, warnings and precautions can be found at www.cologuard.com. Stool specimen (specimen) 11/06/2023 10:00 AM EDT 11/07/2023 2:00 PM EDT Juana Adkins MD LAB MOLECULAR DIAGNOS TICS ORDERABLES Final Result Performing Organization Address City/[facility]/ZIP Co de Phone Number [facility] (CLIA #:[id number]) [address] [place] [phone], * HEPATITIS C ANTIBODY RFLX (07/21/2019 9:00 AM EST) [facility] HEPATITIS C ANTIBODY NONREACTIVE NONREACTIVE [facility] Comment: Antibodies to HCV not detected; does not exclude early acute HCV infection. 07/21/2019 9:00 AM EST us Juana Adkins MD HISTORICAL/NON ORDERA BLE LABS Final Result Performing Organization Address [facility] Co de Phone Number [facility] [address] * HIV AB/AG (07/21/2019 9:00 AM EST) Pathologist [facility] HIV AG/AB NONREACTIVE NR [facility] ON LAB [...] of detection of this assay. The [employer] HIV Ag/Ab Combo assay result and supplemental assay results should be interpreted in conjunction with the patient's clinical presentation, history and other laboratory results. If the results are inconsistent with clinical evidence, additional testing is suggested to confirm the result. 07/21/2019 9:00 AM EST Juana Adkins MD HISTORICAL/NON ORDERA BLE LABS Final Result Performing Organization Address City/State/[facility] Co de Phone Number [facility]ly [facility] [address] from Last 3 Months or Most Recently Relevant to Health Maintenance Insurance [facility] ONE CARE < [address] [place] [phone] Care Teams Assistant Gm Of Content & Delivery Relationship Specialty Start Date End Date Juana Johnson MD [address] [place] [phone] PCP - General Family Medicine 08/12/18
--- OUTSIDE RECORDS SUMMARY | 2025-03-31 12:11 | XMS_ITS | Encounter Summary ---
Author Organization [employer] Address [address] [place] [address] Care Team Providers Care Belting Cutter Name Role Phone Juana Johnson MD Primary Care Provide r Encounter Details Date Type Department Care Team ([facility] Contact Info) Description 03/30/2025 Orders Only [facility] External Provider, [facility] Social History Tobacco Use Types Packs/Day Years [...] Description 04/26/2025 10:00 AM EDT Office Visit [facility] OPTOMETRY [address] [place] [address] Mauricio, Prema, OD [address] [place] [address] documented as of this encounter Procedures Procedure Name Priority Date/Time Associated Diagnosis Comments US RENAL COMPLETE Routine 03/30/2025 2:3 2 PM EDT documented in this encounter Results * US Renal Complete (03/30/2025 2:32 PM EDT) Anatomical Region Laterality Modality Kidney Ultrasound 03/30/2025 2:32 PM EDT Narrative 03/30/2025 3:02 PM EDT [address] [address] Ultrasound Report Signed Patient: Elton Nation MR#: [id number] : 1975 Acct:[id number] Age/Sex: 49 / M ADM Date: 03/30/25 Loc: HO.US Attending Dr: Gary Bains MD Ordering Physician: Gary Bains MD Date of Service: 03/30/25 Procedure(s): US renal BI Accession Number(s): [id number] cc: Gary Bains MD; Juana Johnson MD [...] 03/30/25 1500 DD/ 1432 TD/TT: 03/30/25 1440 Pulper Operator: Procedure Note Donotuseinterpreter, Image - 03/30/2025 [place] [address] Ultrasound Report Signed Patient: Elton NationMR#: [id number] : 1975Acct:[id number] Age/Sex: 49 / MADM Date: 03/30/25 Loc: HO.US Attending Dr: Gary Bains MD Ordering Physician: Gary Bains MD Date of Service: 03/30/25 Procedure(s): US renal BI Accession Number(s): [id number] cc: Gary Bains MD; Juana Johnosn MD Reason for Exam: R31.29 - Other [...] 03/30/25 1500 DD/ 1432 TD/TT: 03/30/25 1440 Pulper Operator: [facility] External Provider IMG US PROCEDURES Final Result documented in this encounter Visit Diagnoses Not on filedocumented in this encounter Additional Health Concerns Assessment Noted Time PHQ-9 Depression Total Score: 0 08/04/19 25 2:17 PM EST documented as of this encounter Care Teams Belting Cutter Relationship Specialty Start Date End Date Juana Johnson MD [address] [place] [phone] PCP - General Family Medicine 08/12/18 documented as of this encounter
== END 2025-03-31 11:35 | disposition home or self-care (01) ==
LOC: HO.HOS 10:23
PROVIDERS: PCP Internal Medicine; Visit Provider Orthopaedic Surgery
DX: S62.633B Displaced fracture of distal phalanx of left middle finger, initial encounter for open fracture (principal); E11.9 Type 2 diabetes mellitus without complications
CPT/HCPCS: 99213

== ENCOUNTER → 2025-03-31 10:23 | Outpatient (BNVA) | payer OTHER, SELFPAY | PROVIDERS: PCP Internal Medicine; Visit Provider Orthopaedic Surgery | DX: S62.633B Displaced fracture of distal phalanx of left middle finger, initial encounter for open fracture (principal); E11.9 Type 2 diabetes mellitus without complications | CPT/HCPCS: 99212 ==

== ENCOUNTER 2025-04-07 15:03 | Outpatient (AMB) | payer OTHER, SELFPAY ==
--- NOTE | 2025-04-07 15:25 | A.OFFVIS_ITS ---
Vital Signs 04/07/25 15:26 Height 5 ft 10 in Weight 245 lb BMI 35.2 Intake Visit Reasons: PO LT MF I&D/revsn amp/removal nail bed 03/15/25 AR Intake Note: Elton 49 yr old male presents today for his P/O visit for his left middle finger I&D Dr Han on 03/15/25. Dressing removed in office. Patient is here for a wound check. States he is doing well, he has notice a little blood drain bit doing well over all. Allergies No Known Allergies Allergy (Verified 04/07/25 15:26) HPI HPI PO LT MF I&D/revsn amp/removal nail bed 03/15/25 AR: Details: Elton is a 49 year old right hand dominant man who presents S/P let middle finger I&D of open left middle finger distal phalanx fracture, DOS: 03/15/25. He is S/P left middle finger near amputation with an area of skin loss over the volar aspect of the pad & open distal phalanx tuft fracture, DOI: 03/03/25, crushing his finger with a car david in his garage. He says he is doing well. He has completed his course of Abx & continues with daily dressing changes at home. He says he still has some bleeding from his wound, but this is minor. [facility] Medical History Hypertension Knee arthropathy Anemia Social History Household Members: Spouse and Children Are you a primary lawn care worker to a significant other at home: No Do you presently have visiting nurse or other home services: No Alcohol intake: never Patient Tobacco Use Status: Never used Tobacco Second Hand Smoke Exposure: No Current occupational status: unemployed Current occupation: rt handed Physical Exam Vital Signs: BMI result Body Mass Index 35.2 Const General: no acute distress and alert Orientation/consciousness: patient oriented x3 Neuro General: patient oriented x3 Extrem Other: The patient was alert oriented and in no acute distress The incision is healing well with no erythema drainage or evidence of infection. The wound is narrowing. We are seeing some re-epithelialization over the granulation tissue. There is a small, proximally 3-4 mm diameter area of granulation tissue in the proximal aspect of the wound.. He can make a fist with all digits and extend all his digits Sensation is intact Cap refill is brisk Radiographs: 3 views of the left hand from 03/23/25 were reviewed by me today in clinic. They show a middle finger open distal phalanx fracture with satisfactory fracture alignment. Psych Appearance: grossly normal Affect: normal affect Attitude: cooperative Assessment & Plan Assessment & Plan (1) Open fracture of distal phalanx of left middle finger: Code(s): S62.633B - Displaced fracture of distal phalanx of left middle finger, initial encounter for open fracture Category: Medical (2) Diabetes mellitus: Code(s): E11.9 - Type 2 diabetes mellitus without complications Category: Medical Plan Assessment & Plan: 1. Left middle finger near amputation with an area of skin loss over the volar aspect of the pad 2. Left middle finger open distal phalanx tuft fracture S/P I&D, DOS: 03/15/25 From a crush injury, DOI: 03/03/25 The patient appears to be doing well post-operatively I educated him about the post-operative course He will continue to perform daily wound care I discussed activity modifications He will perform gentle ROM exercises at home He should continue washing the wound with soap and water in the shower or sink, but should avoid any underwater activities. He will follow up on 04/28/25 for a wound check, with X-rays, 3V L Scribed for Sonja Han MD by Con Vitale, durable medical equipment repairer, on 04/07/25 at 3:30 PM, EST. Coding Level of Care Code Global (90132) Diagnoses Open fracture of distal phalanx of left middle finger S62.633B Diabetes mellitus E11.9
[2025-04-07 15:26] VITALS: BMI 35.2
--- OUTSIDE RECORDS SUMMARY | 2025-04-07 18:13 | XMS_ITS | Clinical Summary ---
Author Organization [employer] Address [address] [facility] [address] [place] [address] Care Team Providers Care Consumer Sales Representative Name Role Phone Juana Johnson MD Primary [...] 21 Active ergocalciferol (Vitamin D-2) 1.25 MG (50998 UT) capsule take 1 capsule by oral [...] complication, without long-term current use of insulin ([facility]) 1 each 2 times daily. 100 each 3 12/24/19 24 Active colchicine 0.6 MG tabletIndication s:Articular gout Take 1 tablet (0.6 mg) by mouth Once per day. 60 tablet 6 12/24/19 24 Active Lancets miscIndications: Type 2 diabetes mellitus without complication, without long-term current use of insulin ([facility]) Use to test blood sugar 2 [...] complication, without long-term current use of insulin ([facility]) Use to test blood sugar 1 times daily 100 each 1 08/04/19 25 026 Active Alcohol Swabs 70 % padsIndications: Type 2 diabetes mellitus without complication, without long-term current use of insulin ([facility]) Use to test blood sugar 1 times daily 100 each 1 08/04/19 25 Active Blood Glucose Monitoring Suppl (FreeStyle Eccles Lite) w/Device kitIndications:T ype 2 diabetes mellitus without complication, without long-term current use of insulin ([facility]) Use to test blood sugar 1 [...] complication, without long-term current use of insulin ([facility]) Use to test blood sugar 1 [...] Department Care Team Description 03/30/2025 Orders Only [facility] External Provider, [facility] 03/15/2025 Orders Only GENERIC EXTERNAL DATA DEPARTMENT Provider, Generic External Data 03/11/2025 Refill [facility] [address] [place] [address] Juana Johnson MD Essential hypertension; Type 2 diabetes mellitus without complication, without long-term current use of insulin ([facility]) 03/03/2025 Orders Only [facility] External Provider, [facility] 02/26/2025 Refill [facility] [address] [place] [address] Juana Johnson MD Type 2 diabetes mellitus without complication, without long-term current use of insulin ([facility]) 01/17/2025 Refill [facility] [address] [place] [address] Juana Johnson MD Essential hypertension 01/07/2025 Orders [...] 10:00 AM EDT Office Visit [facility] [address], [place] [phone] Mauricio, Prema, OD [address] [place] [address] Health Maintenance Due Date Last Done Comments CT Colonography 1975 Colonoscopy 1975 FIT 1975 Sigmoidoscopy 1973 Alcohol/Substance Use Screening 1985 Family Planning (PISQ) 1988 Hepatitis B Vaccines (1 of 3 - 19+ 3-dose series) 1992 Zoster Vaccines (1 of 2) 2023 Diabetes: Foot Exam 12/11/2023 12/10/2022, FOBT 11/05/2024 11/06/2023 SDOH Screening 12/23/2024 12/24/2023 COVID-19 Vaccine ( [...] PM EDT Narrative 03/30/2025 3:02 PM EDT [place] [address] Ultrasound Report Signed Patient: Elton Nation MR#: [id number] : 1975 Acct:[id number] Age/Sex: 49 / M ADM Date: 03/30/25 Loc: HO.US Attending Dr: Gary Bains MD Ordering Physician: Gary Bains MD Date of Service: 03/30/25 Procedure(s): US renal BI Accession Number(s): [id number] cc: Gary Bains MD; Juana Johnson MD [...] 03/30/25 1500 DD/ 1432 TD/TT: 03/30/25 1440 Director Safety: Procedure Note Donotuseinterpreter, Image - 03/30/2025 [place] [address] Ultrasound Report Signed Patient: Elton Nation#: [id number] : 1975Acct:[id number] Age/Sex: 49 / MADM Date: 03/30/25 Loc: HO.US Attending Dr: Gary Bains MD Ordering Physician: Gary Bains MD Date of Service: 03/30/25 Procedure(s): US renal BI Accession Number(s): [id number] cc: Gary Bains MD; Juana Johnson MD [...] 03/30/25 1500 DD/ 1432 TD/TT: 03/30/25 1440 Director Safety: [facility] External Provider IMG US PROCEDURES Final Result * (ABNORMAL) Glucose, Whole Blood (03/15/2025 9:09 AM EDT) Glucose, Whole Blood 134(H) 60 - 115 mg/dL [facility] Comment:METER #: [id number] 03/15/2025 9:09 AM EDT 03/15/2025 9:23 AM EDT Generic External Data Provider LAB BLOOD ORDERAB LES Final Result [facility] [address] [place] [phone] * XR Fingers 2+ Views Left (03/03/2025 2:30 PM EDT) Anatomical Region Laterality Modality Upper Extremities, Fingers Left Radio graphic Imaging 03/03/2025 2:30 PM EDT Narrative 03/03/2025 2:50 PM EDT [address] [address] XRay Report Signed Patient: Elton Nation MR#: [id number] : 1975 Acct:[id number] Age/Sex: 49 / M ADM Date: 03/03/25 Loc: HO.ED Attending Dr: Ordering Physician: Emily Baker Date of Service: 03/03/25 Procedure(s): XR finger LT min 2V Accession Number(s): [id number] cc: Juana Johnson MD; Emily Baker EXAMINATION: [...] 03/03/25 1447 DD/ 1430 TD/TT: 03/03/25 1437 Director Safety: Procedure Note Cecilia, Edita - 03/03/[address] [address] XRay Report Signed Patient: Elton NationMR#: [id number] : 1975Acct:[id number] Age/Sex: 49 / MADM Date: 03/03/25 Loc: HO.ED Attending Dr: Ordering Physician: Emily Baker Date of Service: 03/03/25 Procedure(s): XR finger LT min 2V Accession Number(s): [id number] cc: Juana Johnson MD; Emily Baker EXAMINATION: [...] 03/03/25 1447 DD/ 1430 TD/TT: 03/03/25 1437 Director Safety: [facility] External Provider IMG XR PROCEDURES Final Result * Cytopath-cell enhanced (01/07/2025 4:51 PM EDT) 01/07/2025 4:51 PM EDT 01/08/2025 11:30 AM EDT [facility] - 01/11/2025 11:14 AM EDT ----- ------- Name: Elton Nation Age/Sex: 49/M : 1975 Unit#: [id number] Attend Dr: Bindu Jung [facility]- Re01/07/25 Status: DEP REF Location: [facility] Disch: ----- ------- SPEC : [id number] RECD: 01/08/25-1129 STATUS: ALISIA GHOSH NUM: [id number] JENIFER: 01/07/25-[address] [facility] [address]: Bindu Jung [facility]- ENTERED: 01/08/25-1346 SP TYPE: Cytology OTHR DR: Juana Johnson [...] developed and their performance characteristics determined by [facility]. They have not been cleared or approved by the U.S. Food and Drug Administration (FDA). However, the FDA has determined that such clearance or approval is not necessary. This laboratory is certified under the Clinical Laboratory Improvement Amendments of 1988 (CLIA) as qualified to perform high complexity clinical laboratory testing. Copies To: Juana Johnson MD [address] [address] Bindu Jung [facility] [address] [place] [address] Dr. Rainey [address] [place] [phone] [email or web address] CONTINUED ON NEXT PAGE ----- ------- Name: Vega LamasElton Age/Sex: 49/M : 1975 Unit#: [id number] Attend Dr: Bindu Jung [facility] Re01/07/25 Status: DEP REF Location: HO.LNP Disch: ----- ------- SPEC : [id number] RECD: 01/08/25-1130 STATUS: ALISIA GHOSH NUM: [id number] JENIFER: 01/07/25-[address] [facility] [address]: Bindu Jung [facility] ENTERED: 01/08/25-1341 SP TYPE: Cytology OTHR DR: Juana Johnson MD ORDERED: Cyto-enhanced ----- ------- Signed (signature on file) Иван Jimenez MD 01/11/25 5004 ----- ------- END OF REPORT Generic External Data Provider LAB CYTOLOGY ORDChristie RABLES Final Result Performing Organization Address [facility] Co de Phone Number [facility] [address] [place] [phone] * (ABNORMAL) POCT HGB A1C (10/23/2024 11:25 AM EDT) Hemoglobin A1C 6.7(A) 4.0 - 6.0 % QC Media Lot # [id number] Lot# Expiration Date Blood 10/23/2024 11:2 5 AM EDT Juana Adkins MD POINT OF CARE TEST EN TER/EDIT ORDERABLES Final Result * (ABNORMAL) Albumin, Random Urine W/Creatinine (08/20/2024 9:52 AM EST) Creatinine, Urine 364.36 mg/dL [facility] Microalbumin Urine 1,262.0 mg/L [facility] Microalbum Creatinine Ratio Ur 346.3(H) <30 ug/mg cr [facility] Comment:Albumin/Creatinine R atio Reference Ranges: Normal: < 30 ug/mg creatinine Microalbuminuria: 30 - 300 ug/mg creatinineClinical Albuminuria: > 300 ug/mg creatinine Urine (Urine, Random) 08/20/2024 9:52 AM EST 08/20/2024 11:27 AM EST Juana Adkins MD LAB URINE ORDERABLES Final Result Performing Organization Address [facility]/ZIP Co de Phone Number [facility] [address] [place] [phone] * (ABNORMAL) Lipid Panel, Standard (08/20/2024 9:52 AM EST) Triglycerides 251(H) <150 mg/dL [facility] Comment:Desirable Triglyceri de: less than 150 mg/dLBorderline High Triglyceride 150-199 mg/dLHigh Triglyceride: 200-499 mg/dLVery High Triglyceride: greater than or equal to 5OO mg/dL Cholesterol 152 <200 mg/dL [facility] Comment:Desirable Cholestero l: less than 200 mg/dLBorderline High Cholesterol: 200-239 mg/dLHigh Cholesterol: greater than 239 mg/dL LDL Cholesterol Calculated 61 <100 mg/dL [facility] Comment:Desirable LDL: less than 100 mg/dLNear Optimal/Above Optimal LDL: 110- 129 mg/dLBorderline High LDL: 130-159 mg/dLHigh LDL: 160-189 mg/dLVery High LDL: greater than or equal to 190 mg/dL HDL Cholesterol 41 >40 mg/dL [facility] Comment:Desirable HDL: great er than 40 mg/dL Note: This HDL assay may give artificially low results in patients with liver disease. Blood Venous blood specimen / Unknown 08/20/2024 9:52 AM EST 08/20/2024 11:20 AM EST us Juana Adkins MD LAB BLOOD ORDERABLES Final Result [facility] [address] [place] [phone] * Cologuard?? colon cancer screening (11/06/2023 10:00 AM EDT) Cologuard Result Negative Negative 11/13/19 8:34 AM EDT [facility] (CLIA #:[id number]) Comment: NEGATIVE TEST RESULT. A negative Cologuard [...] Morales et al, N Engl J Med 2014;370(14):5509-6531) The normal value (reference range) for this assay is negative. COLOGUARD RE-SCREENING RECOMMENDATION: Periodic colorectal cancer screening is an important part of preventive healthcare for asymptomatic individuals at average risk for colorectal cancer. Following a negative Cologuard result, the [place] Cancer Society and U.S. Multi-Society Task Force screening guidelines recommend a Cologuard re-screening interval of 3 years. References: [place] [employer] Guideline for Colorectal Cancer Screening: https://www.cancer.org/cancer/oswms-jttxts-rplxai/utuwsbhor-nvdzbmxop-lclaacg/ac s-rec ommendations.html.; Del DK, Patience CAVAZOS, Matthew ChavesK, Colorectal Cancer Screening: Recommendations for Physicians and Patients from the U.S. Multi-Society Task Force on Colorectal Cancer Screening , Am J Gastroenterology 2017; 112:9236-7721. TEST DESCRIPTION: Composite algorithmic analysis of stool [...] (Tania Phan al, N Engl J Med 2014;370(14):9171-9102.) Cologuard may produce a false negative or false positive result (no colorectal cancer or precancerous polyp present at colonoscopy follow up). A negative Cologuard test result does not guarantee the absence of CRC or advanced adenoma (pre-cancer). The current Cologuard screening interval is every 3 years. ([place] [employer] Society and U.S. Multi-Society Task Force). Cologuard performance data in a 10,000 patient pivotal study using colonoscopy as the reference method can be accessed at the following location: www.RotaPost.goBalto/results. Additional description of the Cologuard test process, warnings and precautions can be found at www.cologuard.com. Stool specimen (specimen) 11/06/2023 10:00 AM EDT 11/07/2023 2:00 PM EDT us Juana Adkins MD LAB MOLECULAR DIAGNOS TICS ORDERABLES Final Result Performing Organization Address City/[facility]/ZIP Co de Phone Number [facility] (CLIA #:[id number]) [address] [place] [phone], * HEPATITIS C ANTIBODY RFLX (07/21/2019 9:00 AM EST) [facility] HEPATITIS C ANTIBODY NONREACTIVE NONREACTIVE [facility] Comment: Antibodies to HCV not detected; does not exclude early acute HCV infection. 07/21/2019 9:00 AM EST us Juana Adkins MD HISTORICAL/NON ORDERA BLE LABS Final Result Performing Organization Address [facility] Co de Phone Number [facility] [address] * HIV AB/AG (07/21/2019 9:00 AM [...] of detection of this assay. The [employer] HIV Ag/Ab Combo assay result and supplemental assay results should be interpreted in conjunction with the patient's clinical presentation, history and other laboratory results. If the results are inconsistent with clinical evidence, additional testing is suggested to confirm the result. 07/21/2019 9:00 AM EST Juana Adkins MD HISTORICAL/NON ORDERA BLE LABS Final Result [facility] [address] from Last 3 Months or Most Recently Relevant to Health Maintenance Insurance [facility] < [address] [place] [phone] Care Teams Consumer Sales Representative Relationship Specialty Start Date End Date Juana Johnson MD [address] [place] [address] PCP - General Family Medicine 08/12/18
== END 2025-04-07 15:40 | disposition home or self-care (01) ==
LOC: HO.HOS 15:04
PROVIDERS: PCP Internal Medicine; Visit Provider Orthopaedic Surgery
DX: S62.633B Displaced fracture of distal phalanx of left middle finger, initial encounter for open fracture (principal); E11.9 Type 2 diabetes mellitus without complications
CPT/HCPCS: 99213

== ENCOUNTER → 2025-04-07 15:03 | Outpatient (BNVA) | payer OTHER, SELFPAY | PROVIDERS: PCP Internal Medicine; Visit Provider Orthopaedic Surgery | DX: S62.633D Displaced fracture of distal phalanx of left middle finger, subsequent encounter for fracture with routine healing (principal); E11.9 Type 2 diabetes mellitus without complications | CPT/HCPCS: 99212 ==

== ENCOUNTER 2025-04-22 10:02 | Outpatient (AMB) | payer OTHER, SELFPAY ==
--- NOTE | 2025-04-22 10:04 | HO.NEPHOV_ITS ---
Vital Signs 04/22/25 10:05 Height 5 ft 10 in Weight 246 lb BMI 35.3 BP 134/88 Blood Pressure Location Rt brachial Position Sitting Pulse 88 Pulse Source Pulse Oximeter Pulse Oximetry (%) 100 Oxygen Delivery Method Room Air Intake Visit Reasons: 5-6wk f/u w/labs, unable to leave Instructor Of Education Required: Yes Instructor Of Education Name: rachna Fall Accompanied by: Self / Same As Patient Allergies Seasonal Allergies Allergy (Unknown, Verified 04/22/25 10:06) Unknown Medication List - Last Reconciled 04/22/25 by Gary Bains MD amlodipine 5 mg PO DAILY atorvastatin 20 mg PO DAILY colchicine 0.6 mg PO DAILY hydrochlorothiazide 50 mg PO DAILY hydrocodone-acetaminophen 5-325 mg 1 tab PO Q4-6H PRN losartan 100 mg PO DAILY metformin ER 500 mg PO DAILY HPI Comments Details: The patient is a 49-year-old male presenting with proteinuria for evaluation of kidney function. The patient has a history of diabetes mellitus diagnosed two years ago. He also has a long-standing history of essential hypertension, which he reports has been present for his entire life. The patient reports using a CPAP machine for sleep apnea, indicating a diagnosis of obstructive sleep apnea. He denies any issues with urination, attributing frequent urination to diuretic use, which he takes once daily in the morning. The patient has a history of a finger injury where the tip was removed, but no further details were provided regarding the cause or treatment. 04/22/25 - The patient is a 49-year-old male presenting with kidney health monitoring and management of hypertension and diabetes. - Hypertension: Controlled with losartan, reducing proteinuria. - Diabetes: Blood glucose levels normal at home. - Kidney health: Blood and urine tests planned for function assessment. - Weight management: Recent 5-pound gain, limited activity. - Lifestyle: Advised on activity, salt, and diet soda intake. [facility] History Hypertension Knee arthropathy Anemia Social History Household Members: Spouse and Children Are you a primary family member caretaker to a significant other at home: No Do you presently have visiting nurse or other home services: No Alcohol intake: never Patient Tobacco Use Status: Never used Tobacco Second Hand Smoke Exposure: No Current occupational status: unemployed Current occupation: rt handed Physical Exam Vital Signs: Last Vital Signs Pulse 88 04/22/25 10:05 BP 134/88 04/22/25 10:05 Pulse Ox 100 04/22/25 10:05 Oxygen Delivery Method Room Air 04/22/25 10:05 BMI result Body Mass Index 35.3 Results Reviewed Results Reviewed: USG RIGHT KIDNEY: 10.5 x 4.9 x 5.8 cm (SAG x AP x TRV). The kidney is normal in size, contour, and echogenicity. Renal cortical thickness is normal. No calculi or suspicious focal parenchymal lesions. No hydronephrosis. There are multiple small simple cysts, largest measuring 1.4 x 1.0 x 1.3 cm. LEFT KIDNEY: 11.3 x 5.3 x 6.0 cm (SAG x AP x TRV). The kidney is normal in size, contour, and echogenicity. Renal cortical thickness is normal. No calculi or suspicious focal parenchymal lesions. No hydronephrosis. There are multiple small simple cysts, the largest measuring 3.1 x 3.0 x 3.8 cm. US/US renal BI IMPRESSION: 1. Bilateral renal cysts. 2. Otherwise normal examination.. Nephrology Results: Renal US 03/30/25 Assessment & Plan Assessment & Plan (1) Microscopic hematuria: Code(s): R31.29 - Other microscopic hematuria Category: Medical (2) Proteinuria: Code(s): R80.9 - Proteinuria, unspecified Category: Medical Plan 49-year-old man with a history of longstanding hypertension and recently diagnosed diabetes mellitus with non nephrotic range proteinuria. Most likely has hypertensive kidney disease. He has mild CKD probably CKD 2. Hypertension - Continue losartan for blood pressure and proteinuria. - Regular blood pressure monitoring. - Engage in regular physical activity and avoid excessive weight gain. - Limit salt intake and diet soda consumption to prevent kidney stones. Diabetes - Maintain current regimen, stable glucose levels. Bilateral renal cyst Simple. No further follow-up required Orders: Orders Basic Metabolic Panel Today R80.9 - Proteinuria, unspecified UA and rflx microscopic Today R80.9 - Proteinuria, unspecified Creatinine Urine Today R80.9 - Proteinuria, unspecified Total Protein Urine Random Today R80.9 - Proteinuria, unspecified Coding Level of Care Code Est Pt Level 4 (92580) Diagnoses Microscopic hematuria R31.29 Proteinuria R80.9
[2025-04-22 10:05] VITALS: BP 134/88; PULSE 88; O2SAT 100; BMI 35.3
--- OUTSIDE RECORDS SUMMARY | 2025-04-22 12:09 | XMS_ITS | Clinical Summary ---
Author Organization [employer] Address [address] [place] [address] Care Team Providers Care Regulated Program Manager Name Role Phone Juana Johnson MD [...] 1 Active ergocalciferol (Vitamin D-2) 1.25 MG (39188 UT) capsule take 1 capsule by oral [...] the morning. 30 tablet 11 4 Active Alcohol Swabs (Alcohol Prep) 70 % padsIndications:T ype 2 diabetes mellitus without complication, without long-term current use of insulin ([facility]) 1 each 2 times daily. 100 each 3 4 Active colchicine 0.6 MG tabletIndications :Articular gout Take 1 tablet (0.6 mg) by mouth Once per day. 60 tablet 6 4 Active Lancets miscIndications:T ype 2 diabetes mellitus without complication, without long-term current use of insulin ([facility]) Use to test blood sugar 2 [...] complication, without long-term current use of insulin ([facility]) Use to test blood sugar 1 times daily 100 each 1 5 08/04/19 26 Active Alcohol Swabs 70 % padsIndications:T ype 2 diabetes mellitus without complication, without long-term current use of insulin ([facility]) Use to test blood sugar 1 times daily 100 each 1 5 Active Blood Glucose Monitoring Suppl (FreeStyle Hudson Lite) w/Device kitIndications:Ty pe 2 diabetes mellitus without complication, without long-term current use of insulin ([facility]) Use to test blood sugar 1 times daily 1 kit 5 Active losartan (Cozaar) 100 MG tablet Take 1 tablet (100 mg) by mouth in the morning. 90 tablet 3 5 08/20/19 26 Active melatonin 5 MG tabletIndications :Primary insomnia TAKE 1 TABLET BY MOUTH EVERY DAY AT BEDTIME 30 tablet 2 5 Active hydroCHLOROthiazi de (HYDRODiuril) 50 MG tabletIndications :Essential hypertension TAKE 1 TABLET BY MOUTH EVERY DAY 90 tablet 3 5 Active metFORMIN, OSM, (Fortamet) 500 MG 24 hr tabletIndications :Type 2 diabetes mellitus without complication, without long-term current use of insulin (CMS/HCC) Take 1 tablet (500 mg) by mouth with evening meal. Do not crush, chew, or split. 30 tablet 11 5 02/27/20 26 Active amLODIPine (Norvasc) 5 MG tabletIndications :Essential hypertension TAKE 1 TABLET BY MOUTH EVERY DAY 90 tablet 3 5 Active atorvastatin (Lipitor) 20 MG tabletIndications :Essential hypertension TAKE 1 TABLET IN THE EVENING EVERY DAY 90 tablet 3 5 Active TRUEplus Lancets 33G miscIndications:T ype 2 diabetes mellitus without complication, without long-term current use of insulin (CMS/HCC) USE DIRECTED TO TEST BLOOD SUGAR EVERY DAY 100 each 4 5 Active Active Problems Problem Noted Date Diagnosed Date [...] Department Care Team Description 03/30/2025 Orders Only [facility] External Provider, [facility] 03/15/2025 Orders Only GENERIC EXTERNAL DATA DEPARTMENT Provider, Generic External Data 03/11/2025 Refill [facility] MEDICINE [address] [place] [address] Juana Johnson MD Essential hypertension; Type 2 diabetes mellitus without complication, without long-term current use of insulin ([facility]/HCC) 03/03/2025 Orders Only [facility] External Provider, [facility] 02/26/2025 Refill [facility] CHC MED & PEDS [address] [place] [address] Juana Johnson MD Type 2 diabetes mellitus without complication, without long-term current use of insulin ([facility]) from Last 3 Months Immunizations Immunization Administration [...] Care Team (Late st Contact Info) Description 08/25/2025 2:00 PM EST Office Visit [facility] OPTOMETRY [address] [place] [address] Mauricio, Prema, OD [address] [place], [place] [phone] Health Maintenance Due Date Last Done Comments [...] history exists Depression Screening 08/04/2025 08/04/2024, 08/04/19 25 Diabetes: Urine Protein Screening 08/20/2025 08/20/2024, 01/03/2023 [...] VIEWS LEFT Routine 03/03/2025 2:30 PM EDT POCT GLYCATED HEMOGLOBIN, TOTAL Routine [...] PM EDT Narrative 03/30/2025 3:02 PM EDT [place] [address] Ultrasound Report Signed Patient: Elton Nation MR#: [id number] : 1975 Acct:[id number] Age/Sex: 49 / M ADM Date: 03/30/25 Loc: HO.US Attending Dr: Gary Bains MD Ordering Physician: Gary Bains MD Date of Service: 03/30/25 Procedure(s): US renal BI Accession Number(s): [id number] cc: Gary Bains MD; Juana Johnson MD [...] 03/30/25 1500 DD/ 1432 TD/TT: 03/30/25 1440 Community Liaison Officer: Procedure Note Donotjoseinterpreter, Image - 03/30/2025 [place] [address] Ultrasound Report Signed Patient: Elton NationMR#: [id number] : 1975Acct:[id number] Age/Sex: 49 / MADM Date: 03/30/25 Loc: HO.US Attending Dr: Gary Bains MD Ordering Physician: Gary Bains MD Date of Service: 03/30/25 Procedure(s): US renal BI Accession Number(s): [id number] cc: Gary Bains MD; Juana Johnson MD [...] 03/30/25 1500 DD/ 1432 TD/TT: 03/30/25 1440 Community Liaison Officer: us [facility] External Provider IMG US PROCEDURES Final Result * (ABNORMAL) Glucose, Whole Blood (03/15/2025 9:09 AM EDT) Glucose, Whole Blood 134(H) 60 - 115 mg/dL [facility] Comment:METER #: [id number] 03/15/2025 9:09 AM EDT 03/15/2025 9:23 AM EDT us Generic External Data Provider LAB BLOOD ORDERAB LES Final Result Performing Organization Address City/State/[facility] Co de Phone Number [facility] [address] [place] [phone] * XR Fingers 2+ Views Left (03/03/2025 2:30 PM EDT) Anatomical Region Laterality Modality Upper Extremities, Fingers Left Radio graphic Imaging 03/03/2025 2:30 PM EDT Narrative 03/03/2025 2:50 PM EDT [address] [address] XRay Report Signed Patient: Elton Nation MR#: [id number] : 1975 Acct:[id number] Age/Sex: 49 / M ADM Date: 03/03/25 Loc: HO.ED Attending Dr: Ordering Physician: Emily Baker Date of Service: 03/03/25 Procedure(s): XR finger LT min 2V Accession Number(s): [id number] cc: Juana Johnson MD; Emily Baker EXAMINATION: [...] OV> 03/03/25 1447 DD/ 1430 TD/TT: 03/03/25 143 Community Liaison Officer: Procedure Note Donotuseinterpreter, Image - 03/03/2025 [place] [address] XRay Report Signed Patient: Elton Nation#: [id number] : 1975Acct:[id number] Age/Sex: 49 / MADM Date: 03/03/25 Loc: HO.ED Attending Dr: Ordering Physician: Emily Baker Date of Service: 03/03/25 Procedure(s): XR finger LT min 2V Accession Number(s): [id number] cc: Juana Johnson MD; Emily Baker EXAMINATION: [...] 03/03/25 1447 DD/ 1430 TD/TT: 03/03/25 1437 Community Liaison Officer: [facility] External Provider IMG XR PROCEDURES Final Result * (ABNORMAL) POCT HGB A1C (10/23/2024 11:25 AM EDT) Hemoglobin A1C 6.7(A) 4.0 - 6.0 % QC Media Lot # [id number] Lot# Expiration Date Blood 10/23/2024 11:2 5 AM EDT Result [facility] Juana Adkins MD POINT OF CARE TEST EN TER/EDIT ORDERABLES Final Result * (ABNORMAL) Albumin, Random Urine W/Creatinine (08/20/2024 9:52 AM EST) Creatinine, Urine 364.36 mg/dL [facility] Microalbumin Urine 1,262.0 mg/L [facility] Microalbum Creatinine Ratio Ur 346.3(H) <30 ug/mg cr [facility] Comment:Albumin/Creatinine R atio Reference Ranges: Normal: < 30 ug/mg creatinine Microalbuminuria: 30 - 300 ug/mg creatinineClinical Albuminuria: > 300 ug/mg creatinine Urine (Urine, Random) 08/20/2024 9:52 AM EST 08/20/2024 11:27 AM EST Juana Adkins MD LAB URINE ORDERABLES Final Result [facility] [address] [place] [phone] * (ABNORMAL) Lipid Panel, Standard (08/20/2024 9:52 AM EST) Triglycerides 251(H) <150 mg/dL [facility] Comment:Desirable Triglyceri de: less than [...] 190 mg/dL HDL Cholesterol 41 >40 mg/dL [facility] Comment:Desirable HDL: great er than 40 mg/dL Note: This HDL assay may give artificially low results in patients with liver disease. Blood Venous blood specimen / Unknown 08/20/2024 9:52 AM EST 08/20/2024 11:20 AM EST Juana Adkins MD LAB BLOOD ORDERABLES Final Result [facility] [address] [place] [phone] * Cologuard?? colon cancer screening (11/06/2023 10:00 AM EDT) Cologuard Result Negative Negative 11/13/19 24 8:34 AM EDT [employer] (CLIA #:[id number]) Comment: NEGATIVE TEST RESULT. A negative Cologuard [...] screened with both Cologuard and colonoscopy. (Tania Berry, N Engl J Med 2014;370(14):9695-0914) The normal value (reference range) for this assay is negative. COLOGUARD RE-SCREENING RECOMMENDATION: Periodic colorectal cancer screening is an important part of preventive healthcare for asymptomatic individuals at average risk for colorectal cancer. Following a negative Cologuard result, the [place] Cancer Society and U.S. Multi-Society Task Force screening guidelines recommend a Cologuard re-screening interval of 3 years. References: [place] [employer] Guideline for Colorectal Cancer Screening: https://www.cancer.org/cancer/epgxp-vgjfje-npvxsq/maecanqzw-yldtkuzxn-hkatwik/ac s-rec ommendations.html.; Del DK, Patience CAVAZOS, Matthew ChavesK, Colorectal Cancer Screening: Recommendations for Physicians and Patients from the U.S. Multi-Society Task Force on Colorectal Cancer Screening , Am J Gastroenterology 2017; 112:7202-5573. TEST DESCRIPTION: Composite algorithmic analysis of stool [...] were screened with both Cologuard and colonoscopy. (Imperiale T. et al, N Engl J Med 2014;370(14):3381-0844.) Cologuard may produce a false negative or false positive result (no colorectal cancer or precancerous polyp present at colonoscopy follow up). A negative Cologuard test result does not guarantee the absence of CRC or advanced adenoma (pre-cancer). The current Cologuard screening interval is every 3 years. ([place] [employer] and U.S. Multi-Society Task Force). Cologuard performance data in a 10,000 patient pivotal study using colonoscopy as the reference method can be accessed at the following location: www.[employer].Graze/results. Additional description of the Cologuard test process, warnings and precautions can be found at www.phorusrd.Graze. Stool specimen (specimen) 11/06/2023 10:00 AM EDT 11/07/2023 2:00 PM EDT Juana Adkins MD LAB MOLECULAR DIAGNOS TICS ORDERABLES Final Result Performing Organization Address City/[facility] [address]/ZIP Co de Phone Number [employer] (CLIA #:[id number]) [address] [place] [address], * HEPATITIS C ANTIBODY RFLX (07/21/2019 9:00 AM EST) Pathologist [facility] HEPATITIS C ANTIBODY NONREACTIVE NONREACTIVE [facility] Comment: Antibodies to HCV not detected; does not exclude early acute HCV infection. 07/21/2019 9:00 AM EST Juana Adkins MD HISTORICAL/NON ORDERA BLE LABS Final Result Performing Organization Address City/[facility] [address]/ZIP Co de Phone Number [facility] [address] * HIV AB/AG (07/21/2019 9:00 AM [...] of detection of this assay. The [employer] HIV Ag/Ab Combo assay result and supplemental assay results should be interpreted in conjunction with the patient's clinical presentation, history and other laboratory results. If the results are inconsistent with clinical evidence, additional testing is suggested to confirm the result. 07/21/2019 9:00 AM EST us Juana Adkins MD HISTORICAL/NON ORDERA BLE LABS Final Result [facility] [address] from Last 3 Months or Most Recently Relevant to Health Maintenance Insurance [facility] < [address] [place] [phone] Care Teams Regulated Program Manager Relationship Specialty Start Date End Date Juana Johnson MD [address] [place] [address] PCP - General Family Medicine 08/12/18
== END 2025-04-22 10:22 | disposition home or self-care (01) ==
LOC: HO.HKA 10:03
PROVIDERS: PCP Internal Medicine; Visit Provider Internal Medicine Hypertension Specialist
DX: R31.29 Other microscopic hematuria (principal); R80.9 Proteinuria, unspecified
CPT/HCPCS: 99214

== ENCOUNTER → 2025-04-22 10:02 | Outpatient (BNVA) | payer OTHER, SELFPAY | PROVIDERS: PCP Internal Medicine; Visit Provider Internal Medicine Hypertension Specialist | DX: E11.9 Type 2 diabetes mellitus without complications (principal); R31.29 Other microscopic hematuria; R80.9 Proteinuria, unspecified; I10 Essential (primary) hypertension; N18.2 Chronic kidney disease, stage 2 (mild) | CPT/HCPCS: 99212 ==

== ENCOUNTER 2025-05-12 08:19 | Outpatient (REF) | payer OTHER, SELFPAY ==
--- OUTSIDE RECORDS SUMMARY | 2025-05-13 08:30 | XMS_ITS | Clinical Summary ---
Author Organization [employer] Address [address] [facility] [address] [place] [address] Care Team Providers Care Bullet Slug Casting Machine Operator Name Role Phone Juana Johnson MD [...] 1 Active ergocalciferol (Vitamin D-2) 1.25 MG (65592 UT) capsule take 1 capsule by oral [...] complication, without long-term current use of insulin ([facility]) 1 each 2 times daily. 100 each 3 4 Active colchicine 0.6 MG tabletIndications :Articular gout Take 1 tablet (0.6 mg) by mouth Once per day. 60 tablet 6 4 Active Lancets miscIndications:T ype 2 diabetes mellitus without complication, without long-term current use of insulin ([facility]) Use to test blood sugar 2 times [...] complication, without long-term current use of insulin ([facility]) Use to test blood sugar 1 times daily 100 each 1 5 08/04/19 26 Active Alcohol Swabs 70 % padsIndications:T ype 2 diabetes mellitus without complication, without long-term current use of insulin ([facility]) Use to test blood sugar 1 times daily 100 each 1 5 Active Blood Glucose Monitoring Suppl (FreeStyle Darrow Lite) w/Device kitIndications:Ty pe 2 diabetes mellitus without complication, without long-term current use of insulin ([facility]) Use to test blood sugar 1 times [...] complication, without long-term current use of insulin (HCC) Take 1 tablet (500 mg) by mouth [...] complication, without long-term current use of insulin (HCC) USE DIRECTED TO TEST BLOOD SUGAR EVERY [...] Encounters Date Type Department Care Team Description 05/03/2025 2:00 PM EDT Office Visit [facility] OPTOMETRY [address] [place] [address] Prema Martínez, OD Diabetes type 2, 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); Dry eye syndrome of both eyes; Presbyopia of both eyes 05/03/2025 Travel 03/30/2025 Orders Only [facility] External Provider, [facility] 03/15/2025 Orders Only GENERIC EXTERNAL DATA DEPARTMENT Provider, Generic External Data 03/11/2025 Refill [facility] MEDICINE [address] [place] [address] Juana Johnson MD Essential hypertension; Type 2 diabetes mellitus without complication, without long-term current use of insulin ([facility]) 03/03/2025 Orders Only [facility] External Provider, [facility] 02/26/2025 Refill [facility] MED & PEDS [address] [place] [address] Juana Johnson MD Type 2 diabetes mellitus without complication, without long-term current use of insulin ([facility]) from Last 3 Months Immunizations Immunization Administration [...] 10/23/2024 11:20 AM EDT Plan of Treatment Health Maintenance Due Date Last Done Comments [...] 08/20/2025 08/20/2024, 01/03/2023 Lipid Panel 08/20/2025 08/20/2024, 02/2023, 09/20/2020 Disability Screening 10/23/2025 10/23/2024 Tobacco Screening 10/23/2025 10/23/2024 Colorectal Cancer Screening 11/05/2026 FIT DNA/Cologuard 11/05/2026 11/06/2023 Eye Exam 05/03/2027 05/03/2025, 12/2024, 05/03/2025, Additional history exists DTaP/Tdap/Td Vaccines (2 - Td or Tdap) [...] PM EDT Narrative 03/30/2025 3:02 PM EDT [address] [address] Ultrasound Report Signed Patient: Elton Nation MR#: [id number] : 1975 Acct:[id number] Age/Sex: 49 / M ADM Date: 03/30/25 Loc: HO.US Attending Dr: Gary Bains MD Ordering Physician: Gary Bains MD Date of Service: 03/30/25 Procedure(s): US renal BI Accession Number(s): [id number] cc: Gary Bains MD; Juana Johnson MD [...] 03/30/25 1500 DD/ 1432 TD/TT: 03/30/25 1440 Legal Administrator: Procedure Note Donotuseinterpreter, Image - 03/30/[address] [address] Ultrasound Report Signed Patient: Elton NationMR#: [id number] : 1975Acct:[id number] Age/Sex: 49 / MADM Date: 03/30/25 Loc: HO.US Attending Dr: Gary Bains MD Ordering Physician: Gary Bains MD Date of Service: 03/30/25 Procedure(s): US renal BI Accession Number(s): [id number] cc: Gary Bains MD; Juana Johnson MD [...] 03/30/25 1500 DD/ 1432 TD/TT: 03/30/25 1440 Legal Administrator: us [facility] External Provider IMG US PROCEDURES Final Result * (ABNORMAL) Glucose, Whole Blood (03/15/2025 9:09 AM EDT) Glucose, Whole Blood 134(H) 60 - 115 mg/dL [facility] Comment:METER #: [id number] 03/15/2025 9:09 AM EDT 03/15/2025 9:23 AM EDT Generic External Data Provider LAB BLOOD ORDERAB LES Final Result Performing Organization Address City/State/RUST Co de Phone Number [facility] [address] [place] [phone] * XR Fingers 2+ Views Left (03/03/2025 2:30 PM EDT) Anatomical Region Laterality Modality Upper Extremities, Fingers Left Radio graphic Imaging 03/03/2025 2:30 PM EDT Narrative 03/03/2025 2:50 PM EDT [address] [address] XRay Report Signed Patient: Elton Nation MR#: [id number] : 1975 Acct:[id number] Age/Sex: 49 / M ADM Date: 03/03/25 Loc: HO.ED Attending Dr: Ordering Physician: Emily Baker Date of Service: 03/03/25 Procedure(s): XR finger LT min 2V Accession Number(s): [id number] cc: Juana Johnson MD; Emily Baker EXAMINATION: [...] 03/03/25 1447 DD/ 1430 TD/TT: 03/03/25 1437 Legal Administrator: Procedure Note Donotuseinterpreter, Image - 03/03/[address] [address] XRay Report Signed Patient: Elton Nation#: [id number] : 1975Acct:[id number] Age/Sex: 49 / MADM Date: 03/03/25 Loc: HO.ED Attending Dr: Ordering Physician: Emily Baker Date of Service: 03/03/25 Procedure(s): XR finger LT min 2V Accession Number(s): [id number] cc: Juana Johnson MD; Emily Baker EXAMINATION: [...] 03/03/25 1447 DD/ 1430 TD/TT: 03/03/25 1437 Legal Administrator: us [facility] External Provider IMG XR PROCEDURES Final Result * (ABNORMAL) POCT HGB A1C (10/23/2024 11:25 AM EDT) Hemoglobin A1C 6.7(A) 4.0 - 6.0 % QC Media Lot # [id number] Lot# Expiration Date Blood 10/23/2024 11:2 5 AM EDT Juana Adkins MD POINT OF CARE TEST EN TER/EDIT ORDERABLES Final Result * (ABNORMAL) Albumin, Random Urine W/Creatinine (08/20/2024 9:52 AM EST) Creatinine, Urine 364.36 mg/dL [facility] Microalbumin Urine 1,262.0 mg/L [facility] Microalbum Creatinine Ratio Ur 346.3(H) <30 ug/mg cr [facility] Comment:Albumin/Creatinine R atio Reference Ranges: Normal: < 30 ug/mg creatinine Microalbuminuria: 30 - 300 ug/mg creatinineClinical Albuminuria: > 300 ug/mg creatinine Urine (Urine, Random) 08/20/2024 9:52 AM EST 08/20/2024 11:27 AM EST Juana Adkins MD LAB URINE ORDERABLES Final Result [facility] [address] [place] [phone] * (ABNORMAL) Lipid Panel, Standard (08/20/2024 9:52 AM EST) Triglycerides 251(H) <150 mg/dL [facility] Comment:Desirable Triglyceri de: less than 150 mg/dLBorderline High Triglyceride 150-199 mg/dLHigh Triglyceride: 200-499 mg/dLVery High Triglyceride: greater than or equal to 5OO mg/dL Cholesterol 152 <200 mg/dL [facility] Comment:Desirable Cholestero l: less than 200 mg/dLBorderline High Cholesterol: 200-239 mg/dLHigh Cholesterol: greater than 239 mg/dL LDL Cholesterol Calculated 61 <100 mg/dL [facility] Comment:Desirable LDL: less than 100 mg/dLNear Optimal/Above Optimal LDL: 110- 129 mg/dLBorderline High LDL: 130-159 mg/dLHigh LDL: 160-189 mg/dLVery High LDL: greater than or equal to 190 mg/dL HDL Cholesterol 41 >40 mg/dL [facility] Comment:Desirable HDL: great er than 40 mg/dL Note: This HDL assay may give artificially low results in patients with liver disease. Blood Venous blood specimen / Unknown 08/20/2024 9:52 AM EST 08/20/2024 11:20 AM EST Juana Adkins MD LAB BLOOD ORDERABLES Final Result [facility] [address] [place] [phone] * Cologuard?? colon cancer screening (11/06/2023 10:00 AM EDT) Cologuard Result Negative Negative 11/13/19 8:34 AM EDT [employer] (CLIA #:[id number]) Comment: NEGATIVE TEST RESULT. A negative Cologuard [...] (Tania Phan al, N Engl J Med 2014;370(14):2260-4799) The normal value (reference range) for this assay is negative. COLOGUARD RE-SCREENING RECOMMENDATION: Periodic colorectal cancer screening is an important part of preventive healthcare for asymptomatic individuals at average risk for colorectal cancer. Following a negative Cologuard result, the [place] [employer] Society and U.S. Multi-Society Task Force screening guidelines recommend a Cologuard re-screening interval of 3 years. References: [place] [employer] Guideline for Colorectal Cancer Screening: https://www.cancer.org/cancer/xlcla-uvwwam-azofdw/dcedbvcla-etbsdofzi-yhfkkvt/ac s-rec ommendations.html.; Del DK, Patience CAVAZOS, Matthew KILPATRICK, Colorectal Cancer Screening: Recommendations for Physicians and Patients from the U.S. Multi-Society Task Force on Colorectal Cancer Screening , Am J Gastroenterology 2017; 112:3664-0771. TEST DESCRIPTION: Composite algorithmic analysis of stool [...] (Tania Phan al, N Engl J Med 2014;370(14):5703-6482.) Cologuard may produce a false negative or false positive result (no colorectal cancer or precancerous polyp present at colonoscopy follow up). A negative Cologuard test result does not guarantee the absence of CRC or advanced adenoma (pre-cancer). The current Cologuard screening interval is every 3 years. ([place] [employer] Society and U.S. Multi-Society Task Force). Cologuard performance data in a 10,000 patient pivotal study using colonoscopy as the reference method can be accessed at the following location: www.[employer]/results. Additional description of the Cologuard test process, warnings and precautions can be found at www.cologuard.com. Stool specimen (specimen) 11/06/2023 10:00 AM EDT 11/07/2023 2:00 PM EDT us Juana Adkins MD LAB MOLECULAR DIAGNOS TICS ORDERABLES Final Result Performing Organization Address [facility]/ZIP Co de Phone Number [employer] (CLIA #:[id number]) [address] [phone] * HEPATITIS C ANTIBODY RFLX (07/21/2019 9:00 AM EST) Pathologist [facility] HEPATITIS C ANTIBODY NONREACTIVE NONREACTIVE [facility] Comment: Antibodies to HCV not detected; does not exclude early acute HCV infection. 07/21/2019 9:00 AM EST us Juana Adkins MD HISTORICAL/NON ORDERA BLE LABS Final Result Performing Organization Address [facility]/[place]UST Co de Phone Number [facility] [address] * HIV AB/AG (07/21/2019 9:00 AM EST) Pathologist [facility] HIV AG/AB NONREACTIVE [facility] [...] of detection of this assay. The [employer] HIV Ag/Ab Combo assay result and supplemental assay results should be interpreted in conjunction with the patient's clinical presentation, history and other laboratory results. If the results are inconsistent with clinical evidence, additional testing is suggested to confirm the result. 07/21/2019 9:00 AM EST us Juana Adkins MD HISTORICAL/NON ORDERA BLE LABS Final Result [facility] [address] from Last 3 Months or Most Recently Relevant to Health Maintenance Insurance [facility] < [address] [place] [phone] Care Teams Bullet Slug Casting Machine Operator Relationship Specialty Start Date End Date Juana Johnson MD [address] [place] [address] PCP - General Family Medicine 08/12/18
== END 2025-05-12 08:20 | disposition home or self-care (01) ==
LOC: HO.HOSX 08:19
PROVIDERS: Visit Provider Orthopaedic Surgery
DX: Z13.89 Encounter for screening for other disorder (principal)

== ENCOUNTER 2025-05-18 10:23 | Outpatient (REF) | payer OTHER, SELFPAY ==
--- NOTE | ~2025-05-18 | XR_ITS ---
EXAMINATION: XR HAND 3 OR MORE VIEWS LEFT HISTORY: M79.642 - Pain in left hand COMPARISON: Comparison is made with the prior examination dated 03/23/2025. FINDINGS: Three views of the left hand are submitted. Osseous mineralization is normal. Again seen is a fracture of the distal tuft of the middle finger. The fracture line remains visible. A well-corticated osseous density is again seen adjacent to the distal ulna. The patient is status post internal fixation of the distal radius. Again seen is degenerative change of the carpus. The soft tissues are unremarkable. XR/XR hand LT min 3V IMPRESSION: Chronic fracture deformities as described. Electronically signed by: Soy Marroquin MD 05/18/2025 11:33 AM EDT
--- OUTSIDE RECORDS SUMMARY | 2025-05-20 12:24 | XMS_ITS | Clinical Summary ---
Author Organization [employer] Address [address] [facility] [facility] [address] [place] [address] Care Team Providers Care Consulting Engineer Name Role Phone Juana Johnson MD Primary Care Provide r Allergies Active Allergy Reactions Criticality Noted Date Comments Aspirin Rash Low 09/11/2023 Medications ciprofloxacin (Cipro) 250 MG tablet Take 1 tablet by mouth every 12 (twelve) hours. 07/21/20 19 Active cyclobenzaprine (Flexeril) 5 MG tablet Take 1 tablet by mouth every 8 (eight) hours. 06/17/20 20 Active dextran 70-hypromellose (dextran-70 & hydroxypropyl methylcellulose) 0.1-0.3 % ophthalmic solution 2 drops every 8hrs 02/03/20 21 Active ergocalciferol (Vitamin D-2) 1.25 MG (80610 UT) capsule take 1 capsule by oral [...] complication, without long-term current use of insulin ([facility]) 1 each 2 times daily. 100 each 3 12/24/19 24 Active colchicine 0.6 MG tabletIndications :Articular gout Take 1 tablet (0.6 mg) by mouth Once per day. 60 tablet 6 12/24/19 24 Active Lancets miscIndications:T ype 2 diabetes mellitus without complication, without long-term current use of insulin ([facility]) Use to test blood sugar 2 times daily 100 each 12/24/19 24 Active naproxen (Naprosyn) 500 MG tablet TAKE 1 TABLET BY MOUTH TWICE DAILY IN THE MORNING AND IN THE EVENING WITH MEALS 60 tablet 1 03/26/20 24 Active Blood Pressure Monitoring (Blood Pressure Cuff) miscIndications:E ssential hypertension 1 each Once daily. 1 each 08/04/19 25 Active FREESTYLE LITE test stripIndications: Type 2 diabetes mellitus without complication, without long-term current use of insulin ([facility]) Use to test blood sugar 1 times daily 100 each 1 08/04/19 25 026 Active Alcohol Swabs 70 % padsIndications:T ype 2 diabetes mellitus without complication, without long-term current use of insulin ([facility]) Use to test blood sugar 1 times daily 100 each 1 08/04/19 25 Active Blood Glucose Monitoring Suppl (FreeStyle [place] Lite) w/Device kitIndications:Ty pe 2 diabetes mellitus without complication, without long-term current use of insulin ([facility]) Use to test blood sugar 1 times daily 1 kit 08/04/19 25 Active losartan (Cozaar) 100 MG tablet Take 1 tablet (100 mg) by mouth in the morning. 90 tablet 3 08/20/19 25 026 Active melatonin 5 MG tabletIndications :Primary insomnia TAKE 1 TABLET BY MOUTH EVERY DAY AT BEDTIME 30 tablet 2 11/20/19 25 Active hydroCHLOROthiazi de (HYDRODiuril) 50 MG tabletIndications [...] 25 026 Active amLODIPine (Norvasc) 5 MG tabletIndications :Essential hypertension TAKE 1 TABLET BY MOUTH EVERY DAY 90 tablet 3 03/11/20 25 Active atorvastatin (Lipitor) 20 MG tabletIndications :Essential hypertension TAKE 1 TABLET IN THE EVENING EVERY DAY 90 tablet 3 03/11/20 25 Active TRUEplus Lancets 33G miscIndications:T ype 2 diabetes mellitus without complication, without long-term current use of insulin (HCC) USE DIRECTED TO TEST BLOOD SUGAR EVERY DAY 100 each 4 03/11/20 25 Active acetaminophen (Tylenol 8 Hour) 650 MG ER tablet Take 2 tablets by mouth every 8 (eight) hours. 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); Presbyopia of both eyes 05/03/2025 Travel 03/30/2025 Orders Only [facility] External Provider, [facility] 03/15/2025 Orders Only GENERIC EXTERNAL DATA DEPARTMENT Provider, Generic External Data 03/11/2025 Refill [facility] MEDICINE [address] [place] [address] Juana Johnson MD Essential hypertension; Type 2 diabetes mellitus without complication, without long-term current use of insulin (CMS/HCC) 03/03/2025 Orders Only [facility] External Provider, [facility] 02/26/2025 Refill [facility] MED & PEDS [address] [place] [address] Juana Johnson MD Type 2 diabetes mellitus without complication, without long-term current use of insulin ([facility]/HCC) from Last 3 Months Immunizations Immunization Administration [...] 08/20/2025 08/20/2024, 01/03/2023 Lipid Panel 08/20/2025 08/20/2024, 06/02/2023, 09/20/2020 Disability Screening 10/23/2025 10/23/2024 Tobacco Screening 05/19/2026 05/19/2025 Colorectal Cancer Screening 11/05/2026 FIT DNA/Cologuard 11/05/2026 11/06/2023 Eye Exam 05/03/2027 05/03/2025, 1012/2024, 05/03/2025, Additional history exists DTaP/Tdap/Td Vaccines (2 [...] PM EDT Narrative 03/30/2025 3:02 PM EDT [address] [address] Ultrasound Report Signed Patient: Elton Nation MR#: [id number] : 1975 Acct:[id number] Age/Sex: 49 / M ADM Date: 03/30/25 Loc: HO.US Attending Dr: Gary Bains MD Ordering Physician: Gary Bains MD Date of Service: 03/30/25 Procedure(s): US renal BI Accession Number(s): [id number] cc: Gary Bains MD; Juana Johnson MD [...] 03/30/25 1500 DD/ 1432 TD/TT: 03/30/25 1440 Oral Surgeon: Procedure Note Donotuseinterpreter, Image - 03/30/2025 [place] [address] Ultrasound Report Signed Patient: Joelle Nation#: [id number] : 1975Acct:[id number] Age/Sex: 49 / MADM Date: 03/30/25 Loc: HO.US Attending Dr: Gary Bains MD Ordering Physician: Gary Bains MD Date of Service: 03/30/25 Procedure(s): US renal BI Accession Number(s): [id number] cc: Gary Bains MD; Juana Johnson MD [...] 03/30/25 1500 DD/ 1432 TD/TT: 03/30/25 1440 Oral Surgeon: us [facility] External Provider IMG US PROCEDURES Final Result * (ABNORMAL) Glucose, Whole Blood (03/15/2025 9:09 AM EDT) Glucose, Whole Blood 134(H) 60 - 115 mg/dL [facility] Comment:METER #: [id number] 03/15/2025 9:09 AM EDT 03/15/2025 9:23 AM EDT Generic External Data Provider LAB BLOOD ORDERAB LES Final Result Performing Organization Address City/State/[facility] Co de Phone Number [facility] [address] [place] [phone] * XR Fingers 2+ Views Left (03/03/2025 2:30 PM EDT) Anatomical Region Laterality Modality Upper Extremities, Fingers Left Radio graphic Imaging 03/03/2025 2:30 PM EDT Narrative 03/03/2025 2:50 PM EDT [address] [address] XRay Report Signed Patient: Elton Nation MR#: [id number] : 1975 Acct:[id number] Age/Sex: 49 / M ADM Date: 03/03/25 Loc: HO.ED Attending Dr: Ordering Physician: Emily Baker Date of Service: 03/03/25 Procedure(s): XR finger LT min 2V Accession Number(s): [id number] cc: Juana Johnson MD; Emily Baker EXAMINATION: [...] 03/03/25 1447 DD/ 1430 TD/TT: 03/03/25 143 Oral Surgeon: Procedure Note Donotuseinterpreter, Image - 03/03/2025 [place] [address] XRay Report Signed Patient: Elton Nation#: [id number] : 1975Acct:[id number] Age/Sex: 49 / MADM Date: 03/03/25 Loc: HO.ED Attending Dr: Ordering Physician: Emily Baker Date of Service: 03/03/25 Procedure(s): XR finger LT min 2V Accession Number(s): [id number] cc: Juana Johnson MD; Emily Baker EXAMINATION: [...] 03/03/25 1447 DD/ 1430 TD/TT: 03/03/25 1437 Oral Surgeon: [facility] External Provider IMG XR PROCEDURES [...] 9:52 AM EST) Creatinine, Urine 364.36 mg/dL [facility] Microalbumin Urine 1,262.0 mg/L [facility] Microalbum Creatinine Ratio Ur 346.3(H) <30 ug/mg cr [facility] Comment:Albumin/Creatinine R atio Reference Ranges: Normal: < 30 ug/mg creatinine Microalbuminuria: 30 - 300 ug/mg creatinineClinical Albuminuria: > 300 ug/mg creatinine Urine (Urine, Random) 08/20/2024 9:52 AM EST 08/20/2024 11:27 AM EST Juana Adkins MD LAB URINE ORDERABLES Final Result [facility] [address] [place] [phone] * (ABNORMAL) Lipid Panel, Standard (08/20/2024 9:52 AM EST) Triglycerides 251(H) <150 mg/dL [facility] Comment:Desirable Triglyceri de: less than 150 mg/dLBorderline High Triglyceride 150-199 mg/dLHigh Triglyceride: 200-499 mg/dLVery High Triglyceride: greater than or equal to 5OO mg/dL Cholesterol 152 <200 mg/dL [facility] Comment:Desirable Cholestero l: less than 200 mg/dLBorderline High Cholesterol: 200-239 mg/dLHigh Cholesterol: greater than 239 mg/dL LDL Cholesterol Calculated 61 <100 mg/dL [facility] Comment:Desirable LDL: less than 100 mg/dLNear Optimal/Above Optimal LDL: 110- 129 mg/dLBorderline High LDL: 130-159 mg/dLHigh LDL: 160-189 mg/dLVery High LDL: greater than or equal to 190 mg/dL HDL Cholesterol 41 >40 mg/dL [facility] Comment:Desirable HDL: great er than 40 mg/dL Note: This HDL assay may give artificially low results in patients with liver disease. Blood Venous blood specimen / Unknown 08/20/2024 9:52 AM EST 08/20/2024 11:20 AM EST us Juana Adkins MD LAB BLOOD ORDERABLES Final Result [facility] [address] [place] [phone] * Cologuard?? colon cancer screening (11/06/2023 10:00 AM EDT) Cologuard Result Negative Negative 11/13/19 8:34 AM EDT [facility] (CLIA #:[id number]) Comment: NEGATIVE TEST RESULT. A negative Cologuard [...] (Tania Phan al, N Engl J Med 2014;370(14):9563-1139) The normal value (reference range) for this assay is negative. COLOGUARD RE-SCREENING RECOMMENDATION: Periodic colorectal cancer screening is an important part of preventive healthcare for asymptomatic individuals at average risk for colorectal cancer. Following a negative Cologuard result, the [place] Cancer Society and U.S. Multi-Society Task Force screening guidelines recommend a Cologuard re-screening interval of 3 years. References: [place] Cancer [employer] Guideline for Colorectal Cancer Screening: https://www.cancer.org/cancer/robmr-gznzsf-sotalm/omujkditf-nmrplesnh-mqjdaul/ac s-rec ommendations.html.; Del DK, Patience CAVAZOS, Mattehw ChavesK, Colorectal Cancer Screening: Recommendations for Physicians and Patients from the U.S. Multi-Society Task Force on Colorectal Cancer Screening , Am J Gastroenterology 2017; 112:2594-6869. TEST DESCRIPTION: Composite algorithmic analysis of stool [...] (Tania Phan al, N Engl J Med 2014;370(14):0851-2537.) Cologuard may produce a false negative or false positive result (no colorectal cancer or precancerous polyp present at colonoscopy follow up). A negative Cologuard test result does not guarantee the absence of CRC or advanced adenoma (pre-cancer). The current Cologuard screening interval is every 3 years. ([place] Cancer Society and U.S. Multi-Society Task Force). Cologuard performance data in a 10,000 patient pivotal study using colonoscopy as the reference method can be accessed at the following location: www.[employer]/results. Additional description of the Cologuard test process, warnings and precautions can be found at www.cologuard.com. Stool specimen (specimen) 11/06/2023 10:00 AM EDT 11/07/2023 2:00 PM EDT us Juana Adkins MD LAB MOLECULAR DIAGNOS TICS ORDERABLES Final Result Performing Organization Address [facility] Co de Phone Number [facility] (CLIA #:[id number]) [address] [place] [address], * HEPATITIS C ANTIBODY RFLX (07/21/2019 9:00 AM EST) [facility] HEPATITIS C ANTIBODY NONREACTIVE NONREACTIVE [facility] Comment: Antibodies to HCV not detected; does not exclude early acute HCV infection. 07/21/2019 9:00 AM EST us Juana Adkins MD HISTORICAL/NON ORDERA BLE LABS Final Result Performing Organization Address [facility] Co de Phone Number [facility] [address] * HIV AB/AG (07/21/2019 9:00 AM EST) Pathologist [facility] HIV AG/AB NONREACTIVE NR FOUNDATI ON LAB [...] of detection of this assay. The [employer] HIV Ag/Ab Combo assay result and supplemental assay results should be interpreted in conjunction with the patient's clinical presentation, history and other laboratory results. If the results are inconsistent with clinical evidence, additional testing is suggested to confirm the result. 07/21/2019 9:00 AM EST us Juana Adkins MD HISTORICAL/NON ORDERA BLE LABS Final Result [facility] [address] from Last 3 Months or Most Recently Relevant to Health Maintenance Insurance [facility] < [address] [place] [phone] Care Teams Consulting Engineer Relationship Specialty Start Date End Date Juana Johnson MD [address] [place] [address] PCP - General Family Medicine 08/12/18
== END 2025-05-18 10:24 | disposition home or self-care (01) ==
LOC: HO.HOSX 10:23
PROVIDERS: Visit Provider Orthopaedic Surgery
DX: S62.633D Displaced fracture of distal phalanx of left middle finger, subsequent encounter for fracture with routine healing (principal); E11.9 Type 2 diabetes mellitus without complications; W23.0XXD Caught, crushed, jammed, or pinched between moving objects, subsequent encounter
CPT/HCPCS: 73130; 99212

== ENCOUNTER 2025-05-18 11:20 | Outpatient (AMB) | payer OTHER, SELFPAY ==
[2025-05-18 11:25] VITALS: BMI 35.3
--- NOTE | 2025-05-18 11:25 | A.OFFVIS_ITS ---
Vital Signs 05/18/25 11:25 Height 5 ft 10 in Weight 246 lb BMI 35.3 Intake Visit Reasons: PO LT MF I&D/revsn amp/removal nail bed 03/15/25 AR Intake Note: Elton 49 yr old male presents today for his P/O visit for his left middle finger I&D Dr Han on 03/15/25. Dressing removed in office. Patient is here for a wound check. States he dis-continue to do daily dressing changes. Allergies Seasonal Allergies Allergy (Unknown, Verified 05/18/25 11:25) Unknown HPI HPI PO LT MF I&D/revsn amp/removal nail bed 03/15/25 AR: Details: Elton is a 49 year old right hand dominant man who presents S/P let middle finger I&D of open left middle finger distal phalanx fracture, DOS: 03/15/25. He is S/P left middle finger near amputation with an area of skin loss over the volar aspect of the pad & open distal phalanx tuft fracture, DOI: 03/03/25, crushing his finger with a car david in his garage. He says he is doing well. He has completed his course of Abx & continues with daily dressing changes at home. He does not work and is on Disability due to a Hx of bilateral wrist injuries in the past. [facility] Medical History Hypertension Knee arthropathy Anemia Social History Household Members: Spouse and Children Are you a primary account executive healthcare to a significant other at home: No Do you presently have visiting nurse or other home services: No Alcohol intake: never Patient Tobacco Use Status: Never used Tobacco Second Hand Smoke Exposure: No Current occupational status: unemployed Current occupation: rt handed Review of Systems Const All systems reviewed & are unremarkable except as noted in HPI and below Physical Exam Vital Signs: BMI result Body Mass Index 35.3 Const General: no acute distress and alert Orientation/consciousness: patient oriented x3 Neuro General: patient oriented x3 Extrem Other: Evaluation of Left Upper Extremity: The patient is alert, oriented, and in no acute distress Neuro: Median, Ulnar, Radial nerves motor and sensory intact and sensation is normal to the tips of all digits Vascular: Cap refill brisk ROM: He can make a fist and extend all his digits Small bit of granulation tissue, ~2mm*8mm in size, of the wound that is not completely sealed over No evidence of infection No tenderness Middle & ring finger distal phalanx both non-tender Radiographs: 3 views of the left hand were taken & viewed by me today in clinic. They show a middle finger open distal phalanx fracture with satisfactory fracture alignment and some evidence of interval bony healing. Psych Appearance: grossly normal Affect: normal affect Attitude: cooperative Assessment & Plan Assessment & Plan (1) Open fracture of distal phalanx of left middle finger: Code(s): S62.633B - Displaced fracture of distal phalanx of left middle finger, initial encounter for open fracture Category: Medical (2) Diabetes mellitus: Code(s): E11.9 - Type 2 diabetes mellitus without complications Category: Medical Plan Assessment & Plan: 1. Left middle finger near amputation with an area of skin loss over the volar aspect of the pad 2. Left middle finger open distal phalanx tuft fracture S/P I&D, DOS: 03/15/25 From a crush injury, DOI: 03/03/25 The patient appears to be doing well post-operatively I educated him about the post-operative course He will continue to perform daily wound care I discussed activity modifications, he will perform ROM exercises at home He will follow up prn Scribed for Sonja Han MD by Con Vitale, medical technologist microbiology, on 05/18/25 at 11:35 AM, EST. Orders: Orders XR hand LT min 3V Today M79.642 - Pain in left hand Scribe Plan - Not visible on output: Scribed for Sonja Han MD by Con Vitale medical technologist microbiology, on [ ] at [ ], EST. Coding Level of Care Code Global (71841) Diagnoses Open fracture of distal phalanx of left middle finger S62.633B Diabetes mellitus E11.9
--- OUTSIDE RECORDS SUMMARY | 2025-05-18 14:26 | XMS_ITS | Clinical Summary ---
Author Organization [employer] Address [address] [facility] [address] [place] [address] Care Team Providers Care Card Stripper Name Role Phone Juana Johnson MD Primary [...] 1 Active ergocalciferol (Vitamin D-2) 1.25 MG (73004 UT) capsule take 1 capsule by oral [...] without long-term current use of insulin ([facility]) 1 each 2 times daily. 100 each 3 4 Active colchicine 0.6 MG tabletIndications :Articular gout Take 1 tablet (0.6 mg) by mouth Once per day. 60 tablet 6 4 Active Lancets miscIndications:T ype 2 diabetes mellitus without complication, without long-term current use of insulin ([facility]) Use to test blood sugar [...] without long-term current use of insulin ([facility]) Use to test blood sugar 1 times daily 100 each 1 5 08/04/19 26 Active Alcohol Swabs 70 % padsIndications:T ype 2 diabetes mellitus without complication, without long-term current use of insulin ([facility]) Use to test blood sugar 1 times daily 100 each 1 5 Active Blood Glucose Monitoring Suppl (FreeStyle [place] Lite) w/Device kitIndications:Ty pe 2 diabetes mellitus without complication, without long-term current use of insulin ([facility]) Use to test blood sugar [...] Description 05/03/2025 2:00 PM EDT Office Visit [facility] [address] [place] [address] Prema Martínez, OD Diabetes type 2, 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); Dry eye syndrome of both eyes; Presbyopia of both eyes 05/03/2025 Travel 03/30/2025 Orders Only [facility] External Provider, [facility] 03/15/2025 Orders Only GENERIC EXTERNAL DATA DEPARTMENT Provider, Generic External Data 03/11/2025 Refill [facility] [address] [place] [address] Juana Johnson MD Essential hypertension; Type 2 diabetes mellitus without complication, without long-term current use of insulin ([facility]) 03/03/2025 Orders Only [facility] External Provider, [facility] 02/26/2025 Refill [facility] [address] [place] [address] Juana Johnson MD Type 2 diabetes mellitus without complication, without long-term current use of insulin ([facility]) from Last 3 Months Immunizations Immunization Administration [...] PM EDT Narrative 03/30/2025 3:02 PM EDT [address] [address] Ultrasound Report Signed Patient: Elton Nation MR#: [id number] : 1975 Acct:[id number] Age/Sex: 49 / M ADM Date: 03/30/25 Loc: HO.US Attending Dr: Gary Bains MD Ordering Physician: Gary Bains MD Date of Service: 03/30/25 Procedure(s): US renal BI Accession Number(s): [id number] cc: Gary Bains MD; Juana Johnson MD [...] 03/30/25 1500 DD/ 1432 TD/TT: 03/30/25 1440 Geospatial Image Analyst: Procedure Note Donotuseinterpreter, Image - 03/30/[address] [address] Ultrasound Report Signed Patient: Elton NationMR#: [id number] : 1975Acct:[id number] Age/Sex: 49 / MADM Date: 03/30/25 Loc: HO.US Attending Dr: Gary Bains MD Ordering Physician: Gary Bains MD Date of Service: 03/30/25 Procedure(s): US renal BI Accession Number(s): [id number] cc: Gary Bains MD; Juana Johnson MD [...] 03/30/25 1500 DD/ 1432 TD/TT: 03/30/25 1440 Geospatial Image Analyst: us [facility] External Provider IMG US PROCEDURES Final Result * (ABNORMAL) Glucose, Whole Blood (03/15/2025 9:09 AM EDT) Glucose, Whole Blood 134(H) 60 - 115 mg/dL [facility] Comment:METER #: [id number] 03/15/2025 9:09 AM EDT 03/15/2025 9:23 AM EDT Generic External Data Provider LAB BLOOD ORDERAB LES Final Result Performing Organization Address City/State/[facility] Co de Phone Number [facility] [address] [place] [phone] * XR Fingers 2+ Views Left (03/03/2025 2:30 PM EDT) Anatomical Region Laterality Modality Upper Extremities, Fingers Left Radio graphic Imaging 03/03/2025 2:30 PM EDT Narrative 03/03/2025 2:50 PM EDT [address] [address] XRay Report Signed Patient: Elton Nation MR#: [id number] : 1975 Acct:[id number] Age/Sex: 49 / M ADM Date: 03/03/25 Loc: HO.ED Attending Dr: Ordering Physician: Emily Baker Date of Service: 03/03/25 Procedure(s): XR finger LT min 2V Accession Number(s): [id number] cc: Juana Johnson MD; Emily Baker EXAMINATION: [...] 03/03/25 1447 DD/ 1430 TD/TT: 03/03/25 1437 Geospatial Image Analyst: Procedure Note Donotuseinterpreter, Image - 03/03/[address] [address] XRay Report Signed Patient: Elton Nation#: [id number] : 1975Acct:[id number] Age/Sex: 49 / MADM Date: 03/03/25 Loc: HO.ED Attending Dr: Ordering Physician: Emily Baker Date of Service: 03/03/25 Procedure(s): XR finger LT min 2V Accession Number(s): [id number] cc: Juana Johnson MD; Emily Baker EXAMINATION: [...] 03/03/25 1447 DD/ 1430 TD/TT: 03/03/25 1437 Geospatial Image Analyst: us [facility] External Provider IMG XR PROCEDURES Final [...] 9:52 AM EST) Creatinine, Urine 364.36 mg/dL [facility] Microalbumin Urine 1,262.0 mg/L [facility] Microalbum Creatinine Ratio Ur 346.3(H) <30 ug/mg cr [facility] Comment:Albumin/Creatinine R atio Reference Ranges: Normal: < 30 ug/mg creatinine Microalbuminuria: 30 - 300 ug/mg creatinineClinical Albuminuria: > 300 ug/mg creatinine Urine (Urine, Random) 08/20/2024 9:52 AM EST 08/20/2024 11:27 AM EST Juana Adkins MD LAB URINE ORDERABLES Final Result [facility] [address] [place] [phone] * (ABNORMAL) Lipid Panel, Standard (08/20/2024 9:52 AM EST) Triglycerides 251(H) <150 mg/dL [facility] Comment:Desirable Triglyceri de: less than 150 mg/dLBorderline High Triglyceride 150-199 mg/dLHigh Triglyceride: 200-499 mg/dLVery High Triglyceride: greater than or equal to 5OO mg/dL Cholesterol 152 <200 mg/dL [facility] Comment:Desirable Cholestero l: less than 200 mg/dLBorderline High Cholesterol: 200-239 mg/dLHigh Cholesterol: greater than 239 mg/dL LDL Cholesterol Calculated 61 <100 mg/dL [facility] Comment:Desirable LDL: less than 100 mg/dLNear Optimal/Above Optimal LDL: 110- 129 mg/dLBorderline High LDL: 130-159 mg/dLHigh LDL: 160-189 mg/dLVery High LDL: greater than or equal to 190 mg/dL HDL Cholesterol 41 >40 mg/dL [facility] Comment:Desirable HDL: great er than 40 mg/dL Note: This HDL assay may give artificially low results in patients with liver disease. Blood Venous blood specimen / Unknown 08/20/2024 9:52 AM EST 08/20/2024 11:20 AM EST Juana Adkins MD LAB BLOOD ORDERABLES Final Result [facility] [address] [place] [phone] * Cologuard?? colon cancer screening (11/06/2023 10:00 AM EDT) Cologuard Result Negative Negative 11/13/19 8:34 AM EDT [facility] (CLIA #:[id number]) Comment: NEGATIVE TEST RESULT. A negative Cologuard [...] (Tania Phan al, N Engl J Med 2014;370(14):8690-8901) The normal value (reference range) for this assay is negative. COLOGUARD RE-SCREENING RECOMMENDATION: Periodic colorectal cancer screening is an important part of preventive healthcare for asymptomatic individuals at average risk for colorectal cancer. Following a negative Cologuard result, the [employer] Cancer Society and U.S. Multi-Society Task Force screening guidelines recommend a Cologuard re-screening interval of 3 years. References: [employer] Society Guideline for Colorectal Cancer Screening: https://www.cancer.org/cancer/lunfu-mavuir-oqdqti/rzgbaohzq-dihqzpleq-bbjifqe/ac s-rec ommendations.html.; Del DK, Patience CAVAZOS, Matthew KILPATRICK, Colorectal Cancer Screening: Recommendations for Physicians and Patients from the U.S. Multi-Society Task Force on Colorectal Cancer Screening , Am J Gastroenterology 2017; 112:3928-0530. TEST DESCRIPTION: Composite algorithmic analysis of stool [...] (Tania Phan al, N Engl J Med 2014;370(14):7432-6559.) Cologuard may produce a false negative or false positive result (no colorectal cancer or precancerous polyp present at colonoscopy follow up). A negative Cologuard test result does not guarantee the absence of CRC or advanced adenoma (pre-cancer). The current Cologuard screening interval is every 3 years. ([employer] Cancer Society and U.S. Multi-Society Task Force). Cologuard performance data in a 10,000 patient pivotal study using colonoscopy as the reference method can be accessed at the following location: www.[employer]/results. Additional description of the Cologuard test process, warnings and precautions can be found at www.cologuard.com. Stool specimen (specimen) 11/06/2023 10:00 AM EDT 11/07/2023 2:00 PM EDT us Juana Adkins MD LAB MOLECULAR DIAGNOS TICS ORDERABLES Final Result Performing Organization Address [facility]/ZIP Co de Phone Number [facility] (CLIA #:[id number]) [address] [phone] * HEPATITIS C ANTIBODY RFLX (07/21/2019 9:00 AM EST) Pathologist [facility] HEPATITIS C ANTIBODY NONREACTIVE NONREACTIVE [facility] Comment: Antibodies to HCV not detected; does not exclude early acute HCV infection. 07/21/2019 9:00 AM EST us Juana Adkins MD HISTORICAL/NON ORDERA BLE LABS Final Result Performing Organization Address [facility] Co de Phone Number [facility] [address] * HIV AB/AG (07/21/2019 9:00 AM EST) Pathologist [facility] HIV AG/AB NONREACTIVE NR F[facility]AT[facility] ON [...] of detection of this assay. The [employer] HIV Ag/Ab Combo assay result and supplemental assay results should be interpreted in conjunction with the patient's clinical presentation, history and other laboratory results. If the results are inconsistent with clinical evidence, additional testing is suggested to confirm the result. 07/21/2019 9:00 AM EST us Juana Adkins MD HISTORICAL/NON ORDERA BLE LABS Final Result [facility] [address] from Last 3 Months or Most Recently Relevant to Health Maintenance Insurance [facility] < [address] [place] [id number] Care Teams Card Stripper Relationship Specialty Start Date End Date Juana Johnson MD [address] [place] [address] PCP - General Family Medicine 08/12/18
== END 2025-05-18 11:40 | disposition home or self-care (01) ==
LOC: HO.HOS 11:21
PROVIDERS: PCP Internal Medicine; Visit Provider Orthopaedic Surgery
DX: S62.633B Displaced fracture of distal phalanx of left middle finger, initial encounter for open fracture (principal); E11.9 Type 2 diabetes mellitus without complications
CPT/HCPCS: 99213

== ENCOUNTER → 2025-05-18 11:23 | Outpatient (BNV) | payer OTHER, SELFPAY | PROVIDERS: Visit Provider Radiology Diagnostic Radiology | DX: M79.642 Pain in left hand (principal) | CPT/HCPCS: 73130 ==

== ENCOUNTER 2025-05-21 09:52 | Outpatient (REF) | payer OTHER, SELFPAY ==
--- OUTSIDE RECORDS SUMMARY | 2025-05-21 11:08 | XMS_ITS | Clinical Summary ---
Author Organization [employer] Address [address] [facility] [address] [place] [address] Care Team Providers Care Ui Architect Name Role Phone Juana Johnson MD Primary [...] 21 Active ergocalciferol (Vitamin D-2) 1.25 MG (80738 UT) capsule take 1 capsule by oral [...] long-term current use of insulin ([facility]) 1 each 2 times daily. 100 each 3 12/24/19 24 Active colchicine 0.6 MG tabletIndications :Articular gout Take 1 tablet (0.6 mg) by mouth Once per day. 60 tablet 6 12/24/19 24 Active Lancets miscIndications:T ype 2 diabetes mellitus without complication, without long-term current use of insulin ([facility]) Use to test blood sugar 2 [...] long-term current use of insulin ([facility]) Use to test blood sugar 1 times daily 100 each 1 08/04/19 25 026 Active Alcohol Swabs 70 % padsIndications:T ype 2 diabetes mellitus without complication, without long-term current use of insulin ([facility]) Use to test blood sugar 1 times daily 100 each 1 08/04/19 25 Active Blood Glucose Monitoring Suppl (FreeStyle [place] Lite) w/Device kitIndications:Ty pe 2 diabetes mellitus without complication, without long-term current use of insulin ([facility]) Use to test blood sugar 1 [...] 05/03/2025 2:00 PM EDT Office Visit [facility] OPTOMETRY [address] [place] [address] Prema Martínez, OD Diabetes type 2, 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); Presbyopia of both eyes 05/03/2025 Travel 03/30/2025 Orders Only [facility] External Provider, [facility] 03/15/2025 Orders Only GENERIC EXTERNAL DATA DEPARTMENT Provider, Generic External Data 03/11/2025 Refill [facility] MEDICINE [address] [place] [address] Juana Johnson MD Essential hypertension; Type 2 diabetes mellitus without complication, without long-term current use of insulin (CMS/HCC) 03/03/2025 Orders Only [facility] External Provider, [facility] 02/26/2025 Refill [facility] CH[facility] MED & PEDS [address] [place] [address] Juana Johnson MD Type 2 diabetes mellitus without complication, without long-term current use of insulin ([facility]/HCC) from Last 3 Months Immunizations Immunization Administration [...] PM EDT Narrative 03/30/2025 3:02 PM EDT [address] [address] Ultrasound Report Signed Patient: Elton Nation MR#: [id number] : 1975 Acct:[id number] Age/Sex: 49 / M ADM Date: 03/30/25 Loc: HO.US Attending Dr: Gary Bains MD Ordering Physician: Gary Bains MD Date of Service: 03/30/25 Procedure(s): US renal BI Accession Number(s): [id number] cc: Gary Bains MD; Juana Johnson MD [...] 03/30/25 1500 DD/ 1432 TD/TT: 03/30/25 1440 Concierge Receptionist: Procedure Note Donotuseinterpreter, Image - 03/30/2025 [place] [address] Ultrasound Report Signed Patient: Joelle Nation#: [id number] : 1975Acct:[id number] Age/Sex: 49 / MADM Date: 03/30/25 Loc: HO.US Attending Dr: Gary Bains MD Ordering Physician: Gary Bains MD Date of Service: 03/30/25 Procedure(s): US renal BI Accession Number(s): [id number] cc: Gary Bains MD; Juana Johnson MD [...] 03/30/25 1500 DD/ 1432 TD/TT: 03/30/25 1440 Concierge Receptionist: us [facility] External Provider IMG US PROCEDURES Final Result * (ABNORMAL) Glucose, Whole Blood (03/15/2025 9:09 AM EDT) Glucose, Whole Blood 134(H) 60 - 115 mg/dL [facility] Comment:METER #: [id number] 03/15/2025 9:09 AM EDT 03/15/2025 9:23 AM EDT Generic External Data Provider LAB BLOOD ORDERAB LES Final Result Performing Organization Address City/State/[facility] Co de Phone Number [facility] [address] [place] [phone] * XR Fingers 2+ Views Left (03/03/2025 2:30 PM EDT) Anatomical Region Laterality Modality Upper Extremities, Fingers Left Radio graphic Imaging 03/03/2025 2:30 PM EDT Narrative 03/03/2025 2:50 PM EDT [address] [address] XRay Report Signed Patient: Elton Nation MR#: [id number] : 1975 Acct:[id number] Age/Sex: 49 / M ADM Date: 03/03/25 Loc: HO.ED Attending Dr: Ordering Physician: Emily Baker Date of Service: 03/03/25 Procedure(s): XR finger LT min 2V Accession Number(s): [id number] cc: Juana Johnson MD; Emily Baker EXAMINATION: [...] 03/03/25 1447 DD/ 1430 TD/TT: 03/03/25 143 Concierge Receptionist: Procedure Note Donotuseinterpreter, Image - 03/03/2025 [place] [address] XRay Report Signed Patient: Elton Nation#: [id number] : 1975Acct:[id number] Age/Sex: 49 / MADM Date: 03/03/25 Loc: HO.ED Attending Dr: Ordering Physician: Emily Baker Date of Service: 03/03/25 Procedure(s): XR finger LT min 2V Accession Number(s): [id number] cc: Juana Johnson MD; Emily Baker EXAMINATION: [...] 03/03/25 1447 DD/ 1430 TD/TT: 03/03/25 1437 Concierge Receptionist: [facility] External Provider IMG XR PROCEDURES Final Result * (ABNORMAL) POCT HGB A1C (10/23/2024 11:25 AM EDT) Hemoglobin A1C 6.7(A) 4.0 - 6.0 % QC Media Lot # [id number] Lot# Expiration Date Blood 10/23/2024 11:2 5 AM EDT Juana Adkins MD POINT OF CARE TEST EN TER/EDIT ORDERABLES Final Result * (ABNORMAL) Albumin, Random Urine W/Creatinine (08/20/2024 9:52 AM EST) Creatinine, Urine 364.36 mg/dL [facility] Microalbumin Urine 1,262.0 mg/L [facility] Microalbum Creatinine Ratio Ur 346.3(H) <30 ug/mg cr [facility] Comment:Albumin/Creatinine R atio Reference Ranges: Normal: < 30 ug/mg creatinine Microalbuminuria: 30 - 300 ug/mg creatinineClinical Albuminuria: > 300 ug/mg creatinine Urine (Urine, Random) 08/20/2024 9:52 AM EST 08/20/2024 11:27 AM EST Juana Adkins MD LAB URINE ORDERABLES Final Result [facility] [address] [place] [phone] * (ABNORMAL) Lipid Panel, Standard (08/20/2024 9:52 AM EST) Triglycerides 251(H) <150 mg/dL [facility] Comment:Desirable Triglyceri de: less than 150 mg/dLBorderline High Triglyceride 150-199 mg/dLHigh Triglyceride: 200-499 mg/dLVery High Triglyceride: greater than or equal to 5OO mg/dL Cholesterol 152 <200 mg/dL [facility] Comment:Desirable Cholestero l: less than 200 mg/dLBorderline High Cholesterol: 200-239 mg/dLHigh Cholesterol: greater than 239 mg/dL LDL Cholesterol Calculated 61 <100 mg/dL [facility] Comment:Desirable LDL: less than 100 mg/dLNear Optimal/Above Optimal LDL: 110- 129 mg/dLBorderline High LDL: 130-159 mg/dLHigh LDL: 160-189 mg/dLVery High LDL: greater than or equal to 190 mg/dL HDL Cholesterol 41 >40 mg/dL [facility] Comment:Desirable HDL: great er than 40 mg/dL Note: This HDL assay may give artificially low results in patients with liver disease. Blood Venous blood specimen / Unknown 08/20/2024 9:52 AM EST 08/20/2024 11:20 AM EST us Juana Adkins MD LAB BLOOD ORDERABLES Final Result [facility] [address] [place] [phone] * Cologuard?? colon cancer screening (11/06/2023 10:00 AM EDT) Cologuard Result Negative Negative 11/13/19 8:34 AM EDT [facility] (CLIA #:[id number]) Comment: NEGATIVE TEST RESULT. A negative Cologuard [...] (Tania Phan al, N Engl J Med 2014;370(14):8330-6280) The normal value (reference range) for this assay is negative. COLOGUARD RE-SCREENING RECOMMENDATION: Periodic colorectal cancer screening is an important part of preventive healthcare for asymptomatic individuals at average risk for colorectal cancer. Following a negative Cologuard result, the [place] Cancer Society and U.S. Multi-Society Task Force screening guidelines recommend a Cologuard re-screening interval of 3 years. References: [place] Cancer Society Guideline for Colorectal Cancer Screening: https://www.cancer.org/cancer/efnko-kvlozg-zeoplr/ubgmydfkt-varupyvwv-mmjinzn/ac s-rec ommendations.html.; Del DK, Patience CAVAZOS, Matthew ChavesK, Colorectal Cancer Screening: Recommendations for Physicians and Patients from the U.S. Multi-Society Task Force on Colorectal Cancer Screening , Am J Gastroenterology 2017; 112:2085-7284. TEST DESCRIPTION: Composite algorithmic analysis of stool [...] (Tania Phan al, N Engl J Med 2014;370(14):3299-4820.) Cologuard may produce a false negative or false positive result (no colorectal cancer or precancerous polyp present at colonoscopy follow up). A negative Cologuard test result does not guarantee the absence of CRC or advanced adenoma (pre-cancer). The current Cologuard screening interval is every 3 years. ([place] Cancer Society and U.S. Multi-Society Task Force). Cologuard performance data in a 10,000 patient pivotal study using colonoscopy as the reference method can be accessed at the following location: www.[employer]/results. Additional description of the Cologuard test process, warnings and precautions can be found at www.cologuard.com. Stool specimen (specimen) 11/06/2023 10:00 AM EDT 11/07/2023 2:00 PM EDT us Juana Adkins MD LAB MOLECULAR DIAGNOS TICS ORDERABLES Final Result Performing Organization Address [facility] Co de Phone Number [facility] (CLIA #:[id number]) [address] [place] [address], * HEPATITIS C ANTIBODY RFLX (07/21/2019 9:00 AM EST) [facility] HEPATITIS C ANTIBODY NONREACTIVE NONREACTIVE [facility] Comment: Antibodies to HCV not detected; does not exclude early acute HCV infection. 07/21/2019 9:00 AM EST us Juana Adkins MD HISTORICAL/NON ORDERA BLE LABS Final Result Performing Organization Address [facility] Co de Phone Number [facility] [address] * HIV AB/AG (07/21/2019 9:00 AM EST) Pathologist [facility] HIV AG/AB NONREACTIVE NR FOUNDATI ON [...] of detection of this assay. The [employer] HIV Ag/Ab Combo assay result and supplemental assay results should be interpreted in conjunction with the patient's clinical presentation, history and other laboratory results. If the results are inconsistent with clinical evidence, additional testing is suggested to confirm the result. 07/21/2019 9:00 AM EST us Juana Adkins MD HISTORICAL/NON ORDERA BLE LABS Final Result [facility] [address] from Last 3 Months or Most Recently Relevant to Health Maintenance Insurance [facility] < [address] [place] [phone] Care Teams Ui Architect Relationship Specialty Start Date End Date Juana Johnson MD [address] [place] [address] PCP - General Family Medicine 08/12/18
[2025-05-21 12:26] LABS: Anion Gap 12 (12-20); Blood Urea Nitrogen 30 mg/dL (9-16); Calcium 9.5 mg/dL (8.4-10.2); Carbon Dioxide 28 mmol/L (22-29); Chloride 107 mmol/L (96-108); Estimated Glomerular Filt Rate 46; Potassium 3.6 mmol/L (3.3-5.1); Sodium 143 mmol/L (135-145)
[2025-05-21 12:43] LABS: Appearance Urine Clear; Glucose Urine UA Negative (Negative); PH 5.5 (5.0-9.0); Specific Gravity - Urine 1.015 (1.005-1.025); UMIC TRIGGER UA YES
[2025-05-21 12:48] LABS: Prostate Specific Antigen 0.90 ng/mL (<0.05-4.0)
[2025-05-21 13:06] LABS: Total Protein Urine Random 79 mg/dL (<12)
[2025-05-29 21:48] LABS: Testosterone, Free 52.0 pg/mL (35.0-155.0)
[2025-05-30 02:00] LABS: Estradiol Ultra Sensitive 21 pg/mL (< OR = 29)
== END 2025-05-21 09:53 | disposition home or self-care (01) ==
LOC: HO.HHCL 09:52
PROVIDERS: PCP Internal Medicine; Referring Provider Internal Medicine Hypertension Specialist; Visit Provider Nurse Practitioner Family
DX: E29.1 Testicular hypofunction (principal); R80.9 Proteinuria, unspecified; R31.29 Other microscopic hematuria; Z12.5 Encounter for screening for malignant neoplasm of prostate
CPT/HCPCS: 36415; 80048; 81001; 82570; 82670; 83002; 84146; 84153; 84156; 84270; 84402; 84403; 88112

== ENCOUNTER 2025-06-08 08:09 | Outpatient (REF) | payer OTHER, SELFPAY | END 2025-06-08 08:10 | disposition home or self-care (01) | LOC: HO.LAB 08:09 | PROVIDERS: PCP Internal Medicine; Visit Provider Nurse Practitioner Family | DX: E29.1 Testicular hypofunction (principal); E11.69 Type 2 diabetes mellitus with other specified complication; N52.1 Erectile dysfunction due to diseases classified elsewhere; R31.29 Other microscopic hematuria; R68.82 Decreased libido | CPT/HCPCS: 81003; 88112; 99212 ==

== ENCOUNTER 2025-06-08 08:09 | Outpatient (AMB) | payer OTHER, SELFPAY ==
--- OUTSIDE RECORDS SUMMARY | 2025-06-08 08:13 | XMS_ITS | Clinical Summary ---
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 100 each 3 12/24/19 Active Lancets miscIndications: Type 2 diabetes mellitus without complication, without long-term current use of insulin ([facility]) Use to test blood sugar 2 times daily 100 each 12/24/19 24 Active naproxen (Naprosyn) 500 MG tablet TAKE 1 TABLET BY MOUTH TWICE DAILY IN THE MORNING AND IN THE EVENING WITH MEALS 60 tablet 1 03/26/20 Active Blood Pressure Monitoring (Blood Pressure Cuff) miscIndications: Essential hypertension 1 each Once daily. 1 each 08/04/19 25 Active FREESTYLE LITE test stripIndications :Type 2 diabetes mellitus without complication, without long-term current use of insulin ([facility]) Use to test blood sugar 1 times daily 100 each 1 08/04/19 25 2025 Active Alcohol Swabs 70 % padsIndications: Type 2 diabetes mellitus without complication, without long-term current use of insulin ([facility]) Use to test blood sugar 1 times daily 100 each 1 08/04/19 25 Active Blood Glucose Monitoring Suppl (FreeStyle [place] Lite) w/Device kitIndications:T ype 2 diabetes mellitus without complication, without long-term current use of insulin ([facility]) Use to test blood sugar 1 [...] complication, without long-term current use of insulin ([facility]) Take 1 tablet (500 mg) by mouth with evening meal. Do not crush, chew, or split. 30 tablet 11 02/27/20 25 2025 Active amLODIPine (Norvasc) 5 [...] DAY 100 each 4 03/11/20 25 Active colchicine 0.6 MG tabletIndication s:Articular gout TAKE 1 TABLET BY MOUTH EVERY DAY 90 tablet 1 05/28/20 25 Active acetaminophen (Tylenol 8 Hour) 650 MG ER tablet Take 2 tablets by mouth every 8 (eight) hours. 12/21/19 21 2024 Discontinued(T herapy completed) colchicine 0.6 MG tabletIndication s:Articular gout Take 1 tablet (0.6 mg) by mouth Once per day. 60 tablet 6 12/24/19 24 2024 Discontinued Active Problems Problem Noted Date [...] Encounters Date Type Department Care Team Description 05/28/2025 Refill [facility] [address] [place] [address] Juana Johnson MD Articular gout 05/21/2025 Orders Only GENERIC EXTERNAL DATA DEPARTMENT Provider, Generic External Data 05/03/2025 2:00 PM EDT Office Visit [facility] [address] [place] [address] Mauricio, Prema, OD Diabetes type 2, 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); Presbyopia of both eyes 05/03/2025 Travel 03/30/2025 Orders Only [facility] External Provider, [facility] 03/15/2025 Orders Only GENERIC EXTERNAL DATA DEPARTMENT Provider, Generic External Data 03/11/2025 Refill [facility] [address] [place] [address] Juana Johnson MD Essential hypertension; Type 2 diabetes mellitus without complication, without long-term current use of insulin ([facility]/HCC) from Last 3 Months Immunizations Immunization [...] exists Depression Screening 08/04/2025 08/04/2024, 08/04/19 25 Lipid Panel 08/20/2025 08/20/2024, 0602/2023, 09/20/2020 Disability Screening 10/23/2025 10/23/2024 Tobacco Screening 05/19/2026 05/19/2025 Diabetes: Urine Protein Screening 05/21/2026 05/21/2025, 08/20/2024, 01/03/2023 Colorectal Cancer Screening 11/05/2026 FIT DNA/Cologuard 11/05/2026 [...] Procedure Name Priority Date/Time Associated Diagnosis Comments ESTRADIOL Routine 05/21/2025 10:00 AM EDT TESTOSTERONE, FREE (DIALYSIS) AND TOTAL,MS Routine 05/21/2025 10:00 AM EDT SEX HORMONE BINDING GLOBULIN Routine 05/21/2025 10:00 AM EDT PROLACTIN Routine 05/21/2025 10:00 AM EDT LH Routine 05/21/2025 10:00 AM EDT URINE PROTEIN, TOTAL, RANDOM (W/O CREATININE) Routine 05/21/2025 10:00 AM EDT CREATININE, RANDOM URINE Routine 05/21/2025 10:00 AM EDT PSA, TOTAL Routine 05/21/2025 10:00 AM EDT URINALYSIS, COMPLETE Routine 05/21/2025 10:00 AM EDT BASIC METABOLIC PANEL Routine 05/21/2025 10:00 AM EDT CYTOPATH-CELL ENHANCED Routine 05/21/2025 9:56 AM EDT US RENAL COMPLETE Routine 03/30/2025 2:3 2 PM EDT GLUCOSE, WHOLE BLOOD Routine 03/15/2025 9:09 AM EDT POCT GLYCATED HEMOGLOBIN, TOTAL Routine 10/23/2024 [...] Recently Relevant to Health Maintenance Results * Sex Hormone Binding Globulin (SHBG) (05/21/2025 10:00 AM EDT) Sex Hormone Binding Globulin 12 10 - 50 nmol/L [facility] Comment:THIS TEST WAS PERFOR MED AT:[employer] [place] [phone] RODRIGUEZ MD 05/21/2025 10:0 0 AM EDT 05/21/2025 11:20 AM EDT us Generic External Data Provider LAB BLOOD ORDERAB LES Final Result [facility] [address] [place] [phone] * (ABNORMAL) Urine Protein, Total, Random without Creatinine (05/21/2025 10:00 AM EDT) Protein, Total, Random Urine 79(H) <12 mg/dL [facility] 05/21/2025 10:0 0 AM EDT 05/21/2025 12:20 PM EDT us Generic External Data Provider LAB URINE ORDERAB LES Final Result Performing Organization Address [facility] Co de Phone Number [facility] [address] [place] [phone] * Creatinine, Random Urine (05/21/2025 10:00 AM EDT) Creatinine, Urine 112.46 mg/dL [facility] 05/21/2025 10:0 0 AM EDT 05/21/2025 12:20 PM EDT Generic External Data Provider LAB URINE ORDERAB LES Final Result Performing Organization Address [facility] Phone Number [facility] [address] [place] [phone] * Prolactin (05/21/2025 10:00 AM EDT) Prolactin 10.4 2.0 - 18.0 ng/mL [facility] Comment:THIS TEST WAS PERFOR MED AT:[employer] [place] [phone] RODRIGUEZ MD 05/21/2025 10:0 0 AM EDT 05/21/2025 11:20 AM EDT Generic External Data Provider LAB BLOOD ORDERAB LES Final Result Performing Organization Address [facility] Co de Phone Number [facility] [address] [place] [phone] * Estradiol (05/21/2025 10:00 AM EDT) Estradiol Ultra Sensitive 21 < OR = 29 pg/mL [facility] Comment:This test was develo ped and its analytical performancecharacteristics have been determined by [employer].It has not been cleared or approved by the FDA. This assayhas been validated pursuant to the CLIA regulations and isused for clinical purposes.THIS TEST WAS PERFORMED AT:[employer] [id number] [place] [phone] NAZARIO MD,PHD,DUSTIN 05/21/2025 10:0 0 AM EDT 05/21/2025 11:20 AM EDT us Generic External Data Provider LAB BLOOD ORDERAB LES Final Result Performing Organization Address [facility]/State/ZIP Co de Phone Number [facility] [address] [place] [address] [phone] * (ABNORMAL) Urinalysis Complete (05/21/2025 10:00 AM EDT) Color Urine Yellow [facility] Appearance Urine Clear [facility] PH 5.5 5.0 - 9.0 [facility] Glucose Urine UA Negative Negative mg/dL [facility] Urine Blood Moderate (2+)(A) Negative [facility] Specific Ranger - Urine 1.015 1.005 - 1.025 [facility] Urine Protein 100 (2+)(A) Neg-Trace mg/dL [facility] Urine Ketones Negative Negative mg/dL [facility] Nitrite Urine Negative Negative [facility] Leukocyte Esterase Urine Negative Negative [facility] RBC Urine 11-20(A) 0 - 2 /HPF [facility] Urine WBC 0-5 0 - 5 /HPF [facility] Urine Squamous Epithelial Cell 0-2 0 - 2 /HPF [facility] Urine Bacteria None Seen None Seen [facility] Hyaline Casts, Urine 0-2 0 - 2 /LPF [facility] 05/21/2025 10:0 0 AM EDT 05/21/2025 12:20 PM EDT Generic External Data Provider LAB URINE ORDERAB LES Final Result Performing Organization Address City/[facility]/ZIP Co de Phone Number [facility] [address] [place] [phone] * (ABNORMAL) Testosterone, Free (Dialysis) And Total, MS (05/21/2025 10:00 AM EDT) Testosterone, Total 243(A) 250 - 1100 ng/dL [facility] Comment:For additional infor donna, please refer tohttp://education.[employer].com/faq/[email or web address](This link is being provided for informational/educational purposes only.)This test was developed and its analytical performancecharacteristics have been determined by [employer] [place], [place]. It hasnot been cleared or approved by the U.S. Food and DrugAdministration. This assay has been validated pursuantto the CLIA regulations and is used for clinicalpurposes. Testosterone, Free 52.0 35.0 - 155.0 pg/mL [facility] Comment:This test was develo ped and its analytical performancecharacteristics have been determined by [employer] [place], [place]. It hasnot been cleared or approved by the U.S. Food and DrugAdministration. This assay has been validated pursuantto the CLIA regulations and is used for clinicalpurposes.THIS TEST WAS PERFORMED AT:[employer] [id number] [place] [phone] MARADIAGA MD,PHD 05/21/2025 10:0 0 AM EDT 05/21/2025 11:20 AM EDT us Generic External Data Provider LAB BLOOD ORDERAB LES Final Result Performing Organization Address City/[facility]/ZIP Co de Phone Number [facility] [address] [place] [phone] * PSA,Total (05/21/2025 10:00 AM EDT) Pathologist [facility] Prostate Specific Antigen 0.90 <0.05 - 4.0 ng/mL [facility] Comment:PSA methodology: Abb zohaib Alinity i ChemiluminescentMicroparticle Immunoassay (CMIA) 05/21/2025 10:0 0 AM EDT 05/21/2025 11:20 AM EDT us Generic External Data Provider LAB BLOOD ORDERAB LES Final Result Performing Organization Address [facility] Co de Phone Number [facility] [address] [place] [phone] * LH (05/21/2025 10:00 AM EDT) Pathologist [facility] Lutenizing Hormone 5.6 1.5 - 9.3 mIU/mL [facility] Comment:THIS TEST WAS PERFOR MED AT:[employer] [place] [phone] RODRIGUEZ MD 05/21/2025 10:0 0 AM EDT 05/21/2025 11:20 AM EDT Generic External Data Provider LAB BLOOD ORDERAB LES Final Result Performing Organization Address [facility] de Phone Number [facility] [address] [place] [phone] * (ABNORMAL) Basic Metabolic Panel (05/21/2025 10:00 AM EDT) Pathologist [facility] Sodium 143 135 - 145 mmol/L [facility] Potassium 3.6 3.3 - 5.1 mmol/L [facility] Chloride 107 96 - 108 mmol/L [facility] Carbon Dioxide 28 22 - 29 mmol/L [facility] Anion Gap 12 12 - 20 [facility] Urea Nitrogen (BUN) 30(H) 9 - 16 mg/dL [facility] Creatinine, Serum 1.58(H) 0.5 - 1.4 mg/dL [facility] Estimated Glomerular Filt Rate 46 [facility] Comment:Chronic Kidney Disea se: Estimated GFR < 60 mL/min/1.30k3Wuouls Kidney Disease: Estimated GFR < 15 mL/min/1.73m2 Glucose 130(H) 60 - 115 mg/dL [facility] Calcium 9.5 8.4 - 10.2 mg/dL [facility] 05/21/2025 10:0 0 AM EDT 05/21/2025 11:20 AM EDT us Generic External Data Provider LAB BLOOD ORDERAB LES Final Result [facility] [address] [place] [phone] * Cytopath-cell enhanced (05/21/2025 9:56 AM EDT) 05/21/2025 9:56 AM EDT 05/24/2025 9:35 AM EDT Narrative [facility] - 05/27/2025 8:29 AM EDT ----- ------- Name: Elton Nation Age/Sex: 49/M : 1975 Unit#: [id number] Attend Dr: Bindu Jung [facility] Re05/21/25 Status: DEP [facility] Disch: ----- ------- SPEC : [id number] RECD: 05/24/25 STATUS: ALISIA GHOSH NUM: [id number] JENIFER: 05/21/25 [facility] DR: Bindu Jung [facility] ENTERED: 05/24/25 SP TYPE: Cytology OTHR DR: Juana Johnson MD ORDERED: Cyto-enhanced Diagnosis Urine, cytology: Negative for high-grade urothelial carcinoma. COMMENT: Review of the cytology preparation demonstrates a hypocellular specimen with rare squames and urothelial cells. Red blood cells are noted. There is no significant atypia seen. Clinical History Microscopic hematuria Material Received Urine Gross Description Received is 13 cc of pale yellow fluid from which a ThinPrep slide is prepared. IHC S/NG Disclaimer NOTE: Unless otherwise stated, all tissue is formalin-fixed and paraffin-embedded. Some or all of the immunohistochemical tests reported herein may have been developed and their performance characteristics determined by [facility]. They have not been cleared or approved by the U.S. Food and Drug Administration (FDA). However, the FDA has determined that such clearance or approval is not necessary. This laboratory is certified under the Clinical Laboratory Improvement Amendments of 1988 (CLIA) as qualified to perform high complexity clinical laboratory testing. Copies To: Juana Johnson MD [address] [address] Bnidu Jung [facility] [address] [place] [address] [address] [place] [address] [email or web address] RTD CONTINUED ON NEXT PAGE ----- ------- Name: Elton Nation Age/Sex: 49/M : 1975 Unit#: [id number] Attend Dr: Bindu Jung [facility] Re05/21/25 Status: DEP [facility]F [facility] Disch: ----- ------- SPEC : [id number] RECD: 05/24/25 STATUS: ALISIA GHOSH NUM: [id number] JENIFER: 05/21/[address]: Bindu Jung [facility] ENTERED: 05/24/25 SP TYPE: Cytology OTHR DR: Juana Johnson MD ORDERED: Cyto-enhanced ----- ------- Signed (signature on file) Ashley Becerril MD 05/27/25 0829 ----- ------- END OF REPORT us Generic External Data Provider LAB CYTOLOGY ASHA PETERS Final Result [facility] [address] [place] [phone] * US Renal Complete (03/30/2025 2:32 PM EDT) Anatomical Region Laterality Modality Kidney Ultrasound 03/30/2025 2:32 PM EDT Narrative 03/30/2025 3:02 PM EDT [address] [address] Ultrasound Report Signed Patient: Elton Nation MR#: [id number] : 1975 Acct:[id number] Age/Sex: 49 / M ADM Date: 03/30/25 Loc: HO.US Attending Dr: Gary Bains MD Ordering Physician: Gary Bains MD Date of Service: 03/30/25 Procedure(s): US renal BI Accession Number(s): [id number] cc: Gary Bains MD; Juana Johnson MD [...] 03/30/25 1500 DD/ 1432 TD/TT: 03/30/25 1440 [employer] Estimator: Procedure Note Donotuseinterpreter, Image - 03/30/[address] [address] Ultrasound Report Signed Patient: Elton NationMR#: [id number] : 1975Acct:[id number] Age/Sex: 49 / MADM Date: 03/30/25 Loc: HO.US Attending Dr: Gary Bains MD Ordering Physician: Gary Bains MD Date of Service: 03/30/25 Procedure(s): US renal BI Accession Number(s): [id number] cc: Gary Bains MD; Juana Johnson MD [...] 03/30/25 1500 DD/ 1432 TD/TT: 03/30/25 1440 [employer] Estimator: [facility] External Provider IMG US PROCEDURES Final Result * (ABNORMAL) Glucose, Whole Blood (03/15/2025 9:09 AM EDT) Glucose, Whole Blood 134(H) 60 - 115 mg/dL [facility] Comment:METER #: [id number] 03/15/2025 9:09 AM EDT 03/15/2025 9:23 AM EDT Generic External Data Provider LAB BLOOD ORDERAB LES Final Result Performing Organization Address City/State/[facility] Co de Phone Number [facility] [address] [place] [phone] * (ABNORMAL) POCT HGB A1C (10/23/2024 11:25 AM EDT) Hemoglobin A1C 6.7(A) 4.0 - 6.0 % QC Media Lot # [id number] Lot# Expiration Date Blood 10/23/2024 11:2 5 AM EDT Juana Adkins MD POINT OF CARE TEST EN TER/EDIT ORDERABLES Final Result * (ABNORMAL) Lipid Panel, Standard (08/20/2024 9:52 AM EST) Triglycerides 251(H) <150 mg/dL [facility] Comment:Desirable Triglyceri de: less than 150 mg/dLBorderline High Triglyceride 150-199 mg/dLHigh Triglyceride: 200-499 mg/dLVery High Triglyceride: greater than or equal to 5OO mg/dL Cholesterol 152 <200 mg/dL [facility] Comment:Desirable Cholestero l: less than 200 mg/dLBorderline High Cholesterol: 200-239 mg/dLHigh Cholesterol: greater than 239 mg/dL LDL Cholesterol Calculated 61 <100 mg/dL [facility] Comment:Desirable LDL: less than 100 mg/dLNear Optimal/Above Optimal LDL: 110- 129 mg/dLBorderline High LDL: 130-159 mg/dLHigh LDL: 160-189 mg/dLVery High LDL: greater than or equal to 190 mg/dL HDL Cholesterol 41 >40 mg/dL [facility] Comment:Desirable HDL: great er than 40 mg/dL Note: This HDL assay may give artificially low results in patients with liver disease. Blood Venous blood specimen / Unknown 08/20/2024 9:52 AM EST 08/20/2024 11:20 AM EST Juana Adkins MD LAB BLOOD ORDERABLES Final Result [facility] [address] [place] [phone] * Cologuard?? colon cancer screening (11/06/2023 10:00 AM EDT) Cologuard Result Negative Negative 11/13/19 8:34 AM EDT [employer] (CLIA #:[id number]) Comment: NEGATIVE TEST RESULT. A negative Cologuard [...] (Tania Phan al, N Engl J Med 2014;370(14):9082-4748) The normal value (reference range) for this assay is negative. COLOGUARD RE-SCREENING RECOMMENDATION: Periodic colorectal cancer screening is an important part of preventive healthcare for asymptomatic individuals at average risk for colorectal cancer. Following a negative Cologuard result, the [place] [employer] Society and U.S. Multi-Society Task Force screening guidelines recommend a Cologuard re-screening interval of 3 years. References: [place] [employer] Guideline for Colorectal Cancer Screening: https://www.cancer.org/cancer/zoerm-gxapfc-ufyluq/wihlkkwfe-mnhflppbj-gjxxnmv/ac s-rec ommendations.html.; Del DK, Patience CR, Matthew ChavesK, Colorectal Cancer Screening: Recommendations for Physicians and Patients from the U.S. Multi-Society Task Force on Colorectal Cancer Screening , Am J Gastroenterology 2017; 112:8638-3472. TEST DESCRIPTION: Composite algorithmic analysis of stool [...] (Tania Phan al, N Engl J Med 2014;370(14):1882-8177.) Cologuard may produce a false negative or false positive result (no colorectal cancer or precancerous polyp present at colonoscopy follow up). A negative Cologuard test result does not guarantee the absence of CRC or advanced adenoma (pre-cancer). The current Cologuard screening interval is every 3 years. ([place] [employer] Society and U.S. Multi-Society Task Force). Cologuard performance data in a 10,000 patient pivotal study using colonoscopy as the reference method can be accessed at the following location: www.[employer].Attune RTD/results. Additional description of the Cologuard test process, warnings and precautions can be found at www.colMetroWorksrd.com. Stool specimen (specimen) 11/06/2023 10:00 AM EDT 11/07/2023 2:00 PM EDT us Juana Adkins MD LAB MOLECULAR DIAGNOS TICS ORDERABLES Final Result [employer] (CLIA #:[id number]) [address] [place] [address] [phone] * HEPATITIS C ANTIBODY RFLX (07/21/2019 9:00 AM EST) Pathologist [facility] HEPATITIS C ANTIBODY NONREACTIVE NONREACTIVE [facility] Comment: Antibodies to HCV not detected; does not exclude early acute HCV infection. 07/21/2019 9:00 AM EST us Juana Adkins MD HISTORICAL/NON ORDERA BLE LABS Final Result Performing Organization Address [facility] Co de Phone Number [facility] [address] * HIV AB/AG (07/21/2019 9:00 AM EST) Pathologist [facility] HIV AG/AB NONREACTIVE NR FOUNDAT[facility] ON LAB [...] of detection of this assay. The [employer] HIV Ag/Ab Combo assay result and supplemental assay results should be interpreted in conjunction with the patient's clinical presentation, history and other laboratory results. If the results are inconsistent with clinical evidence, additional testing is suggested to confirm the result. 07/21/2019 9:00 AM EST Juana Adkins MD HISTORICAL/NON ORDERA BLE LABS Final Result [facility] Critical access hospital [address] from Last 3 Months or Most Recently Relevant to Health Maintenance Insurance [facility] < 65 Care Teams Set Up [employer]ic [employer] Relationship Specialty Start Date End Date Juana Johnson MD [address] [place] [address] PCP - General Family Medicine 08/12/18
--- NOTE | 2025-06-08 08:18 | MHC.OFFVIS ---
Intake Visit Reasons: 3m follow up/ Testo/ free t/ LH/FSH Intake Note: Patient is present for 3M/LABS Urology Medication:NONE Antibiotic Allergy:NONE Blood Thinner:NONE Steward/Stewardess Tourist Class Required: No Steward/Stewardess Tourist Class Services: Steward/Stewardess Tourist Class Present Steward/Stewardess Tourist Class Name: Porter Potter937 Allergies Seasonal Allergies Allergy (Unknown, Verified 06/08/25 08:56) Unknown Medication List - Last Reconciled 06/08/25 by ANDREW BlairP- amlodipine 5 mg PO DAILY atorvastatin 20 mg PO DAILY colchicine 0.6 mg PO DAILY hydrochlorothiazide 50 mg PO DAILY hydrocodone-acetaminophen 5-325 mg 1 tab PO Q4-6H PRN losartan 100 mg PO DAILY metformin ER 500 mg PO DAILY HPI Comments Details: Elton is pleasant 50-year-old Polish-speaking male patient of Dr. Adkins. He has a past medical history of anemia and hypertension. He presents to the office today for follow-up. Of note, patient was seen approximately 5 months ago as a new patient for hypogonadism at which time labs were ordered for further assessment evaluation. These labs were reviewed and communicated with the patient today as noted and trended below: Testosterone: 10/20 237, 05/22 243 Free testosterone: 05/22 52.0 PSA: 05/22 0.9 Estradiol: 05/22 21 LH: 05/22 5.6 Prolactin: 05/22 10.4 SHB/25 12 We did discuss in review potential causes of hypogonadism as well as further treatment options and risks and benefits of these treatment options. He does continue to experiences issues with low libido and maintaining his erections. We did discuss lifestyle modifications to assist with hypogonadism. He denies any bothersome urinary issues. He denies urinary urgency, urinary frequency, incontinence, nocturia, hematuria, dysuria, foul smelling urine, changes to urinary stream, flank pain, fever, and or chills. He is happy with his current voiding parameters. In office urinalysis results reviewed with the patient today 3+ microscopic hematuria and 3+ proteinuria. He denies any known workplace chemical exposure or history of smoking. We did discussed potential causes of microscopic hematuria as well as further workup in risks and benefits of these interventions. I discussed reasons for blood in the urine may include but are not limited to kidney stones, cancer in the urinary tract, BPH, kidney stone disease or inflammatory conditions of the urinary tract. I have discussed workup to include cystoscopy evaluation. All questions were answered. He otherwise offers no other issues or concerns at this time. Urine Cytology: 01/20 & 05/22 Negative for high-grade urothelial carcinoma PFSH Medical History Hypertension Knee arthropathy Anemia Social History Household Members: Spouse and Children Are you a primary health care administrator to a significant other at home: No Do you presently have visiting nurse or other home services: No Alcohol intake: never Patient Tobacco Use Status: Never used Tobacco Second Hand Smoke Exposure: No Current occupational status: unemployed Current occupation: rt handed Review of Systems Const All systems reviewed & are unremarkable except as noted in HPI and below Physical Exam Const General: cooperative, healthy appearing, comfortable, no acute distress, well developed, alert and awake Nutritional Appearance: overweight Orientation/consciousness: patient oriented x3 Limitations: language barrier HEENT Head: Yes normal to inspection, Yes normocephalic and Yes atraumatic Ears: hearing grossly normal bilaterally Eyes General: appearance normal, both eyes and all related structures Neck Neck: Yes normal visual inspection and Yes trachea midline Chest Chest palpation & inspection: normal inspection of the chest Resp Effort & Inspection: normal respiratory effort and able to speak in complete sentences Cardio Rate: regular rate GI Inspection: Yes normal to inspection General: Yes no CVA tenderness Back/Spine/Pelvis Back: no CVA tenderness Skin General skin exam: no rashes or lesions noted Neuro General: patient oriented x3 Extrem General: Yes normal to inspection Psych Appearance: grossly normal and well kempt Mental Status: mental status grossly normal Speech and movement: Normal speech and movement present and Clear speech present Affect: normal affect Attitude: cooperative Thought process: Normal thought process present Thought content: Normal thought content present Insight: Fair insight present (Psych) Judgement: Fair judgement present (Psych) Results AMB Urinalysis, Automated UA Leukoctes 0 Elisabet/uL Last Edit by ALBERTINA Aguero on 06/08/25 08:33 UA Nitrite Negative Last Edit by ALBERTINA Aguero on 06/08/25 08:33 UA Urobilinogen 0.2 mg/dL Last Edit by ALBERTINA Aguero on 06/08/25 08:33 UA Protein 100 mg/dL Last Edit by ALBERTINA Aguero on 06/08/25 08:33 UA pH 6.0 Last Edit by ALBERTINA Aguero on 06/08/25 08:33 UA Blood 200 Samuel/uL Last Edit by ALBERTINA Aguero on 06/08/25 08:33 UA Specific [place] 1.015 Last Edit by ALBERTINA Aguero on 06/08/25 08:33 UA Ketone Negative Last Edit by ALBERTINA Augero on 06/08/25 08:33 UA Bilirubin 0 mg/dL Last Edit by ALBERTINA Aguero on 06/08/25 08:33 UA Glucose 0 mg/dL Last Edit by ALBERTINA Aguero on 06/08/25 08:33 Results Reviewed Results Reviewed: Laboratory Last Values Urine pH (Auto) 6.0 06/08/25 08:33 Specific [place] (Auto) 1.015 06/08/25 08:33 Urine Protein (Auto) 100 mg/dL 06/08/25 08:33 Glucose (UA)(Auto) 0 mg/dL 06/08/25 08:33 Urine Ketones (Auto) Negative 06/08/25 08:33 Urine Blood (Auto) 200 Samuel/uL 06/08/25 08:33 Urine Nitrite (Auto) Negative 06/08/25 08:33 Urine Bilirubin (Auto) 0 mg/dL 06/08/25 08:33 Urine Urobilinogen (Auto) 0.2 mg/dL 06/08/25 08:33 Leukocyte Esterase (Auto) 0 Elisabet/uL 06/08/25 08:33 Date of Service: 03/30/25 Procedure(s): US renal BI FINDINGS: RIGHT KIDNEY: 10.5 x 4.9 x 5.8 cm (SAG x AP x TRV). The kidney is normal in size, contour, and echogenicity. Renal cortical thickness is normal. No calculi or suspicious focal parenchymal lesions. No hydronephrosis. There are multiple small simple cysts, largest measuring 1.4 x 1.0 x 1.3 cm. LEFT KIDNEY: 11.3 x 5.3 x 6.0 cm (SAG x AP x TRV). The kidney is normal in size, contour, and echogenicity. Renal cortical thickness is normal. No calculi or suspicious focal parenchymal lesions. No hydronephrosis. There are multiple small simple cysts, the largest measuring 3.1 x 3.0 x 3.8 cm. IMPRESSION: 1. Bilateral renal cysts. 2. Otherwise normal examination. Assessment & Plan Assessment & Plan (1) Microscopic hematuria: Code(s): R31.29 - Other microscopic hematuria Category: Medical (2) Erectile dysfunction associated with type 2 diabetes mellitus: Code(s): E11.69 - Type 2 diabetes mellitus with other specified complication; N52.1 - Erectile dysfunction due to diseases classified elsewhere Category: Medical (3) Low libido: Code(s): R68.82 - Decreased libido Category: Medical (4) Hypogonadism in male: Code(s): E29.1 - Testicular hypofunction Category: Medical Plan In office urinalysis results reviewed with the patient today; as noted above; will send for urine cytology. We did discussed potential causes of hypogonadism as well as further treatment options and risks and benefits of these treatment options. (testosterone replacement verses stimulation testing verses low-dose Cialis) We also discussed potential causes of microscopic hematuria as well as further workup to include imaging and in office cystoscopy; risks and benefits of these interventions were discussed Previous urine cytology results reviewed with the patient today. Continue to follow-up with nephrology for proteinuria as planned Start low-dose Cialis as discussed and prescribed. We did discussed lifestyle modifications to assist with borderline hypogonadism. We discussed the importance of management and diabetes for urological health as well as overall health and well-being. He currently denies any bothersome urinary issues or concerns. He reports be happy with current voiding parameters. Will obtain testosterone free and total and A1c in 3 months. Follow-up in 3-6 months with labs to be completed prior; or sooner with any issues, concerns, and or questions. Orders: Orders AMB Urinalysis Automated Today Z13.9 - Encounter for screening, unspecified Urine Cytology Today R31.29 - Other microscopic hematuria Hemoglobin A1c 3 Months E11.9 - Type 2 diabetes mellitus without complications Testosterone, Free/Total 3 Months E11.69 - Type 2 diabetes mellitus with other specified complication, N52.1 - Erectile dysfunction due to diseases classified elsewhere Medications: New tadalafil (Cialis) [id number] [facility] [id number] Member [id number] 5 mg PO DAILY 90 tabs 2RF 90 days Patient Instructions: The patient had an opportunity to ask questions regarding the treatment plan. All questions were answered. Physical exam, labs, and imaging were discussed and reviewed in detail. As well as risks, benefits, and discussion of treatment choices. No major barriers to understanding were identified. The patient expressed understanding and agreement with the above treatment plan. The patient was made aware they should contact our office by phone for worsening of their current condition, the appearance of new symptoms, or with any questions or concerns. Compliance is encouraged with any medications and follow up testing that is ordered. It is a privilege to be allowed the opportunity to participate in? your urological care.? Again, if you have any questions or concerns If you have any questions or concerns please do not hesitate to contact me. The office is [phone]. This note is constructed using voice recognition software. While every effort has been made to ensure accuracy guinea pig breeder errors may have been included. Yours sincerely, ORESTES Blair Coding Level of Care Code Est Pt Level 4 (54130) Complex EM visit Add On G2211 Diagnoses Microscopic hematuria R31.29 Erectile dysfunction associated with type 2 diabetes mellitus E11.69; N52.1 Low libido R68.82 Hypogonadism in male E29.1
== END 2025-06-08 08:53 | disposition home or self-care (01) ==
LOC: HO.HUSH 08:09
PROVIDERS: PCP Internal Medicine; Visit Provider Nurse Practitioner Family
DX: R31.29 Other microscopic hematuria (principal); E11.69 Type 2 diabetes mellitus with other specified complication; N52.1 Erectile dysfunction due to diseases classified elsewhere; R68.82 Decreased libido; E29.1 Testicular hypofunction; Z13.9 Encounter for screening, unspecified
CPT/HCPCS: 99214; G2211